=== PATIENT | male | born 1960 | race Caucasian/White ===

== ENCOUNTER 2018-10-22 19:28 | Inpatient (IN) | payer MEDICARE ==
[2018-10-22 20:36] LABS: BF Color Yellow; Body Fluid Source Peritoneal Fluid; Clarity Hazy (Clear); Tube # EDTA; WBC/NonHematic-Auto 2570 /cumm
[2018-10-22 20:37] LABS: BF RBC Count - Manual 8 /cumm
[2018-10-22 20:44] LABS: #Eosinphils 0.3 thou/uL (0.0-0.7); #Lymphocytes 1.1 thou/uL (1.20-3.40); #Monocytes 0.8 thou/uL (0.11-0.59); #Neutrophils 9.8 thou/uL (1.40-6.50); %Basophils 0.2 % (0.0-1.0); %Eosinophils 2.3 % (0.0-10.0); %Lymphocytes 9.1 % (21.0-51.0); %Monocytes 6.4 % (0.0-10.0); %Neutrophils 82.1 % (42.0-75.0); Hemoglobin 11.8 g/dL (14.0-18.0); Mean Corpuscular HGB CONC 34.8 g/dL (32.0-36.0); Mean Corpuscular Hemoglobin 31.3 pg (27.0-31.0); Mean Corpuscular Volume 89.7 fL (78.0-98.0); Mean Platelet Volume 7.3 fL (7.4-10.4); Platelet Count 289 thou/uL (130-400); RBC Distribution Width 12.3 % (11.5-14.5); Red Blood Cell (RBC) Count 3.76 mill/uL (4.70-6.10); White Blood Cell (WBC) Count 11.9 thou/uL (4.8-10.8)
[2018-10-22 20:49] LABS: BF Segmented Neutrophils 88 %; Cell Count Non Hematic 8 %; Lymphocytes 4 %
[2018-10-22 21:18] LABS: ALT (SGPT) 69 U/L (8-55); AST (SGOT) 68 U/L (5-34); Albumin 3.2 g/dL (3.5-5.0); Alkaline Phosphatase 74 U/L (40-150); Anion Gap 24 mmol/L (10-20); BUN (Urea Nitrogen) 71 mg/dL (8.4-25.7); Bilirubin, Total 0.5 mg/dL (0.2-1.2); Calc. Creatinine Clearance 0 mL/min (70-130); Calcium 8.7 mg/dL (7.8-10.44); Carbon Dioxide 14 mmol/L (22-29); Chloride 100 mmol/L (98-107); Estimated GFR-MDRD 3; Globulin 3.8 g/dL (2.4-3.5); Glucose 99 mg/dL (70-105); Sodium 135 mmol/L (136-145)
[2018-10-22 21:20] LABS: Potassium 2.8 mmol/L (3.5-5.1)
[2018-10-22] MEDS ORDERED: Ondansetron ODT 8 MG TAB ONE (22:28)
[2018-10-22] MEDS ORDERED: Ondansetron PF 4 MG/2 ML Vial ONE (22:28)
[2018-10-22] MEDS ORDERED: Morphine 4 MG/ML VIAL ONE (22:30)
[2018-10-22] MEDS ORDERED: Morphine 2 MG/ML SYRINGE ONE (22:31)
[2018-10-22] MEDS ORDERED: Acetaminophen 500 MG TAB ONE (23:41)
[2018-10-22] MEDS ORDERED: Cefepime 1 GM in Sodium Chloride 0.9% 100 ML IVPB SCH (23:45)
[2018-10-23 00:55] VITALS: BMI 33.2
--- NOTE | 2018-10-23 00:57 | PDOC.FPRHP ---
- History of Present Illness Chief Complaint: Abdominal Pain History of Present Illness: Pt is a 58 yo M with history of HTN and BPH who presents with abdominal pain. Pt said Sunday he felt a cyst pop inside of his abdomen. He has had 3 previous episodes that usually occur every year. He does peritoneal dialysis at night at home, but he was unable to since his catheter was clogged. He decided to go to the dialysis clinic, where they put TPA into his catheter. He began to experience abdominal pain after they put in the TPA. They marbin fluid off while there and he brought it with him to the hospital. He he had some nausea, vomiting, and diarrhea Sunday due to a stomach virus. He says when this happens everything seems to get off balance, but those symptoms have resolved. He has not eaten in the past 3 days. ED Course: In the ED, they started him on Vanc and Cefipime with Dr. Pedraza's instructions. The peritoneal fluid was found to have WBC. - Allergies/Adverse Reactions Allergies Allergy/AdvReac Type Severity Reaction Status Date / Time No Known Allergies Allergy Verified 10/23/18 01:04 - Home Medications Medication Instructions Recorded Confirmed Type Carvedilol [Coreg] 12.5 mg PO BID 08/01/16 10/23/18 History Cholecalciferol (Vitamin D3) 2,000 unit PO DAILY 08/01/16 10/23/18 History [Vitamin D3] Terazosin HCl [Hytrin] 2 mg PO HS 08/01/16 10/23/18 History Cipro 250 mg PO BID@0600,2000 #20 tab 08/05/16 10/23/18 Rx Calcitriol 0.5 mcg PO DAILY 10/23/18 10/23/18 History Calcium Acetate 2,001 mg PO TID-WM 10/23/18 10/23/18 History Cinacalcet HCl [Sensipar] 30 mg PO DAILY 10/23/18 10/23/18 History Ferrous Sulfate [Slow Release Iron] 325 mg PO BID 10/23/18 10/23/18 History Fexofenadine HCl 180 mg PO DAILY 10/23/18 10/23/18 History Glucosam/Chondr-Msm1/D3/C/Allen 2 tablet PO DAILY 10/23/18 10/23/18 History [Glucosamine Chondroitin Complex] Ibuprofen [Motrin] 400 mg PO TID PRN 10/23/18 10/23/18 History Multivitamin With Minerals 1 tablet PO DAILY 10/23/18 10/23/18 History [Multivitamins with Minerals] Omeprazole 20 mg PO DAILY PRN 10/23/18 10/23/18 History Potassium Chloride 7.5 ml PO DAILY 10/23/18 10/23/18 History Sucroferric Oxyhydroxide [Velphoro] 500 mg PO TID-WM 10/23/18 10/23/18 History - History PMHx: HTN, BPH PSHx: None FHx: None Social: He hasn't smoked in 25 years. His last beer was months ago, and he does not use recreational drugs. - Review of Systems General: reports: fever/chills (no fevers, he says he has chills all the time) Eyes: denies: vision changes ENT: denies: nasal congestion Respiratory: denies: cough, shortness of breath Cardiovascular: denies: chest pain Gastrointestinal: reports: abdominal pain. denies: nausea, vomiting, diarrhea, constipation Skin: denies: rashes, itching Musculoskeletal: reports: pain (low back pain) Neurological: denies: numbness, weakness - Vital signs BP: [120/73] HR: [100] RR: [16] Tmax: [98.1] Pox: [96]% on [RA] Wt: [107 kg] - Physical Exam Constitutional: awake, alert and oriented (He was sitting uncomfortably) HEENT: PERRLA, EOMI, MMM, oropharynx clear Neck: no LAD Heart: RRR, normal S1/S2 Lungs: CTAB Abdomen: bowel sounds present -Abdomen: TTP in all quadrants, guarding present Musculoskeletal: normal structure, ROM grossly normal Neurological: no focal deficit Skin: no rash/lesions Heme/Lymphatic: no unusual bruising or bleeding Psychiatric: intact recent and remote memory FMR H&P: Results - Labs Result Diagrams: 10/23/18 05:08 10/23/18 05:08 Lab results: WBC 11.9 thou/uL (4.8-10.8) H 10/22/18 20:37 Hgb 11.8 g/dL (14.0-18.0) L 10/22/18 20:37 Hct 33.8 % (42.0-52.0) L 10/22/18 20:37 MCV 89.7 fL (78.0-98.0) 10/22/18 20:37 Plt Count 289 thou/uL (130-400) 10/22/18 20:37 Neutrophils % 82.1 % (42.0-75.0) H 10/22/18 20:37 Sodium 135 mmol/L (136-145) L 10/22/18 20:37 Potassium 2.8 mmol/L (3.5-5.1) L* 10/22/18 20:37 Chloride 100 mmol/L (98-107) 10/22/18 20:37 Carbon Dioxide 14 mmol/L (22-29) L 10/22/18 20:37 BUN 71 mg/dL (8.4-25.7) H 10/22/18 20:37 Creatinine 15.25 mg/dL (0.7-1.3) H 10/22/18 20:37 Glucose 99 mg/dL (70-105) 10/22/18 20:37 Calcium 8.7 mg/dL (7.8-10.44) 10/22/18 20:37 Total Bilirubin 0.5 mg/dL (0.2-1.2) 10/22/18 20:37 AST 68 U/L (5-34) H 10/22/18 20:37 ALT 69 U/L (8-55) H 10/22/18 20:37 Alkaline Phosphatase 74 U/L (40-150) 10/22/18 20:37 Serum Total Protein 7.0 g/dL (6.0-8.3) 10/22/18 20:37 Albumin 3.2 g/dL (3.5-5.0) L 10/22/18 20:37 FMR H&P: A/P - Problem List (1) Peritonitis Current Visit: No Status: Suspected Code(s): K65.9 - PERITONITIS, UNSPECIFIED Comment: Gram Negative rods (2) HTN (hypertension) Current Visit: No Status: Chronic Code(s): I10 - ESSENTIAL (PRIMARY) HYPERTENSION - Plan Pt is a 58 yo M with history of HTN and BPH who presents with abdominal pain. 1. Peritonitis Generalized abdominal pain * WBCs: 2500 with neutrophil predominance seen in peritoneal fluid * Started on Vanc and Cefepime * Dr. Pedraza consulted * Will wait to see results of Cx and diff 2. HTN * BP: 126/77 * Will continue Carvediolol * Will monitor his BP 3. BPH * Will continue Terazosin Lines: Peripheral Code Status: Full Diet: NPO, possible surgery tomorrow Activity: Ad Twyla DVT Prophylaxis: Heparin Dispo: Inpt, expected LOS >2 days FMR H&P: Upper Level - Pertinent history 58 yo M w/ pMH of ESRD on daily PD presents with one week history of increasing abdominal pain. Pt reports pain started Sunday and progressively worsened. He reports he went to dialysis center for evaluation after clogged PD catheter and was given TPA and sent for continued abx for peritonitis. Fluid was drawn and sent for culture and sensitivities. Currently denies fever, chills, NVDC. Pt does report abdominal pain. - Pertinent findings ROS: As above PE: Gen: Mild pain HEENT: NCAT CV: Tachycardic, rhythm regular Pulm: CTA-B/L Abd: Soft, positive rebound tenderness and guarding. Diminished BSX4. PD catheter in place w/o surrounding erythema Skin: No rashes/lesions - Plan Date/Time: 10/23/18 0051 I, Vishnu Connelly, , have evaluated this patient and agree with findings/ plan as outlined by inclusion internship resident. Pertinent changes/additions are listed here. 1) Peritonitis - fluid studies pending - cont vanc and cefepime renally dosed per pharm recs - vanc trough daily prior to subsequent dose to be drawn after dialysis - nephro consulted, appreciate recs 2) BPH: - cont home meds 3) Tachycardia: normal rhythm on exam 12 lead ordered 4) HTN - Cont home medications PCP: None city call Code Status: Full code Dispo: Stable, admit to medical IP for continued abx therapy and await fluid cultures. Addendum - Attending - Attending Attestation Date/Time: 10/23/18 3101 I personally evaluated the patient and discussed the management with Dr. Jules/ Godwin. I agree with the History, Examination, Assessment and Plan documented above with any addition or exceptions noted below. Patient here for abdominal pain concerning for peritonitis. Nephro on board, advised continuing abx for now. They will try to open up PD catheter. He is currently afebrile and no abdominal pain. Plans for PD tonight.
[2018-10-23] MEDS ORDERED: Potassium Chloride 20 MEQ TAB PO SCH ×2 (01:30→06:30)
[2018-10-23] MEDS ORDERED: Ondansetron ODT 4 MG TAB PO PRN (02:17)
[2018-10-23] MEDS ORDERED: Senokot S 8.6-50 MG TAB PO PRN (02:17)
[2018-10-23] MEDS ORDERED: Vancomycin HCl 1 GM in Sodium Chloride 0.9% 250 ML 300 ML IVPB SCH (06:00)
[2018-10-23] MEDS ORDERED: Cefepime 1 GM in Sodium Chloride 0.9% 100 ML IVPB SCH ×2 (06:00→23:59)
[2018-10-23] MEDS: Acetaminophen 325 MG TAB PO PRN ×2 (06:03→18:31)
[2018-10-23 06:10] LABS: Anion Gap 23 mmol/L (10-20); BUN (Urea Nitrogen) 75 mg/dL (8.4-25.7); Calc. Creatinine Clearance 8 mL/min (70-130); Calcium 8.4 mg/dL (7.8-10.44); Carbon Dioxide 15 mmol/L (22-29); Chloride 100 mmol/L (98-107); Estimated GFR-MDRD 3; Glucose 129 mg/dL (70-105); Sodium 135 mmol/L (136-145)
[2018-10-23 06:19] LABS: Potassium 2.9 mmol/L (3.5-5.1)
[2018-10-23 06:20] LABS: Band 31 % (5-11); Hemoglobin 11.2 g/dL (14.0-18.0); Lymphocytes 5 % (21-51); MDiff Complete? YES; Mean Corpuscular HGB CONC 34.6 g/dL (32.0-36.0); Mean Corpuscular Hemoglobin 31.2 pg (27.0-31.0); Mean Corpuscular Volume 90.1 fL (78.0-98.0); Mean Platelet Volume 7.2 fL (7.4-10.4); Monocytes 3 % (0-10); Neutrophil 61 % (42-75); Platelet Count 263 thou/uL (130-400); Platelet Morphology Comment Appears Adequate; RBC Distribution Width 12.3 % (11.5-14.5); Red Blood Cell (RBC) Count 3.59 mill/uL (4.70-6.10); White Blood Cell (WBC) Count 16.9 thou/uL (4.8-10.8)
[2018-10-23] MEDS: Ferrous Sulfate 325 MG TAB PO SCH (09:00)
[2018-10-23] MEDS: Heparin 5,000 UNITS/ML VIAL SC SCH ×3 (09:00→21:01)
[2018-10-23] MEDS: Famotidine 20 MG TAB PO SCH (09:00)
[2018-10-23] MEDS: Carvedilol 6.25 MG TAB PO SCH ×2 (09:00→21:54)
[2018-10-23] MEDS ORDERED: Calcitriol 0.25 MCG CAP PO SCH (09:00)
[2018-10-23] MEDS: Potassium Chloride 20 MEQ/100 ML PREMIX BAG IVPB SCH ×2 (10:42→12:34)
[2018-10-23] MEDS: Calcium Acetate 667 MG CAP PO SCH ×3 (10:42→18:32)
--- NOTE | 2018-10-23 11:37 | CON ---
DATE OF CONSULTATION: SERVICE: Renal Medicine. HISTORY OF PRESENT ILLNESS: Mr. Ribeiro is a 58-year-old white male with ESRD and admitted for abdominal pain. His PD fluid was noted to be quite cloudy. Empiric IV antibiotic was given. In addition, the PD catheter was not functioning well and Activase overnight was placed. For this reason, we will attempt to use the peritoneal dialysis tonight. He is empirically on IV vancomycin and IV ceftazidime. REVIEW OF SYSTEMS: Positive for abdominal pain. Positive for cloudy PD fluid. No nausea. No vomiting. Positive for mild abdominal pain. No diarrhea. No constipation. No dysuria. No urinary frequency. No headache. No diplopia. No syncopal episode. Denies any fever or chills. Appetite and energy level are fair. MEDICATIONS: The patient is currently on; 1. Calcitriol 0.25 mg once a week. 2. Calcium acetate 1667 mg 2 tablets t.i.d. with meals. 3. Carvedilol 12.5 mg p.o. b.i.d. 4. Cefepime 1 g IV daily. 5. Cholecalciferol 2000 units daily. 6. Famotidine 20 mg tablet once a day. 7. Ferrous sulfate 325 mg q.a.m. 8. Heparin 5000 units subcu t.i.d. 9. KCl p.r.n. 10. Terazosin 2 mg at bedtime. 11. Vancomycin 1 g p.r.n. PAST MEDICAL HISTORY: ESRD and currently on maintenance peritoneal dialysis - CCPD - secondary to autosomal dominant polycystic kidney disease. PAST SURGICAL HISTORY: Status post PD catheter placement. SOCIAL HISTORY: The patient lives in the [facility] area. He is single, lives alone. No children. No smoking. No alcohol. Currently not working. Education, high school. No IV drug abuse. No blood transfusion. ALLERGIES: NONE. TRAUMA: None. IMMUNIZATIONS: Up-to-date. HOSPITALIZATIONS: Please see past medical history. FAMILY HISTORY: Positive family history of ESRD, one brother was on dialysis. PHYSICAL EXAMINATION: VITAL SIGNS: Blood pressure is 131/85, heart rate 93, respiratory rate 20, temperature 97.7, and pulse ox 92% on room air. GENERAL: Noted to be awake, alert, comfortable, not in distress. SKIN: Adequate turgor. HEENT: He has pinkish conjunctivae. Anicteric sclerae. NECK: No neck mass. No carotid bruits. No JVD. CHEST: No deformities. LUNGS: Clear breath sounds. No wheezing. No crackles. HEART: Normal sinus rhythm. No murmur. No gallops. No rubs. ABDOMEN: Globular, soft. Mildly tender on deep palpation. Positive for PD catheter. EXTREMITIES: No edema. No deformities. LABORATORY DATA: Laboratories of October 23, 2018; white count 16.9, hemoglobin 11.2. Sodium 135, potassium 2.9, chloride 100, carbon dioxide 15, BUN 75, creatinine 15.23, glucose 129, and calcium 8.4. Blood culture, no growth today. PD fluid Gram stain, no bacteria noted. Culture are still pending. PD cell count shows 2570, mostly segmental neutrophils. ASSESSMENT AND PLAN: 1. Acute peritonitis - awaiting for peritoneal dialysis fluid culture to come. We will empirically treat with IV antibiotics. Currently, on cefepime and vancomycin. Continue current management. 2. End-stage renal disease - we will resume peritoneal dialysis tonight. Activase was placed in the peritoneal dialysis catheter due to the fact it was nonfunctional. We will attempt to use the peritoneal dialysis catheter tonight. Overall, agree with current management. Job ID: [id number]
[2018-10-23] MEDS: Terazosin HCl 1 MG CAP PO SCH (21:01)
[2018-10-23] MEDS: Cefepime 1 GM in Sodium Chloride 0.9% 100 ML IVPB SCH (23:51)
[2018-10-23 23:52] LABS: Vancomycin, Trough 11.4 ug/mL
[2018-10-24] MEDS ORDERED: Vancomycin HCl 1 GM in Sodium Chloride 0.9% 250 ML 300 ML IVPB SCH (00:01)
[2018-10-24 06:01] LABS: #Eosinphils 0.1 thou/uL (0.0-0.7); #Lymphocytes 0.5 thou/uL (1.20-3.40); #Monocytes 0.7 thou/uL (0.11-0.59); #Neutrophils 11.4 thou/uL (1.40-6.50); %Eosinophils 0.7 % (0.0-10.0); %Lymphocytes 3.9 % (21.0-51.0); %Monocytes 5.4 % (0.0-10.0); %Neutrophils 90.1 % (42.0-75.0); Hemoglobin 10.1 g/dL (14.0-18.0); Mean Corpuscular HGB CONC 32.9 g/dL (32.0-36.0); Mean Corpuscular Volume 94.2 fL (78.0-98.0); Mean Platelet Volume 7.8 fL (7.4-10.4); Platelet Count 224 thou/uL (130-400); RBC Distribution Width 12.6 % (11.5-14.5); Red Blood Cell (RBC) Count 3.27 mill/uL (4.70-6.10); White Blood Cell (WBC) Count 12.6 thou/uL (4.8-10.8)
[2018-10-24 06:22] LABS: Anion Gap 24 mmol/L (10-20); BUN (Urea Nitrogen) 94 mg/dL (8.4-25.7); Calc. Creatinine Clearance 8 mL/min (70-130); Calcium 9.5 mg/dL (7.8-10.44); Carbon Dioxide 13 mmol/L (22-29); Chloride 103 mmol/L (98-107); Estimated GFR-MDRD 3; Glucose 98 mg/dL (70-105); Potassium 3.5 mmol/L (3.5-5.1); Sodium 136 mmol/L (136-145)
[2018-10-24] MEDS: Carvedilol 6.25 MG TAB PO SCH ×2 (08:12→21:10)
[2018-10-24] MEDS: Calcium Acetate 667 MG CAP PO SCH ×3 (08:12→17:04)
[2018-10-24] MEDS: Ferrous Sulfate 325 MG TAB PO SCH (08:12)
[2018-10-24] MEDS: Famotidine 20 MG TAB PO SCH (08:13)
[2018-10-24] MEDS: Heparin 5,000 UNITS/ML VIAL SC SCH ×3 (08:13→21:10)
--- NOTE | 2018-10-24 08:59 | PDOC.FM ---
- Subjective Subjective: Pt is doing well today. No change from yesterday. Dr. Pedraza was unable to regain function of PD catheter. NPO at this time. - Objective Vital Signs & Weight: Vital Signs (12 hours) Temp Pulse Resp BP BP Pulse Ox 10/24/18 08:12 99/64 10/24/18 07:50 98.3 F 84 22 H 104/68 94 L 10/24/18 00:00 98.1 F 77 18 101/66 92 L 10/23/18 21:54 99/64 Weight Admit Weight 107.32 kg Weight 107.32 kg I&O: 10/23/18 10/24/18 10/25/18 06:59 06:59 06:59 Intake Total 200 1090 Output Total 50 Balance 150 1090 Result Diagrams: 10/24/18 05:34 10/24/18 05:34 Phys Exam - Physical Examination Constitutional: NAD HEENT: PERRLA, moist MMs Neck: no JVD, full ROM Respiratory: no wheezing, no rhonchi, clear to auscultation bilateral Cardiovascular: RRR, no significant murmur Gastrointestinal: soft, non-tender distended abdomen, bowel sounds difficult to appreciate w/ fluid Musculoskeletal: pulses present trace edema Dx/Plan (1) Acute peritonitis Code(s): K65.0 - GENERALIZED (ACUTE) PERITONITIS Status: Acute (2) Abdominal pain Code(s): R10.9 - UNSPECIFIED ABDOMINAL PAIN Status: Acute (3) ESRD (end stage renal disease) on dialysis Code(s): N18.6 - END STAGE RENAL DISEASE; Z99.2 - DEPENDENCE ON RENAL DIALYSIS Status: Chronic (4) HTN (hypertension) Code(s): I10 - ESSENTIAL (PRIMARY) HYPERTENSION Status: Chronic (5) Peritonitis Code(s): K65.9 - PERITONITIS, UNSPECIFIED Status: Suspected (6) Sepsis Code(s): A41.9 - SEPSIS, UNSPECIFIED ORGANISM Status: Suspected - Plan Plan: Pt is a 58 yo M with history of HTN and BPH who presents with abdominal pain. 1. Peritonitis Generalized abdominal pain * WBCs: 2500 with neutrophil predominance seen in peritoneal fluid * Started on Vanc and Cefepime; Vanc trough 11.4, pharmacy to dose * Dr. Pedraza consulted, he was unable to regain function of PD catheter with ateplase. Will need PD catheter exchange and temporary hemodialysis * Dr. Palmer consulted * Will wait to see results of Cx and diff 2. HTN * BP: 126/77 * Will continue Carvediolol * Will monitor his BP 3. BPH * Will continue Terazosin Lines: Peripheral Code Status: Full Diet: NPO, possible surgery tomorrow Activity: Ad Twyla DVT Prophylaxis: Heparin Dispo: Inpt, expected LOS >2 days Addendum - Attending - Attending Attestation Date/Time: 10/24/18 1140 I personally evaluated the patient and discussed the management with Dr. Montes. I agree with the History, Examination, Assessment and Plan documented above with any addition or exceptions noted below. Patient here on abx with concern for infected PD catether and peritonitis. He is overall doing well. Afebrile. His PD catheter is nonfunctional. Patient will undergo HD port placement with Surgery today and will need revision of his PD catheter. Continue abx and await cx.
[2018-10-24] MEDS ORDERED: Vancomycin HCl 1.5 GM in Sodium Chloride 0.9% 250 ML 300 ML IVPB SCH (09:00)
[2018-10-24] MEDS ORDERED: Vancomycin HCl 1 GM in Premix Bag 1 BAG IVPB SCH (09:00)
[2018-10-24] MEDS ORDERED: Vancomycin HCl 750 MG in Sodium Chloride 0.9% 250 ML 250 ML IVPB SCH (09:00)
[2018-10-24] MEDS ORDERED: Vancomycin Sliding Scale 1 EACH FS SCH (09:00)
[2018-10-24] MEDS ORDERED: HOLD VANCOMYCIN FOR LEVEL >20 FS SCH (09:00)
[2018-10-24] MEDS ORDERED: Vancomycin HCl 1.25 GM in Sodium Chloride 0.9% 250 ML 250 ML IVPB SCH (09:00)
--- NOTE | 2018-10-24 09:20 | PRG ---
DATE OF SERVICE: 10/24/2018 SUBJECTIVE: Mr. Ribeiro is a 58-year-old white male with ESRD - on peritoneal dialysis and admitted for peritonitis. He is currently on empiric IV antibiotics. So far, the PD fluid culture and blood culture are still no growth to date and is still pending. He is complaining of abdominal pain. We tried using the PD catheter, but it is not working. For this reason, we will consult Surgery for replacement of the PD catheter as well as placement of the temporary hemodialysis catheter. OBJECTIVE: VITAL SIGNS: Blood pressure is 104/68, heart rate 84, respiratory rate 22, temperature 98.2, and pulse ox 94%. GENERAL: Awake, alert, comfortable, not in distress. SKIN: Adequate turgor. HEENT: He has pinkish conjunctivae. Anicteric sclerae. NECK: No neck mass. No carotid bruits. No JVD. CHEST: No deformities. LUNGS: Clear breath sounds. HEART: Normal sinus rhythm. No murmur. No gallops. No rubs. ABDOMEN: Globular, soft. Positive for mild tenderness. Positive for PD catheter. EXTREMITIES: No edema. MEDICATIONS: Medications of October 24, 2018, was reviewed. LABORATORY DATA: Of October 24, 2018; white count 12.6, hemoglobin 10. Sodium 136, potassium 3.5, chloride 103, carbon dioxide 13, BUN 94, creatinine 15.43, glucose 98, and calcium 9.5. ASSESSMENT AND PLAN: 1. Peritonitis. Currently, on empiric IV vancomycin and IV cefepime. Continue current management. Awaiting results of the peritoneal dialysis culture and blood culture. 2. End stage renal disease - peritoneal dialysis catheter is nonfunctional. We will request surgical consult for replacement of this peritoneal dialysis catheter. In addition, a temporary hemodialysis catheter was requested. 3. Agree with overall management. Recheck basic metabolic and CBC in a.m. Job ID: [id number]
[2018-10-24] MEDS ORDERED: CEFAZOLIN 2 GM in Premix Bag 1 BAG IVPB SCH (12:45)
[2018-10-24] MEDS ORDERED: Sodium Chloride 0.9% 0 ML ONE (14:09)
[2018-10-24] MEDS ORDERED: Heparin 10,000 UNITS/1 ML VIAL ONE (14:09)
[2018-10-24] MEDS ORDERED: Bupivacaine/Epinephrine 0.25% 30 ML VIAL ONE (14:09)
[2018-10-24] MEDS ORDERED: Lidocaine 2% PF 5 ML VIAL ONE (14:09)
[2018-10-24] MEDS ORDERED: Fentanyl 100 MCG/2 ML VIAL ONE (14:22)
[2018-10-24] MEDS ORDERED: ceFAZolin Sodium (SDC) 2 GM/100 ML BAG ONE (14:23)
--- NOTE | 2018-10-24 14:29 | CON ---
DATE OF CONSULTATION: REASON FOR CONSULT: Nonfunctioning peritoneal dialysis catheter with need for dialysis access. HISTORY OF PRESENT ILLNESS: Mr. Ribeiro is a 58-year-old man with end-stage renal failure due to polycystic kidney disease, who presented to the hospital with a nonfunctioning dialysis catheter. He does chronic peritoneal dialysis at home and states that several days before his admission one of his cysts popped and he had bloody drainage for several days, which was then clearing up. He had abdominal pain when the cyst popped, but that was also improving. He states that just as the drainage was clearing up, he had difficulty getting the catheter to drain, although it would flush and so he came to the dialysis clinic. TPA was used, but this was not successful and getting the catheter to function properly, so he was sent to the hospital, where it was treated again without effect. He did have peritoneal dialysis sent to the lab and this had white cells, but no bacteria and cultures are negative at 36 hours. He denies any fevers or chills. He states that right before his cyst popped, he was having some gastroenteritis with some nausea and GI distress, but this was also improving when he came into the hospital. REVIEW OF SYSTEMS: Ten-system review of systems is negative, except per HPI. PAST MEDICAL HISTORY: Polycystic kidney disease, end-stage renal failure as a result from BPH. PAST SURGICAL HISTORY: Peritoneal dialysis catheter placement at the [facility], 5 years ago. 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 Does not smoke, drink, or use illicit drugs. ALLERGIES: HE HAS NO KNOWN DRUG ALLERGIES. OUTPATIENT MEDICATIONS: Include, 1. Calcitriol. 2. Calcium. 3. Carvedilol. 4. cholecalciferol. 5. Pepcid. 6. Iron. 7. Potassium. 8. Terazosin. 9. He is also on vancomycin and cefepime for presumed peritonitis. FAMILY HISTORY: Noncontributory. PHYSICAL EXAMINATION: VITAL SIGNS: The patient has been afebrile since his admission. Heart rate 88, respirations 18, 90% saturated on room air, blood pressure 110/71. GENERAL: Reveals a pleasant man, in no acute distress. He is not flushed or toxic. He is not jaundiced or icteric. HEENT: Unremarkable. NECK: Supple without lymphadenopathy or thyroid nodules. HEART: Regular in its rate and rhythm without murmurs, rubs, or gallops. LUNGS: Clear to auscultation bilaterally. ABDOMEN: Soft and nondistended. He has some minimal tenderness to palpation in the upper midline, which he states is due to rib pain when I press on that area. He does not exhibit any rigidity, rebound, peritonitis, or guarding. His PD exit site looks clean. No palpable hernias or masses. EXTREMITIES: Warm and well perfused without edema. NEURO: No focal deficit. PSYCHIATRIC: Alert, oriented, and appropriate. LABORATORY DATA: White count is 12.6. He does have a left shift with 90% segmented neutrophils. Hematocrit is 30, platelets are 224. Creatinine is 15.4, bicarb is 13. AST and ALT were mildly elevated on admission at 68 and 69. ASSESSMENT: Nonfunctioning peritoneal dialysis catheter. Peritoneal cultures are negative at 36 hours. The patient states that his abdominal pain is improving. Differential diagnosis includes peritonitis versus fibrin plugging from ruptured cyst. The patient states that he ruptures cyst about once a year and that this is very typical for how he feels when that happens. He does not have fevers or chills, and is certain he does not have peritonitis. Initially, the plan was to remove the peritoneal dialysis catheter and place a hemodialysis catheter with plans to return at a later date for replacement of the peritoneal dialysis catheter, but the patient does not wish to go on hemodialysis. 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 He understands that if he does have peritonitis that removal of the new dialysis catheter could be necessary. However, if the catheter can be unclogged or replaced, he can undergo low volume peritoneal dialysis and avoid hemodialysis. I did explain to him that if it looks like he has julia peritonitis when I get in that I will simply remove the catheter and place a tunneled hemodialysis catheter and he is agreeable to this plan as a last resort. Inherent risks of the surgery were discussed with the patient. These included bleeding, infection, risks of anesthesia, need for other procedures, damage to nearby structures including bowel, blood vessels, bladder, liver, and kidney. Risks of the tunneled dialysis catheter also included hemothorax, pneumothorax, and DVT. He understands and accepts these risks and wishes to proceed. He is on scheduled antibiotics. All of his questions were answered. Job ID: [id number]
[2018-10-24] MEDS ORDERED: SUGAMMADEX SODIUM 500 MG/5 ML VIAL ONE (16:24)
--- NOTE | 2018-10-24 20:57 | PDOC.OP ---
Operative Note - Operative Note Operative Note: PROCEDURE: Laparoscopic lysis of adhesions and abdominal washout SURGEON: Ezio Regan M.D. DATE: 10/24/2018 PREOPERATIVE DIAGNOSIS: Nonfunctioning peritoneal dialysis catheter POSTOPERATIVE DIAGNOSIS: Nonfunctioning peritoneal dialysis catheter due to acute adhesions from peritonitis HISTORY: Patient with end-stage renal failure due to polycystic kidney disease who is on peritoneal dialysis. He believes that he ruptured a cyst and had sudden onset of abdominal pain and bloody peritoneal dialysis output. He started draining fibrinous debris and ultimately his catheter quit working. TPA was unsuccessful in unclogging the catheter and he was admitted to the hospital. Initial recommendation was for removal of peritoneal dialysis catheter and placement of tunneled hemodialysis catheter but the patient does not want to proceed with this. He does not want to go on hemodialysis and wants to keep the peritoneal dialysis catheter, and since his abdominal pain is improving and his cultures are negative his emery wheel molder is agreeable with this plan. PROCEDURE IN DETAIL: After informed consent was obtained and appropriate preoperative antibiotics continued the patient was taken to the operating room he was placed in supine position and general endotracheal anesthesia was administered he was prepped and draped in the standard sterile fashion and the connector to his peritoneal dialysis catheter soaked an antiseptic solution. This was disconnected from the external portion and carbon dioxide gas insufflated through the peritoneal dialysis catheter to an intra-abdominal pressure 15 which the patient tolerated well. Local anesthesia was infused the skin and subcutaneous tissues at the level of the umbilicus and a transverse skin incision was made. A [place] port was advanced under direct laparoscopic vision into the abdominal cavity which was carefully examined. The patient had frequent fibrinous debris and cloudy peritoneal fluid in the abdominal cavity as well as multiple acute-appearing interloop adhesions. This was all consistent with acute peritonitis although could not be determined whether this was infectious or chemical due to a ruptured cyst. Additional local anesthesia was infused in the right lateral abdomen. A transverse skin incision was made and a second trocar placed under direct vision. The peritoneal fluid was suctioned out and sent to the lab for Gram stain and culture. Gram stain showed white cells but no organisms. The cloudy peritoneal fluid was suctioned out of the abdomen and dissection carried down along the peritoneal dialysis catheter. This was in good position in the pelvis but there were adhesions between the small bowel, sigmoid colon, and bladder preventing free flow into the pelvis. These adhesions were taken down bluntly and were acute in appearance. The dialysis catheter was drawn up out of the pelvis and examined and found to be intact with no plugging of the tubing or the side holes. As many of the interloop adhesions as possible were taken down bluntly to allow free movement of the bowel within the peritoneal cavity and to drain any interloop abscesses. None were found in the small intestine but a pelvic abscess was identified between the sigmoid colon and the bladder and drained. This fluid was also sent for Gram stain and culture. There was no evidence of perforation or fistulization of the sigmoid or of the bladder and these both appeared secondarily inflamed with no focal inflammation or induration. The entire abdomen was copiously irrigated with warm saline until all return was clear. The peritoneal dialysis catheter was returned to its position in the pelvis and intra-abdominal pressure decreased to 8. The catheter was placed to gravity and drained freely. The remainder of the fluid in the abdomen was suctioned out and the right lateral trocar removed. A 0 Vicryl suture was used on a [place] needle to close the fascial defect but the suture was not tied down. The right lateral trocar was replaced and the umbilical trocar removed and a 0 Vicryl suture used on a [place] needle to close this fascial defect. This suture was also not tied down at the umbilical trocar replaced. The right lateral trocar was then removed and hemostasis verified. The fascial suture at that location was tied. Carbon dioxide gas was allowed to desufflate through the umbilical trocar which was then removed and the fascial suture tied. Additional local anesthesia was infused for postoperative pain control and the skin incisions were closed with 4 -0 subcuticular Monocryl sutures. Dermabond dressings were placed and the PD catheter capped and dressed with gauze and Tegaderm. The patient was extubated and taken to recovery in good condition. Estimated blood loss is minimal. There were no complications. Specimen is peritoneal fluid and pelvic abscess for Gram stain and culture.
[2018-10-24] MEDS: Acetaminophen 325 MG TAB PO PRN (21:20)
[2018-10-24] MEDS: Terazosin HCl 1 MG CAP PO SCH (21:29)
[2018-10-24] MEDS ORDERED: Cefepime 1 GM in Sodium Chloride 0.9% 100 ML IVPB SCH (23:59)
[2018-10-25] MEDS: Cefepime 1 GM in Sodium Chloride 0.9% 100 ML IVPB SCH ×2 (00:07→23:52)
[2018-10-25 05:51] LABS: #Lymphocytes 0.4 thou/uL (1.20-3.40); #Monocytes 0.2 thou/uL (0.11-0.59); #Neutrophils 11.6 thou/uL (1.40-6.50); %Eosinophils 0.1 % (0.0-10.0); %Lymphocytes 3.3 % (21.0-51.0); %Monocytes 1.5 % (0.0-10.0); %Neutrophils 95.1 % (42.0-75.0); Hemoglobin 10.5 g/dL (14.0-18.0); Mean Corpuscular HGB CONC 33.2 g/dL (32.0-36.0); Mean Corpuscular Hemoglobin 30.9 pg (27.0-31.0); Mean Corpuscular Volume 93.3 fL (78.0-98.0); Mean Platelet Volume 7.2 fL (7.4-10.4); Platelet Count 305 thou/uL (130-400); RBC Distribution Width 12.5 % (11.5-14.5); Red Blood Cell (RBC) Count 3.41 mill/uL (4.70-6.10); White Blood Cell (WBC) Count 12.2 thou/uL (4.8-10.8)
[2018-10-25 06:20] LABS: Anion Gap 25 mmol/L (10-20); BUN (Urea Nitrogen) 114 mg/dL (8.4-25.7); Calc. Creatinine Clearance 8 mL/min (70-130); Calcium 9.3 mg/dL (7.8-10.44); Carbon Dioxide 12 mmol/L (22-29); Chloride 103 mmol/L (98-107); Estimated GFR-MDRD 3; Glucose 155 mg/dL (70-105); Potassium 3.9 mmol/L (3.5-5.1); Sodium 136 mmol/L (136-145)
--- NOTE | 2018-10-25 06:53 | PDOC.FM ---
- Subjective Subjective: Pt is doing well without any complaints. He has no changes from yesterday after surgery. His PD catheter removed and replaced. No HD due to PD catheter replacement. - Objective Vital Signs & Weight: Vital Signs (12 hours) Temp Pulse Resp BP BP Pulse Ox 10/25/18 04:46 98 10/25/18 00:00 97.4 F L 88 18 105/70 100 10/24/18 21:10 95 100/60 93 L 10/24/18 21:05 93 L 10/24/18 21:00 97.4 F L 116 H 20 92/67 91 L Weight Admit Weight 107.32 kg Weight 107.32 kg I&O: 10/23/18 10/24/18 10/25/18 06:59 06:59 06:59 Intake Total 200 1090 660 Output Total 50 Balance 150 1090 660 Result Diagrams: 10/25/18 05:19 10/25/18 05:19 Phys Exam - Physical Examination Constitutional: NAD Respiratory: no wheezing, clear to auscultation bilateral Cardiovascular: RRR, no significant murmur Gastrointestinal: non-tender, positive bowel sounds Abdomen distended. PD catheter properly bandaged Musculoskeletal: pulses present trace edema Psychiatric: normal affect, A&O x 3 Dx/Plan (1) Acute peritonitis Code(s): K65.0 - GENERALIZED (ACUTE) PERITONITIS Status: Acute (2) Abdominal pain Code(s): R10.9 - UNSPECIFIED ABDOMINAL PAIN Status: Acute (3) ESRD (end stage renal disease) on dialysis Code(s): N18.6 - END STAGE RENAL DISEASE; Z99.2 - DEPENDENCE ON RENAL DIALYSIS Status: Chronic (4) HTN (hypertension) Code(s): I10 - ESSENTIAL (PRIMARY) HYPERTENSION Status: Chronic (5) Peritonitis Code(s): K65.9 - PERITONITIS, UNSPECIFIED Status: Suspected (6) Sepsis Code(s): A41.9 - SEPSIS, UNSPECIFIED ORGANISM Status: Suspected - Plan Plan: Pt is a 58 yo M with history of HTN and BPH who presents with abdominal pain. # Peritonitis # Clogged PD catheter PD catheter unable to be unclogged with Ateplase by Dr. Pedraza. Pt did not want HD , so he discussed with Dr. Regan, Dr. Pedraza replacing PD catheter which was done 10/24/18. Peritoneal Fluid GS resulted gram negative bacilli, bacteremia gram positive bacilli, abscess gram positive, negative rods and positive cocci. Continue abx and wait sensitivities. Will talk with Dr. Pedraza about dialysis. - WBCs: 2500 with neutrophil predominance seen in peritoneal fluid -Started on Vanc and Cefepime; Vanc trough 11.4 on 10/24, pharmacy to dose - Dr. Pedraza consulted, darcy rec's - Dr. Regan performed surg, clearing and replacing PD catheter. - Will wait to see results of Cx and diff # Bactermia BCx grew gram positive bacilli - cont vanc, cefepime # HTN - Will continue Carvediolol # BPH - Will continue Terazosin Lines: Peripheral Code Status: Full Diet: Renal Diet Activity: Ad Twyla DVT Prophylaxis: Heparin Dispo: Inpt, expected LOS >2 days Addendum - Attending - Attending Attestation Date/Time: 10/25/18 1053 I personally evaluated the patient and discussed the management with Dr. Montes. I agree with the History, Examination, Assessment and Plan documented above with any addition or exceptions noted below. Patient doing well. Pain controlled. Continues on IV abx and awaiting cultures from his abdominal abscess associated with peritonitis and adhesions. He refused PD overnight and is obviously volume overloaded. Discussed the need for dialysis today. Discuss with Nephrology as patient is for some reason resistant to do PD here, but he is not quite ready for discharge home.
[2018-10-25] MEDS: Carvedilol 6.25 MG TAB PO SCH ×2 (09:02→20:20)
[2018-10-25] MEDS: Heparin 5,000 UNITS/ML VIAL SC SCH ×3 (09:02→20:21)
[2018-10-25] MEDS: Calcium Acetate 667 MG CAP PO SCH ×3 (09:02→16:34)
[2018-10-25] MEDS: Ferrous Sulfate 325 MG TAB PO SCH (09:02)
[2018-10-25] MEDS: Famotidine 20 MG TAB PO SCH (09:02)
[2018-10-25 10:18] LABS: Vancomycin, Trough 9.7 ug/mL
--- NOTE | 2018-10-25 11:25 | PRG ---
DATE OF SERVICE: 10/25/2018 SUBJECTIVE: Mr. Ribeiro is a 58-year-old white male, who was admitted for peritonitis as well as nonfunctional PD catheter. Surgery was consulted. He underwent exploration of his belly to address the nonfunctioning PD catheter. Numerous acute additions were noted and this was surgically removed by the surgeon. The PD catheter was retested, is now functioning. Our plan is to try him on CAPD today. He did refuse the CCPD last night. I did explain him we will do 2 exchanges today at noon time and at 6:00 p.m. using a 2 L fill volume. This is to ensure that the PD catheter is working and there will be no leak. For the peritonitis, we are currently treating him with IV antibiotics. The results of the blood culture grew gram-positive evy and the PD fluid, which showed Bacteroides fragilis. No other complaints today. OBJECTIVE: VITAL SIGNS: Blood pressure is 112/70, heart rate 98, respiratory rate 18, and temperature 97.3. GENERAL: He is awake, alert, and comfortable, not in distress, obese. SKIN: Adequate turgor. HEENT: Pinkish conjunctivae. Anicteric sclerae. No neck mass. No carotid bruits. No JVD. CHEST: No deformities. LUNGS: Clear breath sounds. No wheezing. No crackles. HEART: Normal sinus rhythm. No murmur. No gallops or rubs. ABDOMEN: Globular, soft, and nontender. No masses. EXTREMITIES: No edema. No deformities. MEDICATIONS: Medications of October 25, 2018, reviewed. LABORATORY DATA: Laboratories of October 25, 2018; white count 12.2, hemoglobin 10.5. Sodium 136, potassium 3.9, chloride 103, carbon dioxide 12, BUN is 114, creatinine 15.7, glucose 155, and calcium 9.3. ASSESSMENT AND PLAN: 1. Acute peritonitis-continuing IV antibiotics. 2. Nonfunctioning PD catheter-this was surgically addressed by Dr. Regan. He cleaned out the adhesions. Good PD fluid flow was noted during the initial examination during surgery. My plan is to try him on peritoneal dialysis today. 3. End-stage renal disease-we will do continuous ambulatory peritoneal dialysis. We will do a 2 L exchange with this patient for 2 times today, then tomorrow we will do a 3 times a day continuous ambulatory peritoneal dialysis. 4. Overall, agree with current management. Job ID: [id number]
--- NOTE | 2018-10-25 12:28 | PQF ---
CLINICAL DOCUMENTATION IMPROVEMENT CLARIFICATION FORM: ICD-10 Updated PLEASE DO AN ADDENDUM TO THE PROGRESS NOTE WITH ANY DOCUMENTATION UPDATES OR ADDITIONS AND CARRY THROUGH TO DC SUMMARY. THANK YOU. DATE: 10/25/18 ATTN: DR. CAMPBELL Please exercise your independent, professional judgment in responding to the clarification form. Clinical indicators are provided on the bottom of this form for your review Please check appropriate box(es): [ ] Sepsis: [ x ] due to PERITONITIS [ x ] due to: PERITONEAL DIALYSIS CATHETER MALFUNCTION [ ] due to: [ ] Unable to determine In addition, please specify: Present on Admission (POA): [ x ] Yes [ ] No [ ] Unable to determine For continuity of documentation, please document condition throughout progress notes and discharge summary. Thank You. CLINICAL INDICATORS - SIGNS / SYMPTOMS / LABS PROGRESS NOTE 10/24: "SEPSIS" WBC 16.9 BANDS 31 PULSE 119 RR 26 RISKS: PERITONEAL DIALYSIS CATHETER PERITONITIS TREATMENT: IV CEFTAZIDINE (ER) IV VANCOMYCIN (ER-PRESENT) IV MAXIPIME (10/23-PRESENT) IV CEFAZOLIN (10/24-10/25) BLOOD CULTURES CULTURE OF PERITONEAL FLUID ADHESIOLYSIS (This form is maintained as a part of the permanent medical record) 2014 [employer]. All Rights Reserved BIENVENIDO [email or web address] Office: [phone] KAREN
[2018-10-25] MEDS ORDERED: Cefepime 2 GM VIAL FS ONE (19:44)
[2018-10-25] MEDS ORDERED: [UNRECOGNIZED DRUG - OTHER] FS SCH (19:45)
[2018-10-25] MEDS ORDERED: DEXTROSE FS SCH (19:45)
[2018-10-25] MEDS: Acetaminophen 325 MG TAB PO PRN (20:25)
[2018-10-25] MEDS: Terazosin HCl 1 MG CAP PO SCH (20:28)
[2018-10-26] MEDS: Acetaminophen 325 MG TAB PO PRN (02:45)
[2018-10-26 06:04] LABS: #Eosinphils 0.1 thou/uL (0.0-0.7); #Lymphocytes 0.5 thou/uL (1.20-3.40); #Monocytes 0.3 thou/uL (0.11-0.59); #Neutrophils 11.9 thou/uL (1.40-6.50); %Basophils 0.3 % (0.0-1.0); %Eosinophils 0.4 % (0.0-10.0); %Monocytes 2.5 % (0.0-10.0); %Neutrophils 92.7 % (42.0-75.0); Hemoglobin 9.8 g/dL (14.0-18.0); Mean Corpuscular HGB CONC 31.8 g/dL (32.0-36.0); Mean Corpuscular Hemoglobin 29.2 pg (27.0-31.0); Mean Corpuscular Volume 91.9 fL (78.0-98.0); Mean Platelet Volume 7.4 fL (7.4-10.4); Platelet Count 306 thou/uL (130-400); RBC Distribution Width 12.5 % (11.5-14.5); Red Blood Cell (RBC) Count 3.36 mill/uL (4.70-6.10); White Blood Cell (WBC) Count 12.8 thou/uL (4.8-10.8)
[2018-10-26 06:32] LABS: Anion Gap 23 mmol/L (10-20); BUN (Urea Nitrogen) 124 mg/dL (8.4-25.7); Calc. Creatinine Clearance 8 mL/min (70-130); Calcium 9.3 mg/dL (7.8-10.44); Carbon Dioxide 15 mmol/L (22-29); Chloride 103 mmol/L (98-107); Estimated GFR-MDRD 3; Glucose 124 mg/dL (70-105); Potassium 3.6 mmol/L (3.5-5.1); Sodium 137 mmol/L (136-145)
--- NOTE | 2018-10-26 07:11 | PDOC.FM ---
- Subjective Subjective: Pt is doing well. He had 2 exchanges yesterday without complications. IV infiltrated, pt did not want cefepime in PD catheter. - Objective Vital Signs & Weight: Vital Signs (12 hours) Temp Pulse Resp BP BP Pulse Ox 10/26/18 02:54 97.8 F 66 18 107/66 96 10/25/18 20:20 117/75 96 10/25/18 20:00 97.3 F L 63 20 117/75 96 Weight Admit Weight 107.32 kg Weight 107.32 kg I&O: 10/25/18 10/26/18 10/27/18 06:59 06:59 06:59 Intake Total 660 2360 Balance 660 2360 Result Diagrams: 10/26/18 05:45 10/26/18 05:45 Phys Exam - Physical Examination Constitutional: NAD HEENT: PERRLA Respiratory: no wheezing, no rhonchi, clear to auscultation bilateral Cardiovascular: RRR, no significant murmur Gastrointestinal: soft, non-tender distention Musculoskeletal: pulses present trace edema Dx/Plan (1) Acute peritonitis Code(s): K65.0 - GENERALIZED (ACUTE) PERITONITIS Status: Acute (2) Abdominal pain Code(s): R10.9 - UNSPECIFIED ABDOMINAL PAIN Status: Acute (3) ESRD (end stage renal disease) on dialysis Code(s): N18.6 - END STAGE RENAL DISEASE; Z99.2 - DEPENDENCE ON RENAL DIALYSIS Status: Chronic (4) HTN (hypertension) Code(s): I10 - ESSENTIAL (PRIMARY) HYPERTENSION Status: Chronic (5) Peritonitis Code(s): K65.9 - PERITONITIS, UNSPECIFIED Status: Suspected (6) Sepsis Code(s): A41.9 - SEPSIS, UNSPECIFIED ORGANISM Status: Suspected - Plan Plan: Pt is a 58 yo M with history of HTN and BPH who presents with abdominal pain. # Peritonitis # Clogged PD catheter - resolved # Sepsis - resolved PD catheter unable to be unclogged with Ateplase by Dr. Pedraza. Pt did not want HD , so he discussed with Dr. Milo Crandall replacing PD catheter which was done 10/24/18. Peritoneal Fluid GS resulted gram negative bacilli, blood cultures resulted gram positive bacilli (likely contaminate), abscess fluid resulted gram positive, negative rods and positive cocci. Pt continued on cefepime and vanc but due IV infiltrated last night, pt refused PD catheter cefepime. Will discuss PD catheter abx with rounding team, Dr. Pedraza. He received 2 exchange 10/25, plan is [address] Pedraza. - WBCs: 2500 with neutrophil predominance seen in peritoneal fluid - Dr. Pedraza consulted, darcy rec's - Dr. Regan performed surg, regain of function to PD catheter after surg. - Will wait to see results of Cx and diff # Bactermia BCx grew gram positive bacilli, likely contaminant, 03/13 bottles # HTN - Will continue Carvediolol # BPH - Will continue Terazosin Lines: Peripheral Code Status: Full Diet: Renal Diet Activity: Ad Twyla DVT Prophylaxis: Heparin Dispo: Inpt, expected LOS >2 days Addendum - Attending - Attending Attestation Date/Time: 10/26/18 2539 I personally evaluated the patient and discussed the management with Dr. Montes. I agree with the History, Examination, Assessment and Plan documented above with any addition or exceptions noted below. Patient being difficult overnight, refusing PD and his IV abx. I discussed with him that proper treatment of his condition involves both of those therapies. He plans to talk with Dr. Pedraza today. His labs are stable and he denies pain. Discussed the risks of him not taking abx for peritonitis and refusing his PD in the setting of not having it for several days.
[2018-10-26] MEDS: Heparin 5,000 UNITS/ML VIAL SC SCH ×2 (08:24→08:25)
[2018-10-26] MEDS: Ferrous Sulfate 325 MG TAB PO SCH (08:26)
[2018-10-26] MEDS: Calcium Acetate 667 MG CAP PO SCH (08:26)
[2018-10-26] MEDS: Carvedilol 6.25 MG TAB PO SCH (08:26)
[2018-10-26] MEDS: Famotidine 20 MG TAB PO SCH (08:26)
[2018-10-26 08:42] VITALS: BP 109/72; TEMP 97.3
[2018-10-26] MEDS ORDERED: Cipro 250 MG TAB PO SCH (10:30)
--- NOTE | 2018-10-26 11:19 | PRG ---
DATE OF SERVICE: 10/26/2018 SUBJECTIVE: Mr. Ribeiro is a 58-year-old white male with ESRD, admitted for abdominal pain/peritonitis. He is on empiric IV antibiotics. I try to convert him to intraperitoneal antibiotics, he declined. He also declined to have this peripheral line placed again, so he can receive IV cefepime. I had long discussion with this patient. He will be discharged today and will report to the PD clinic. We will attempt to incorporate antibiotics; vancomycin with cefepime at the [facility]al [facility]. I also instructed the house staff to proceed and send him home with at least Cipro 250 b.i.d. No new complaints again today except for postop pain. PD catheter is now currently working. OBJECTIVE: VITAL SIGNS: Blood pressure is 109/72, heart rate 71, respiratory rate 18, temperature 97.3, and pulse ox 98%. GENERAL: Awake, alert, ambulatory, comfortable. SKIN: Adequate turgor. HEENT: Slightly pale conjunctivae. Anicteric sclerae. No neck mass. No carotid bruits. No JVD. CHEST: No deformities. LUNGS: Clear breath sounds. HEART: Normal sinus rhythm. No murmurs, gallops, or rubs. ABDOMEN: Globular, soft, and nontender. No masses. EXTREMITIES: No edema. No deformities. He has a positive PD catheter. MEDICATIONS: Medications of October 26, 2018, reviewed. LABORATORIES: Laboratories of October 26, 2018; white count 12.8, hemoglobin 9.8. Sodium 137, potassium is 3.6, chloride 103, carbon dioxide 15, BUN 124, creatinine 15.56, glucose 124, calcium 9.3. ASSESSMENT AND PLAN: 1. Peritonitis-PD fluid showed a gram-negative evy. In addition, the blood culture showed a presumptive Corynebacterium. 2. The plan is to incorporate intraperitoneal ceftazidime. I will probably discontinue the vancomycin intraperitoneally. If he refuses intraperitoneal ceftazidime, we will continue the Cipro 250 p.o. b.i.d. 3. End-stage renal disease-I did instruct the patient to continue his CAPD. He refuses CCPD. 4. We will follow up this patient at the Renal Clinic. Job ID: [id number]
--- NOTE | 2018-10-28 14:28 | DIS ---
DATE OF ADMISSION: 10/23/2018 DATE OF DISCHARGE: 10/26/2018 RESIDENT: Luis Montes DO ADMITTING ATTENDING: Enrique Newton MD DISCHARGE ATTENDING: Les Rendon MD CONSULTS: 1. Nephrology, Dr. Ubaldo Pedraza. 2. Surgery, Dr. Ezio Regan. PROCEDURES: 1. Removal of dialysis catheter with replacement. 2. Dialysis. PRIMARY DIAGNOSES: 1. Bacterial peritonitis secondary to peritoneal dialysis, abscess formation. 2. End-stage renal disease requiring peritoneal dialysis. SECONDARY DIAGNOSES: 1. BPH. 2. Hypertension. DISCHARGE MEDICATIONS: 1. Terazosin 2 mg p.o. at bedtime. 2. Vitamin D3, 2000 units p.o. daily. 3. Coreg 12.5 mg p.o. b.i.d. 4. Calcium acetate 2001 mg p.o. t.i.d. 5. Sucroferric oxyhydroxide 500 mg p.o. t.i.d. 6. Sensipar 30 mg p.o. daily. 7. Potassium chloride 7.5 mL p.o. daily, 10 mEq. 8. Omeprazole 20 mg p.o. daily. 9. Multivitamin one tablet p.o. daily. 10. Ibuprofen 400 mg p.o. t.i.d. p.r.n. 11. Glucosamine chondroitin 2 tablets p.o. daily. 12. Fexofenadine 180 mg p.o. daily. 13. Calcitriol 0.5 mcg p.o. daily. 14. Ferrous sulfate 325 mg p.o. . 15. Ciprofloxacin 250 mg p.o. b.i.d. x10 days. HISTORY OF PRESENT ILLNESS AND HOSPITAL COURSE: Malcolm Ribeiro is a 58-year- old male with history significant for polycystic kidney disease requiring hemodialysis, who presented with acute onset of peritonitis, peritoneal dialysis catheter clogged. He states that on 10/21, he was properly using his dialysis catheter when he felt a pop in his abdomen. He thought one of these cysts had ruptured. Subsequently, his dialysis catheter ended up getting clogged and he was unable to use it. On Sunday, he went to the dialysis clinic where they tried to unclog the catheter, but were unable to. So at this time, Dr. Pedraza told him to go to the hospital. Dr. Pedraza also marbin fluid to be cultured, which ended up growing Bacteroides fragilis. Dr. Pedraza empirically treated the patient with vancomycin and cefepime. The patient continued on these medications through the stay. In the hospital, Dr. Pedraza tried to regain function of PD catheter with ateplase. He was unable to do so, so Surgery was consulted. Dr. Regan took him for procedure on 10/24 removing and replacing PD catheter with regain of function. During the procedure an intraperitoneal abscess was discovered, culture was taken growing gram-positive, gram negative organisms. Otherwise, the patient tolerated the procedure well. The patient desired to use PD catheter w/o placement of HD. Next day, the patient underwent 2 PD treatments and tolerated them well. In the late afternoon, his IV site blew and he did not want to be restarted, so antibiotics were at a standstill. At this time, he also did not want cefepime to be placed intra-abdominally. So the next day, discussed care with Dr. Pedraza who decided it would be best if the patient was discharged with p.o. ciprofloxacin for 10 days and to follow up with the dialysis clinic. Dr. Pedraza will follow up with him concerning his peritoneal dialysis. DISPOSITION: Stable. DISCHARGE INSTRUCTIONS: 1. Location: [facility]. 2. Diet: Renal protective. 3. Activity: Ad octaviano. 4. Followup: Followup Nephrology, Dr. Pedraza, on the day of discharge. Job ID: [id number] MTDD
== END 2018-10-26 11:00 | disposition home or self-care (01) | DRG 907 ==
LOC: ERS 19:28 → T4-B 10-23 00:51
PROVIDERS: ADMIT Family Medicine; ATTEND Family Medicine
PROC: 0DNW4ZZ Release Peritoneum, Percutaneous Endoscopic Approach (ICD-10-PCS; principal; 2018-10-24)
PROC: 5A1D70Z Performance of Urinary Filtration, Intermittent, Less than 6 Hours Per Day (ICD-10-PCS; 2018-10-25)
DX: T85.71XA Infection and inflammatory reaction due to peritoneal dialysis catheter, initial encounter (principal); A41.89 Other specified sepsis; N18.6 End stage renal disease; K65.2 Spontaneous bacterial peritonitis; I12.0 Hypertensive chronic kidney disease with stage 5 chronic kidney disease or end stage renal disease; N40.0 Benign prostatic hyperplasia without lower urinary tract symptoms; Y84.6 Urinary catheterization as the cause of abnormal reaction of the patient, or of later complication, without mention of misadventure at the time of the procedure; E66.9 Obesity, unspecified; Y92.9 Unspecified place or not applicable; Z99.2 Dependence on renal dialysis; Z68.33 Body mass index [BMI] 33.0-33.9, adult
CPT/HCPCS: 36415; 36416; 80048; 80053; 80202; 83735; 85025; 85060; 87040; 87070; 87076; 87205; 87252; 89051; 93005; 96365; 96372; J0690; J0692; J1642; J1644; J2001; J2270; J2405; J3010; J3370; J3480; J3490; J7050

== ENCOUNTER 2019-03-31 12:34 | Inpatient (IN) | payer MEDICARE ==
[2019-03-31 13:26] LABS: Hemoglobin 10.4 g/dL (14.0-18.0); Mean Corpuscular HGB CONC 33.2 g/dL (32.0-36.0); Mean Corpuscular Hemoglobin 31.6 pg (27.0-31.0); Mean Corpuscular Volume 95.3 fL (78.0-98.0); Mean Platelet Volume 10.1 fL (7.4-10.4); Platelet Count 188 thou/uL (130-400); RBC Distribution Width 12.4 % (11.5-14.5); White Blood Cell (WBC) Count 13.4 thou/uL (4.8-10.8)
[2019-03-31] MEDS ORDERED: Cefepime 1 GM VIAL ONE (13:42)
[2019-03-31 13:50] LABS: Band 29 % (5-11); Lymphocytes 1 % (21-51); MDiff Complete? YES; Monocytes 1 % (0-10); Neutrophil 69 % (42-75); Platelet Morphology Comment Appears Adequate; Polychromasia SLIGHT = 2-3 cells (100X) (0-2/hpf)
[2019-03-31 13:55] LABS: ALT (SGPT) 80 U/L (8-55); AST (SGOT) 66 U/L (5-34); Albumin 2.6 g/dL (3.5-5.0); Alkaline Phosphatase 321 U/L (40-110); Anion Gap 42 mmol/L (10-20); Bilirubin, Total 1.2 mg/dL (0.2-1.2); CK (CPK) 210 U/L (30-200); Calc. Creatinine Clearance 0 mL/min (70-130); Calcium 7.4 mg/dL (7.8-10.44); Chloride 94 mmol/L (98-107); Estimated GFR-MDRD 2; Globulin 4.4 g/dL (2.4-3.5); Glucose 180 mg/dL (70-105); Lipase 536 U/L (8-78); Magnesium 3.6 mg/dL (1.6-2.6); Sodium 138 mmol/L (136-145)
[2019-03-31 13:58] LABS: Carbon Dioxide 8 mmol/L (22-29)
--- NOTE | 2019-03-31 13:58 | RAD ---
CHEST 1 VIEW: HISTORY: Generalized weakness, dialysis patient. History of the flu. COMPARISON: 08/01/2016. FINDINGS: Heart size is within normal limits. The lungs are clear. No confluent pneumonia, overt edema, or pl eural effusion. IMPRESSION: Stable chest. No significant acute intrathoracic disease. POS: TPC
[2019-03-31 14:04] LABS: BUN (Urea Nitrogen) 308 mg/dL (8.4-25.7)
[2019-03-31 14:08] LABS: CKMB 12.5 ng/mL (0-6.6)
[2019-03-31] MEDS ORDERED: Activase 2 MG VIAL CATH SCH (14:45)
--- NOTE | 2019-03-31 14:49 | ULT ---
Right upper quadrant ultrasound: 03/31/2019 COMPARISON: None available HISTORY: History of polycystic kidney disease, abdominal pain TECHNIQUE: Multiplanar grayscale sonographic imaging of the right upper quadrant provided. FINDINGS: The pancreas is obscured by bowel gas. No focal liver lesion is evident on this examination The common bile duct is mildly dilated, measuring 8 mm. The gallbladder is distended and contains sma ll volume sludge. The gallbladder measures at least 13.6 cm in length and approximately 6.4 cm in transverse dimension. No gallbladder wall thickening or pericholecystic fluid. The wind turbine design engineer report s a negative Rangel's sign. Nonspecific small volume free fluid is noted in the right upper quadrant. Right kidney is enlarged an d contains numerous incompletely imaged cysts, consistent with the provided history of polycystic kidney disease. IMPRESSION: Mildly dilated common bile duct, which could signify biliary obstruction in the proper cl inical setting. Correlation with liver function tests advised. Of note, the gallbladder is distended and contains small volume sludge. No gallstones are seen. Nonspecific free fluid noted in the right upper quadrant. Fluid in the abdomen could potentially be e xplained by peritoneal dialysis if the patient is undergoing peritoneal dialysis. Otherwise, this is a nonspecific finding. If there is clinical concern for cholecystitis, hepatobiliary scan suggested.
[2019-03-31] MEDS ORDERED: Sterile Water 10 ML ONE (14:50)
[2019-03-31] MEDS ORDERED: Sterile Water 10 ML VIAL IVP SCH (15:00)
--- NOTE | 2019-03-31 16:24 | PDOC.HHP ---
Hospitalist HPI - History of Present Illness Gen weekaness, feeling unwell History of Present Illness: 58 yo M with history of ESRD on PD due to Polycystic kidneys, HTN and BPH who presented to the ER from his [employer]ist [employer] office due to non functioning PD cath , hyperkalemia and feeling unwell. Pt is a poor historian and states that he has been feeling unwell for a few days. he denies abd pain, fever, nausea, vomiting but admitted to chills and malaise. He also claimed to have been compliant with his daily PD. He went to his neurologist office today, where he was noted to have a clogged PD cath as well as low BP. There is a consideration for peritonitis so pt was asked to come to the ER where he has been admitted for further evaluation. Hospitalist ROS - Review of Systems Constitutional: reports: chills, weakness, malaise. denies: fever, sweats, other Respiratory: denies: cough, dry, shortness of breath, hemoptysis, SOB with excertion, pleuritic pain, sputum, wheezing, other Cardiovascular: denies: chest pain, palpitations, orthopnea, paroxysmal noc. dyspnea, edema, light headedness, other Gastrointestinal: denies: nausea, vomiting, abdominal pain, diarrhea, constipation, melena, hematochezia, other Neurological: denies: weakness, numbness, incoordination, change in speech, confusion, seizures, other Hospitalist History - Past Medical History Cardiac: reports: HTN Heme/Onc: reports: Anemia NOS Rheumatologic: reports: Other (Polycystic kidneys) Renal/: reports: Other (ESRd on PD) - Past Surgical History Past Surgical History: reports: Other (PD cath placement) - Social History Alcohol: reports: None - Exam General Appearance: NAD, awake alert Eye: PERRL, anicteric sclera ENT: normocephalic atraumatic, moist mucosa Neck: supple, symmetric, no JVD, no thyromegaly Heart: RRR, no murmur, no gallops, no rubs, normal peripheral pulses Respiratory: CTAB, no wheezes, no rales, no ronchi Gastrointestinal: soft, non-tender, non-distended, normal bowel sounds Gastrointestinal - other findings: PD cath noted Extremities: no cyanosis, no clubbing, no edema Skin: normal turgor, no rashes Neurological: cranial nerve grossly intact, no focal deficits Musculoskeletal: normal strength, no muscle wasting Psychiatric: A&O x 3 Hospitalist Results - Labs Result Diagrams: 03/31/19 13:12 03/31/19 13:12 Lab results: WBC 13.4 thou/uL (4.8-10.8) H 03/31/19 13:12 Hgb 10.4 g/dL (14.0-18.0) L 03/31/19 13:12 Hct 31.4 % (42.0-52.0) L 03/31/19 13:12 MCV 95.3 fL (78.0-98.0) 03/31/19 13:12 Plt Count 188 thou/uL (130-400) 03/31/19 13:12 Band Neuts % (Manual) 29 % (5-11) H 03/31/19 13:12 Sodium 138 mmol/L (136-145) 03/31/19 13:12 Potassium 6.0 mmol/L (3.5-5.1) H 03/31/19 13:12 Chloride 94 mmol/L (98-107) L 03/31/19 13:12 Carbon Dioxide 8 mmol/L (22-29) L* 03/31/19 13:12 BUN 308 mg/dL (8.4-25.7) H 03/31/19 13:12 Creatinine 22.40 mg/dL (0.7-1.3) H 03/31/19 13:12 Glucose 180 mg/dL (70-105) H 03/31/19 13:12 Lactic Acid 1.3 mmol/L (0.5-2.2) 03/31/19 13:27 Calcium 7.4 mg/dL (7.8-10.44) L 03/31/19 13:12 Total Bilirubin 1.2 mg/dL (0.2-1.2) 03/31/19 13:12 AST 66 U/L (5-34) H 03/31/19 13:12 ALT 80 U/L (8-55) H 03/31/19 13:12 Alkaline Phosphatase 321 U/L (40-110) H 03/31/19 13:12 Creatine Kinase 210 U/L (30-200) H 03/31/19 13:12 CK-MB (CK-2) 12.5 ng/mL (0-6.6) H* 03/31/19 13:12 Troponin I 0.063 ng/mL (< 0.028) H 03/31/19 13:12 Serum Total Protein 7.0 g/dL (6.0-8.3) 03/31/19 13:12 Albumin 2.6 g/dL (3.5-5.0) L 03/31/19 13:12 Lipase 536 U/L (8-78) H 03/31/19 13:12 Hospitalist H&P A/P - Problem (1) ESRD (end stage renal disease) on dialysis Code(s): N18.6 - END STAGE RENAL DISEASE; Z99.2 - DEPENDENCE ON RENAL DIALYSIS Status: Chronic Assessment and Plan: Pt has a clogged PD cath. His neurologist plans to unclog it. Will defer mgt and cont PD per Nephrology. (2) Hyperkalemia Code(s): E87.5 - HYPERKALEMIA Status: Acute Assessment and Plan: Likely due to ineffective PD. Nephrology has recommended Kayexalate and lactulose. He has also received bicarb in the ER. Will give calcium gluconate. Will monitor K levels. (3) Hypotension Status: Acute Assessment and Plan: May be due to acute infection. Will hydrate pt and give albumin. Will monitor BP. Will start pressors if indicated. (4) Metabolic acidosis Code(s): E87.2 - ACIDOSIS Status: Acute Assessment and Plan: Likely due to infection vs ESRD, will start bicab drip. Monitor CO levels. (5) Leucocytosis Code(s): D72.829 - ELEVATED WHITE BLOOD CELL COUNT, UNSPECIFIED Status: Acute Assessment and Plan: Possibly due to peritonitis. Bld cx were obtained in the ER, pt was also given abx. Pt will need a diagnostic USS paracentesis by IR for prorper diagnosis. Will cont current abx, f/u with peritoneal and blood cx results. - Plan Plan: PPx: SCDs and Lovenox. CODE: FULL. Dispo: Admit to ICU.
[2019-03-31] MEDS ORDERED: Sodium Bicarb 50 MEQ/50 ML VIAL ONE (16:29)
[2019-03-31] MEDS ORDERED: Sodium Bicarbonate 50 MEQ in Sodium Chloride 0.9% 1,000 ML IV SCH (17:00)
[2019-03-31] MEDS ORDERED: Sodium Bicarbonate 150 MEQ in Dextrose 5% in Water 1,000 ML IV SCH (17:00)
[2019-03-31] MEDS ORDERED: Albumin 25% 25 GM/100 ML BOT IVPB SCH (17:00)
[2019-03-31] MEDS ORDERED: Nystatin Cream 15 GM TUBE TOP SCH (17:00)
--- NOTE | 2019-03-31 17:22 | CON ---
DATE OF CONSULTATION: SERVICE: Renal Medicine. HISTORY OF PRESENT ILLNESS: Mr. Ribeiro is a 58-year-old white male with known history of ESRD from autosomal-dominant polycystic kidney disease, currently on peritoneal dialysis, and was admitted for generalized weakness and hypotension. The patient has not been feeling well for the last 1 week. He is having nausea and decreased p.o. intake. He went to the dialysis unit, and at that time, he was found to be hypotensive. His PD fluid was also noted to be cloudy. He was sent today here for further management. At the ER, he was noted to be hypotensive, was given volume repletion, which improved the blood pressure to the 90 systolic. We tried to access again the peritoneal dialysis catheter, but this was nonfunctional. He received Activase earlier, but it did not help. My plan is to overnight Activase and if the peritoneal dialysis still not functional, we may need to refer the patient to Surgery for replacement of the PD catheter. Due to the presumptive peritonitis, he is on empiric IV antibiotics. His hypotension was also noted to be improved with volume repletion. REVIEW OF SYSTEMS: Positive for generalized malaise, decreased appetite. Positive for nausea, occasional diarrhea. Mild abdominal pain. No syncopal episode. Denies any fever. No headache. No hematochezia. No melena. No hematemesis. No dysuria. No frequency. Energy level is decreased. Appetite is decreased. HOME MEDICATIONS: Include: 1. Terazosin 2 mg at bedtime. 2. Velphoro 500 mg p.o. t.i.d. with meals. 3. KCl 7.5 mL daily. 4. Omeprazole 20 mg daily. 5. Ferrous sulfate 325 mg p.o. b.i.d. 6. Sensipar 30 mg daily. 7. Carvedilol 12.5 mg p.o. b.i.d. 8. Calcium acetate 667 mg 3 tablets t.i.d. with meals. 9. Calcitriol 0.5 mcg tablet daily. 10. The patient is status post vancomycin and cefepime. PAST MEDICAL HISTORY: 1. ESRD from autosomal-dominant polycystic kidney disease, currently on CCPD - the patient has not been dialyzing himself at home for the last several days. 2. Secondary hyperparathyroidism. 3. Hypertension. 4. Chronic anemia of chronic renal disease. PAST SURGICAL HISTORY: Status post PD catheter placement. SOCIAL HISTORY: The patient is single, lives alone. One child. No history of smoking. No alcohol. Currently, not working. Education, high school. No IV drug abuse. No blood transfusion. ALLERGIES: UNKNOWN. TRAUMA: None. IMMUNIZATION: Up to date. HOSPITALIZATIONS: Please see past medical history. FAMILY HISTORY: Positive family history of ESRD. PHYSICAL EXAMINATION: VITAL SIGNS: Blood pressure 90/70, heart rate 70. GENERAL: Noted to be awake, lethargic, not in overt cardiorespiratory distress. SKIN: Adequate turgor. HEENT: Pinkish conjunctivae. Anicteric sclerae. No neck mass. No carotid bruits. No JVD. CHEST: No deformities. LUNGS: Clear breath sounds. No wheezing. No crackles. HEART: Normal sinus rhythm. No murmurs. No gallops. No rubs. ABDOMEN: Soft, nontender. No masses. Positive for PD catheter. EXTREMITIES: No edema. No deformities. LABORATORY DATA: Laboratories of March 31, 2019: Sodium ? potassium 6, chloride 94, carbon dioxide 8, BUN 208, creatinine 22.4, GFR 2 mL/minute, glucose 180, calcium 7.4, AST 66, ALT 80, and alkaline phosphatase 321. Troponin-I 0.063. Albumin is 2.6. White count 13.4, hemoglobin 10.4. PD fluid pending. ASSESSMENT AND PLAN: 1. End-stage renal disease - secondary to autosomal-dominant polycystic kidney disease. My plan is to overnight the PD catheter with Activase to see if he will be functional tomorrow a.m. The patient is refusing to consider hemodialysis. If the PD catheter does not work, we may need to convince the patient to consider hemodialysis or the hemodialysis temporarily while we place a new PD catheter on him. 2. Peritonitis, on empiric IV antibiotics. Awaiting the PD catheter to be functional, so we can get PD fluid samples for culture as well as for cell count and Gram stain. 3. Anemia, stable. Continue current management. 4. Elevated LFT with ? of dilated bile duct. He may need a CAT scan of the abdomen. Surgical consult may be needed. 5. Overall, continue supportive care. Due to the hypotension, continue normal saline at 100 mL/h. Overall prognosis remains guarded. Job ID: [id number] [facility]
[2019-03-31] MEDS: Calcium Acetate 667 MG CAP PO SCH (18:45)
[2019-03-31] MEDS: cefTRIAXone\\ROCEPHIN 1 GM in Sodium Chloride 0.9% 100 ML IVPB SCH (18:45)
[2019-03-31] MEDS: Albumin 25% 25 GM/100 ML BOT IVPB SCH ×2 (18:49→23:42)
[2019-03-31 19:11] LABS: HBSAg Index 0.34 S/CO (0-0.99); Hep B Surf Ag Non-Reactive S/CO (NonReactive)
[2019-03-31 20:03] VITALS: BMI 31.1
[2019-03-31] MEDS: Vancomycin HCl 25 MG/ML Oral PO SCH (23:42)
[2019-04-01] MEDS: Albumin 25% 25 GM/100 ML BOT IVPB SCH ×3 (05:12→17:05)
[2019-04-01] MEDS: Vancomycin HCl 25 MG/ML Oral PO SCH ×4 (05:12→23:10)
[2019-04-01 05:26] LABS: #Lymphocytes 0.1 thou/uL (1.20-3.40); #Monocytes 0.2 thou/uL (0.11-0.59); #Neutrophils 10.9 thou/uL (1.40-6.50); %Basophils 0.2 % (0.0-1.0); %Eosinophils 0.1 % (0.0-10.0); %Lymphocytes 1.1 % (21.0-51.0); %Monocytes 2.2 % (0.0-10.0); %Neutrophils 96.4 % (42.0-75.0); Hemoglobin 8.7 g/dL (14.0-18.0); Mean Corpuscular HGB CONC 32.9 g/dL (32.0-36.0); Mean Corpuscular Hemoglobin 30.5 pg (27.0-31.0); Mean Corpuscular Volume 92.6 fL (78.0-98.0); Mean Platelet Volume 9.7 fL (7.4-10.4); Platelet Count 177 thou/uL (130-400); RBC Distribution Width 12.1 % (11.5-14.5); Red Blood Cell (RBC) Count 2.84 mill/uL (4.70-6.10); White Blood Cell (WBC) Count 11.3 thou/uL (4.8-10.8)
[2019-04-01 05:40] LABS: Albumin 2.8 g/dL (3.5-5.0); Anion Gap 32 mmol/L (10-20); Calc. Creatinine Clearance 9 mL/min (70-130); Calcium 7.9 mg/dL (7.8-10.44); Carbon Dioxide 15 mmol/L (22-29); Chloride 102 mmol/L (98-107); Estimated GFR-MDRD 4; Glucose 93 mg/dL (70-105); Potassium 3.7 mmol/L (3.5-5.1); Sodium 145 mmol/L (136-145)
[2019-04-01 05:52] LABS: BUN (Urea Nitrogen) 175 mg/dL (8.4-25.7); BUN/Creatinine Ratio 13.65
[2019-04-01 05:53] LABS: Phosphorus 13.5 mg/dL (2.3-4.7)
[2019-04-01] MEDS ORDERED: Sucroferric Oxyhydroxide [Velphoro] 500 MG PO SCH (08:00)
[2019-04-01] MEDS ORDERED: Epoetin (ESRD) 20,000 UNITS/ML SC SCH (08:30)
[2019-04-01] MEDS ORDERED: Prevnar 13-Val Conj/PF 0.5 ML SYRINGE IM ONE (09:00)
[2019-04-01] MEDS ORDERED: FLU VACC QS2019-20(6MOS UP)/PF 60 MCG/0.5 ML SYRINGE IM ONE (09:00)
[2019-04-01] MEDS ORDERED: Enoxaparin Sodium 30 MG/0.3 ML SYRINGE SC SCH (09:00)
[2019-04-01] MEDS ORDERED: Glucosam/Chondr-Msm1/D3/C/Mang PO SCH (09:00)
--- NOTE | 2019-04-01 09:01 | PRG ---
DATE OF SERVICE: 04/01/2019 SUBJECTIVE: Mr. Ribeiro is a 58-year-old white male with known history of ESRD, on peritoneal dialysis, admitted for hypotension and sepsis syndrome. He has been empirically treated with ceftriaxone as well as vancomycin. Please note that he may have underlying Clostridium difficile colitis also. In addition, his PD fluid was noted to be cloudy. We were unable to access his PD fluid since the PD catheter was nonfunctional. For that reason, due to his uremic signs and symptoms, at the same time, emergent hemodialysis was done. Please note, his initial BUN was around 300. He underwent a 2-hour hemodialysis and is currently undergoing a 3-hour hemodialysis today. We will be attempting to access the PD catheter again this morning. Please note, Activase was applied overnight. We will also check the PD fluid for cell count, Gram stain and culture. PHYSICAL EXAMINATION: VITAL SIGNS: Blood pressure is 103/68, heart rate 82, respiratory rate 18, and pulse ox 100%. GENERAL: Noted to be awake, alert, comfortable, not in overt distress. SKIN: Adequate turgor. HEENT: Pale conjunctivae. Anicteric sclerae. NECK: No neck mass. No carotid bruits. No JVD. CHEST: No deformities. LUNGS: Clear breath sounds. No wheezing. No crackles. HEART: Normal sinus rhythm. No murmur. No gallops. No rubs. ABDOMEN: Globular, soft, nontender. No masses. EXTREMITIES: No edema. ABDOMEN: Positive for PD catheter. ASSESSMENT AND PLAN: 1. End-stage renal disease - undergoing hemodialysis at the present time. Removing fluid minimally due to the low blood pressure. He is undergoing 3-hour hemodialysis. Please note, he was clinically uremic yesterday, and BUN was about 300. 2. Sepsis syndrome - on empiric IV antibiotics. In addition, the patient was found to have Clostridium difficile. Clostridium difficile assay of the stool showed antigen and toxins were positive. He is currently on vancomycin 250 mg p.o. q.i.d. 3. Anemia. Restart Epogen 10,000 units subcu q.week and ferrous sulfate 325 mg b.i.d. 4. Hypotension, clinically improving. Minimal fluid with hemodialysis. If the peritoneal dialysis catheter is still nonfunctional, we will consult Surgery for peritoneal dialysis catheter placement. Job ID: [id number]
[2019-04-01] MEDS: Ondansetron PF 4 MG/2 ML Vial IVP PRN (09:02)
[2019-04-01] MEDS: Ferrous Sulfate 325 MG TAB PO SCH (09:03)
[2019-04-01] MEDS: Cinacalcet HCl 30 MG TAB PO SCH (09:03)
[2019-04-01] MEDS: Loratadine 10 MG TAB PO SCH (09:03)
[2019-04-01] MEDS: Calcitriol 0.25 MCG CAP PO SCH (09:03)
[2019-04-01] MEDS: Calcium Acetate 667 MG CAP PO SCH ×3 (09:03→17:06)
[2019-04-01] MEDS: Folic Acid/Vit B Comp W-C PO SCH (09:03)
[2019-04-01] MEDS: EPOETIN ALFA-EPBX (ESRD) 4,000 UNIT/ML VIAL SC SCH (09:55)
--- NOTE | 2019-04-01 09:55 | PDOC.HOSPP ---
- Subjective Encounter Date: 04/01/19 Encounter Time: 12:30 Subjective: Patient confused. No complaints. - Objective Vital Signs & Weight: Vital Signs (12 hours) Temp 04/01/19 04:00 98.1 F Weight Weight 217 lb 2.485 oz Most Recent Monitor Data Heart Rate from ECG 88 NIBP 108/74 NIBP BP-Mean 85 Respiration from ECG 23 SpO2 100 I&O: 03/31/19 04/01/19 04/02/19 06:59 06:59 06:59 Intake Total 1219 Output Total 150 Balance 1069 Result Diagrams: 04/01/19 04:20 04/01/19 04:20 Hospitalist ROS - Review of Systems ROS unobtainable: due to mental status - Medication Medications: Active Medications Generic Name Dose Route Start Last Admin Trade Name Freq PRN Reason Stop Dose Admin Albumin Human 25 gm 03/31/19 18:00 04/01/19 05:12 Albumin 25% IVPB 04/01/19 18:01 25 gm Q6HR JASBIR Administration Calcitriol 0.5 mcg 04/01/19 09:00 04/01/19 09:03 Rocaltrol PO 0.5 mcg DAILY JASBIR Administration Calcium Acetate 2,001 mg 03/31/19 17:00 04/01/19 09:03 Phoslo PO 2,001 mg TID-WM JASBIR Administration Cholecalciferol 2,000 units 04/01/19 09:00 04/01/19 09:03 Vitamin D3 PO 2,000 units DAILY JASBIR Administration Cinacalcet 30 mg 04/01/19 09:00 04/01/19 09:03 Sensipar PO 30 mg DAILY JASBIR Administration Enoxaparin Sodium 30 mg 04/01/19 09:00 04/01/19 09:03 Lovenox SC 30 mg 0900 JASBIR Administration Ferrous Sulfate 325 mg 04/01/19 08:00 04/01/19 09:03 Feosol PO 325 mg QAM-WM JASBIR Administration Ceftriaxone Sodium 1 gm/ 100 mls @ 200 mls/hr 03/31/19 17:00 03/31/19 18:45 Sodium Chloride IVPB 100 mls Q24HR JASBIR Administration Loratadine 10 mg 04/01/19 09:00 04/01/19 09:03 Claritin PO 10 mg DAILY JASBIR Administration Ondansetron HCl 4 mg 03/31/19 16:43 04/01/19 09:02 Zofran IVP 4 mg Q6H PRN Administration Nausea/Vomiting Vancomycin HCl 125 mg 03/31/19 23:00 04/01/19 05:12 First Vancomycin PO 125 mg 0500,1100,1700,2300 JASBIR Administration Vitamin B Complex/Vit C/Folic Acid 1 tab 04/01/19 09:00 04/01/19 09:03 Nephro-Sheryl Tablet PO 1 tab DAILY JASBIR Administration - Exam General Appearance: NAD ENT: moist mucosa Heart: RRR, no murmur, no gallops, no rubs Respiratory: CTAB, no wheezes, no rales, no ronchi Gastrointestinal: soft, normal bowel sounds Gastrointestinal - other findings: diffuse TTP Psychiatric: not oriented Hosp A/P (1) ESRD (end stage renal disease) on dialysis Code(s): N18.6 - END STAGE RENAL DISEASE; Z99.2 - DEPENDENCE ON RENAL DIALYSIS Status: Chronic (2) Hyperkalemia Code(s): E87.5 - HYPERKALEMIA Status: Resolved (3) Leucocytosis Code(s): D72.829 - ELEVATED WHITE BLOOD CELL COUNT, UNSPECIFIED Status: Acute (4) Metabolic acidosis Code(s): E87.2 - ACIDOSIS Status: Acute (5) C. difficile colitis Code(s): A04.72 - ENTEROCOLITIS D/T CLOSTRIDIUM DIFFICILE, NOT SPCF RECUR Status: Acute - Plan Patient s/p dialysis, improve potassium and metabolic acidosis On antibiotics, possible peritonitis, also with C. diff in stool so on oral vanc. Confusion likely due to infection.
[2019-04-01] MEDS: cefTRIAXone\\ROCEPHIN 1 GM in Sodium Chloride 0.9% 100 ML IVPB SCH (11:50)
[2019-04-01 13:36] LABS: RBC Count-Automated (BF) 1740 /cumm; WBC/Nucleated-Auto (BF) 19400 uL
[2019-04-01 13:44] LABS: BF Color Yellow; Body Fluid Source Peritoneal Fluid; Clarity Cloudy/Turbid (Clear); Tube # EDTA
[2019-04-01 13:49] LABS: BF Segmented Neutrophils 80 %; Cell Count Non Hematic 8 %; Eosinophils 4 %; Lymphocytes 8 %
[2019-04-01] MEDS ORDERED: Heparin 10,000 UNITS/ 10 ML VIAL ONE (13:53)
--- NOTE | 2019-04-01 14:25 | OP ---
DATE OF PROCEDURE: 03/31/2019 PREOPERATIVE DIAGNOSIS: Acute renal failure. PROCEDURE PERFORMED: Right femoral temporary dialysis catheter placement. INDICATIONS: The patient is a 58-year-old male with acute renal failure who needs urgent dialysis, asked to place temporary catheter. FINDINGS: Good backflow of venous blood, J-wire threaded easily, each of the ports aspirated, good backflow of blood in right femoral vein. DESCRIPTION OF PROCEDURE: After informed consent was obtained, the patient was placed in supine position. His groin was prepped and draped in usual fashion. Local anesthesia was infiltrated subcutaneously and deep, utilizing 1% lidocaine. An introducer needle was inserted into the right femoral vein with good backflow of venous blood, J-wire threaded easily. The skin was incised with 11 blade, and a series of dilators used over the wire to dilate the subcu. Then, the pre-flushed Trialysis catheter was inserted over the wire. Each of the ports aspirated, good backflow of venous blood, flushed with saline. The catheter was sutured in place with 3-0 nylon suture. A sterile bandage was applied. The patient tolerated the procedure well and remained in the ICU for urgent dialysis. Job ID: [id number]
[2019-04-01] MEDS: Heparin 5,000 UNITS/ML VIAL SC SCH (21:12)
[2019-04-02] MEDS: Vancomycin HCl 25 MG/ML Oral PO SCH ×4 (05:13→23:15)
--- NOTE | 2019-04-02 09:10 | PRG ---
DATE OF SERVICE: 04/02/2019 SUBJECTIVE: Mr. Ribeiro is a 58-year-old white male with ESRD and admitted for sepsis. The issue is that he may have underlying peritonitis. PD fluid was sent. It showed to be cloudy and showed on Gram-stain, gram-negative rods. His blood culture did show Klebsiella oxytoca. He is currently on IV antibiotics. His PD catheter is still nonfunctional. He is currently undergoing hemodialysis. Please note, he was also admitted to uremia due to his failure to do peritoneal dialysis. OBJECTIVE: VITAL SIGNS: Blood pressure is 118/64, heart rate 76, respiratory rate 19, and pulse ox 100%. GENERAL: Awake, alert, comfortable, not in distress. SKIN: Adequate turgor. HEENT: He has slightly pale conjunctivae. Anicteric sclerae. NECK: No neck mass. No carotid bruits. No JVD. CHEST: No deformities. LUNGS: Clear breath sounds. No wheezing. No crackles. HEART: Normal sinus rhythm. No murmur. No gallops. No rubs. ABDOMEN: Globular, soft, and nontender. No masses. EXTREMITIES: No edema. No deformities. MEDICATIONS: Medications of April 02, 2019, were reviewed. LABORATORY DATA: Laboratories of April 01, 2019; sodium was 145, potassium 3.7, chloride 102, carbon dioxide 15, BUN 175, creatinine 12, phosphorus is 13.5, and albumin 2.8. White count 11.3, hemoglobin 8.7. PD fluid was cloudy with white count of 19,400. Gram-strain showed gram-negative rods of the PD fluid. Blood cultures showed Klebsiella. ASSESSMENT AND PLAN: 1. Peritonitis, on IV antibiotics. Continue current IV antibiotic regimen. 2. End-stage renal disease, currently on hemodialysis. We will do a 3-hour hemodialysis with this patient. Fluid removal only as tolerated. 3. Hyperphosphatemia. We will start this patient on a phosphate binder, Renvela 800 mg 3 tablets t.i.d. with meals. 4. Anemia, continuing weekly Epogen. Due to the nonfunctioning PD catheter, we may need to consult Surgery for PD catheter replacement and/or placement of a cuffed hemodialysis catheter. Job ID: [id number]
[2019-04-02] MEDS: Famotidine 20 MG TAB PO SCH (09:20)
[2019-04-02] MEDS: Heparin 5,000 UNITS/ML VIAL SC SCH ×3 (09:22→20:31)
[2019-04-02] MEDS: Ondansetron PF 4 MG/2 ML Vial IVP PRN (09:22)
[2019-04-02] MEDS: Ferrous Sulfate 325 MG TAB PO SCH (09:22)
[2019-04-02] MEDS: Loratadine 10 MG TAB PO SCH (09:23)
[2019-04-02] MEDS: Calcium Acetate 667 MG CAP PO SCH ×3 (09:23→18:44)
[2019-04-02] MEDS: Cinacalcet HCl 30 MG TAB PO SCH (09:23)
[2019-04-02] MEDS: Folic Acid/Vit B Comp W-C PO SCH (09:23)
[2019-04-02] MEDS: Calcitriol 0.25 MCG CAP PO SCH (09:23)
--- NOTE | 2019-04-02 10:02 | PDOC.HOSPP ---
- Subjective Encounter Date: 04/02/19 Encounter Time: 11:50 Subjective: Patient without complaints today. Answers very few questions. Today and yesterday he is constantly grimacing and showing his teeth, but denies pain. Uncertain if this is his baseline and if he has any mental issues. - Objective Vital Signs & Weight: Vital Signs (12 hours) Temp Pulse Ox 04/02/19 08:00 100 04/02/19 07:00 98.4 F 04/02/19 04:00 98.8 F 04/02/19 00:00 98.3 F Weight Admit Weight 217 lb Weight 217 lb 2.485 oz Most Recent Monitor Data Heart Rate from ECG 80 NIBP 109/59 NIBP BP-Mean 75 Respiration from ECG 17 SpO2 100 I&O: 04/01/19 04/02/19 04/03/19 06:59 06:59 06:59 Intake Total 1219 200 Output Total 150 0 0 Balance 1069 200 0 Result Diagrams: 04/01/19 04:20 04/01/19 04:20 Hospitalist ROS - Review of Systems Constitutional: denies: fever, chills Respiratory: denies: cough, shortness of breath Cardiovascular: denies: chest pain, palpitations Gastrointestinal: denies: nausea, vomiting, abdominal pain, diarrhea, constipation - Medication Medications: Active Medications Generic Name Dose Route Start Last Admin Trade Name Hope PRN Reason Stop Dose Admin Calcitriol 0.5 mcg 04/01/19 09:00 04/02/19 09:23 Rocaltrol PO 0.5 mcg DAILY JASBIR Administration Calcium Acetate 2,001 mg 03/31/19 17:00 04/02/19 09:23 Phoslo PO 2,001 mg TID- JASBIR Administration Cholecalciferol 2,000 units 04/01/19 09:00 04/02/19 09:23 Vitamin D3 PO 2,000 units DAILY JASBIR Administration Cinacalcet 30 mg 04/01/19 09:00 04/02/19 09:23 Sensipar PO 30 mg DAILY JASBIR Administration Epoetin Tanner-epbx 7,500 unit 04/01/19 09:00 04/01/19 09:55 Retacrit SC 7,500 unit Q7D JASBIR Administration Famotidine 20 mg 04/02/19 09:00 04/02/19 09:20 Pepcid PO 20 mg DAILY JASBIR Administration Ferrous Sulfate 325 mg 04/01/19 08:00 04/02/19 09:22 Feosol PO 325 mg QAM-WM JASBIR Administration Heparin Sodium (Porcine) 5,000 units 04/01/19 21:00 04/02/19 09:22 Heparin SC 5,000 units TID JASBIR Administration Ceftriaxone Sodium 1 gm/ 100 mls @ 200 mls/hr 03/31/19 17:00 04/01/19 11:50 Sodium Chloride IVPB 100 mls Q24HR JASBIR Administration Loratadine 10 mg 04/01/19 09:00 04/02/19 09:23 Claritin PO 10 mg DAILY JASBIR Administration Ondansetron HCl 4 mg 03/31/19 16:43 04/02/19 09:22 Zofran IVP 4 mg Q6H PRN Administration Nausea/Vomiting Vancomycin HCl 125 mg 03/31/19 23:00 04/02/19 05:13 First Vancomycin PO 125 mg 0500,1100,1700,2300 JASBIR Administration Vitamin B Complex/Vit C/Folic Acid 1 tab 04/01/19 09:00 04/02/19 09:23 Nephro-Sheryl Tablet PO 1 tab DAILY JASBIR Administration - Exam General Appearance: NAD, awake alert Heart: RRR, no murmur, no gallops, no rubs Respiratory: CTAB, no wheezes, no rales, no ronchi Gastrointestinal: soft, normal bowel sounds Gastrointestinal - other findings: mild distension, denies pain to palpation Psychiatric: normal affect Psychiatric - other findings: odd behavior, uncertain baseline Hosp A/P (1) ESRD (end stage renal disease) on dialysis Code(s): N18.6 - END STAGE RENAL DISEASE; Z99.2 - DEPENDENCE ON RENAL DIALYSIS Status: Chronic (2) Hyperkalemia Code(s): E87.5 - HYPERKALEMIA Status: Resolved (3) Leucocytosis Code(s): D72.829 - ELEVATED WHITE BLOOD CELL COUNT, UNSPECIFIED Status: Acute (4) Metabolic acidosis Code(s): E87.2 - ACIDOSIS Status: Acute (5) C. difficile colitis Code(s): A04.72 - ENTEROCOLITIS D/T CLOSTRIDIUM DIFFICILE, NOT SPCF RECUR Status: Acute (6) Bacteremia Code(s): R78.81 - BACTEREMIA Status: Acute - Plan Patient s/p dialysis, improve potassium and metabolic acidosis On antibiotics, peritonitis with gram - rods, Klebsiella growing out of 2/2 blood cultures, also with C. diff in stool so on oral vanc.
[2019-04-02] MEDS: Sevelamer Carbonate 800 MG TAB PO SCH ×2 (12:04→18:44)
--- NOTE | 2019-04-02 14:43 | CON ---
DATE OF CONSULTATION: HISTORY OF PRESENT ILLNESS: Malcolm Ribeiro is a 58-year-old gentleman, who was brought into the hospital because he was extremely weak, unable to get up. 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 He has autosomal dominant polycystic kidney disease, was on peritoneal dialysis. He has ascites. It looks like he is infected with what looks like Klebsiella. He now has an access in his groin being hemodialyzed. He has been falling at home. He was hypertensive. Today, he denies any coughing or wheezing or chest pain. PAST MEDICAL HISTORY: He has extensive medical history, which is outlined, that includes past medical history of hypertension, peritonitis, renal failure, polycystic kidney disease. HABITS: Tobacco, quit smoking years ago, 25. No alcohol abuse. REVIEW OF SYSTEMS: Severe deconditioning. Otherwise, unremarkable. HOME MEDICINES: 1. Hytrin 2 mg. 2. Omeprazole 20. 3. Vitamins. 4. Coreg 12.5. 5. Calcitriol. He is now on vancomycin and Rocephin. ALLERGIES: NO ALLERGIES. PHYSICAL EXAMINATION: VITAL SIGNS: Blood pressure 132/91. He is being dialyzed. Temperature 98, pulse 71, sats 95%, respirations 18. GENERAL: Awake, alert, responsive, weak. CHEST: No wheezing or crackles. CARDIAC: Normal S1 and S2. No gallops. ABDOMEN: Distended, soft. EXTREMITIES: No edema. NEUROLOGIC: Encephalopathic. LABORATORY DATA: His peritoneal fluid showed a white count of 19,000, 80 segs, gram-negative rods, apparently Klebsiella and Enterobacter. Blood cultures showing Klebsiella. Final ID subsequently pending. Otherwise, lab shows white count of 13,000, hemoglobin 8, hematocrit 26, platelet count 177. Chemistry is consistent with his renal failure. Creatinine 12, BUN 175, phosphorus 13.5. IMPRESSION: Encephalopathy, deconditioning, peritonitis, chronic renal failure, polycystic kidney disease. Continue antibiotics, adjust once we get ID back. PT is being ordered, supportive care. He is stable enough to be transferred to a nonmonitored bed. Consultation note, 70 minutes, 50% direct patient care. Job ID: [id number]
[2019-04-02] MEDS: cefTRIAXone\\ROCEPHIN 1 GM in Sodium Chloride 0.9% 100 ML IVPB SCH (18:43)
[2019-04-03] MEDS: Vancomycin HCl 25 MG/ML Oral PO SCH ×4 (05:17→22:59)
[2019-04-03 05:30] LABS: #Eosinphils 0.1 thou/uL (0.0-0.7); #Lymphocytes 0.4 thou/uL (1.20-3.40); #Monocytes 0.5 thou/uL (0.11-0.59); #Neutrophils 9.5 thou/uL (1.40-6.50); %Basophils 0.1 % (0.0-1.0); %Lymphocytes 3.8 % (21.0-51.0); %Monocytes 4.6 % (0.0-10.0); %Neutrophils 90.5 % (42.0-75.0); Hemoglobin 8.8 g/dL (14.0-18.0); Mean Corpuscular HGB CONC 31.7 g/dL (32.0-36.0); Mean Corpuscular Hemoglobin 30.2 pg (27.0-31.0); Mean Corpuscular Volume 95.5 fL (78.0-98.0); Mean Platelet Volume 9.4 fL (7.4-10.4); Platelet Count 140 thou/uL (130-400); White Blood Cell (WBC) Count 10.5 thou/uL (4.8-10.8)
[2019-04-03 05:49] LABS: Anion Gap 15 mmol/L (10-20); BUN (Urea Nitrogen) 58 mg/dL (8.4-25.7); Calc. Creatinine Clearance 18 mL/min (70-130); Calcium 8.5 mg/dL (7.8-10.44); Carbon Dioxide 27 mmol/L (22-29); Chloride 100 mmol/L (98-107); Estimated GFR-MDRD 10; Glucose 168 mg/dL (70-105); Potassium 3.6 mmol/L (3.5-5.1); Sodium 138 mmol/L (136-145)
[2019-04-03] MEDS: Calcitriol 0.25 MCG CAP PO SCH (08:42)
[2019-04-03] MEDS: Sevelamer Carbonate 800 MG TAB PO SCH ×3 (08:42→17:36)
[2019-04-03] MEDS: Folic Acid/Vit B Comp W-C PO SCH (08:42)
[2019-04-03] MEDS: Cinacalcet HCl 30 MG TAB PO SCH (08:42)
[2019-04-03] MEDS: Calcium Acetate 667 MG CAP PO SCH ×3 (08:43→17:36)
[2019-04-03] MEDS: Loratadine 10 MG TAB PO SCH (08:43)
[2019-04-03] MEDS: Ferrous Sulfate 325 MG TAB PO SCH (08:43)
[2019-04-03] MEDS: Famotidine 20 MG TAB PO SCH (08:43)
[2019-04-03] MEDS: Heparin 5,000 UNITS/ML VIAL SC SCH ×3 (08:43→20:22)
[2019-04-03] MEDS: Ondansetron PF 4 MG/2 ML Vial IVP PRN (09:01)
[2019-04-03] MEDS: Acetaminophen 325 MG TAB PO PRN (09:01)
--- NOTE | 2019-04-03 09:21 | PDOC.HOSPP ---
- Subjective Encounter Date: 04/03/19 Encounter Time: 11:40 Subjective: Patient more awake and talkative today. Family in the room. No longer grimacing his teeth at me. - Objective Vital Signs & Weight: Vital Signs (12 hours) Temp Pulse Resp BP Pulse Ox 04/03/19 07:48 97.9 F 96 16 98/64 96 04/03/19 03:17 98.1 F 79 18 105/61 97 04/02/19 23:25 98 F 78 18 121/70 98 Weight Admit Weight 217 lb Weight 217 lb 2.485 oz Most Recent Monitor Data Heart Rate from ECG 75 NIBP 126/77 NIBP BP-Mean 93 Respiration from ECG 19 SpO2 100 I&O: 04/02/19 04/03/19 04/04/19 06:59 06:59 06:59 Intake Total 200 1000 Output Total 0 0 Balance 200 1000 Result Diagrams: 04/03/19 05:20 04/03/19 03:30 Hospitalist ROS - Review of Systems Constitutional: denies: fever, chills Respiratory: denies: cough, shortness of breath Cardiovascular: denies: chest pain, orthopnea Gastrointestinal: denies: nausea, vomiting, abdominal pain - Medication Medications: Active Medications Generic Name Dose Route Start Last Admin Trade Name Freq PRN Reason Stop Dose Admin Acetaminophen 650 mg 03/31/19 16:43 04/03/19 09:01 Tylenol PO 650 mg Q4H PRN Administration Headache/Fever/Mild Pain (1-3) Calcitriol 0.5 mcg 04/01/19 09:00 04/03/19 08:42 Rocaltrol PO 0.5 mcg DAILY JASBIR Administration Calcium Acetate 2,001 mg 03/31/19 17:00 04/03/19 08:43 Phoslo PO 2,001 mg TID- JASBIR Administration Cholecalciferol 2,000 units 04/01/19 09:00 04/03/19 08:42 Vitamin D3 PO 2,000 units DAILY JASBIR Administration Cinacalcet 30 mg 04/01/19 09:00 04/03/19 08:42 Sensipar PO 30 mg DAILY JASBIR Administration Epoetin Tanner-epbx 7,500 unit 04/01/19 09:00 04/01/19 09:55 Retacrit SC 7,500 unit Q7D JASBIR Administration Famotidine 20 mg 04/02/19 09:00 04/03/19 08:43 Pepcid PO 20 mg DAILY JASBIR Administration Ferrous Sulfate 325 mg 04/01/19 08:00 04/03/19 08:43 Feosol PO 325 mg QAM-WM JASBIR Administration Heparin Sodium (Porcine) 5,000 units 04/01/19 21:00 04/03/19 08:43 Heparin SC 5,000 units TID JASBIR Administration Ceftriaxone Sodium 1 gm/ 100 mls @ 200 mls/hr 03/31/19 17:00 04/02/19 18:43 Sodium Chloride IVPB 100 mls Q24HR JASBIR Administration Loratadine 10 mg 04/01/19 09:00 04/03/19 08:43 Claritin PO 10 mg DAILY JASBIR Administration Ondansetron HCl 4 mg 03/31/19 16:43 04/03/19 09:01 Zofran IVP 4 mg Q6H PRN Administration Nausea/Vomiting Sevelamer Carbonate 2,400 mg 04/02/19 12:00 04/03/19 08:42 Renvela PO 2,400 mg TID-WM JASBIR Administration Vancomycin HCl 125 mg 03/31/19 23:00 04/03/19 05:17 First Vancomycin PO 125 mg 0500,1100,1700,2300 JASBIR Administration Vitamin B Complex/Vit C/Folic Acid 1 tab 04/01/19 09:00 04/03/19 08:42 Nephro-Sheryl Tablet PO 1 tab DAILY JASBIR Administration - Exam General Appearance: NAD, awake alert ENT: moist mucosa Heart: RRR, no murmur, no gallops, no rubs Respiratory: CTAB, no wheezes, no rales, no ronchi Gastrointestinal: soft, non-tender, non-distended, normal bowel sounds Psychiatric: normal affect, normal behavior, A&O x 3 Hosp A/P (1) Bacteremia Code(s): R78.81 - BACTEREMIA Status: Acute (2) Peritonitis Code(s): K65.9 - PERITONITIS, UNSPECIFIED Status: Acute (3) ESRD (end stage renal disease) on dialysis Code(s): N18.6 - END STAGE RENAL DISEASE; Z99.2 - DEPENDENCE ON RENAL DIALYSIS Status: Chronic (4) Hyperkalemia Code(s): E87.5 - HYPERKALEMIA Status: Resolved (5) Metabolic acidosis Code(s): E87.2 - ACIDOSIS Status: Acute (6) C. difficile colitis Code(s): A04.72 - ENTEROCOLITIS D/T CLOSTRIDIUM DIFFICILE, NOT SPCF RECUR Status: Acute - Plan Patient s/p dialysis, improved potassium and metabolic acidosis Patient with 2/2 blood cultures positive for pansensitive Klebsiella on Rocephin since 03/31/2019 also with C. diff in stool so on oral vanc. Patient will need long term care phlebotomist Dialysis access
--- NOTE | 2019-04-03 09:47 | PRG ---
DATE OF SERVICE: 04/03/2019 SUBJECTIVE: Mr. Ribeiro is a 58-year-old white male with ESRD on peritoneal dialysis, who was admitted for his hypotension and sepsis syndrome. He was found to have a peritonitis. He is currently on empiric IV antibiotics. Blood cultures showed gram-negative rods-Klebsiella. In addition, PD fluid also grew gram-negative rods. Of note, the PD catheter is essentially nonfunctional. For that reason, a surgical consult has been done and possible exploratory laparotomy will be done tomorrow for possible repair of this PD catheter and/or replacement. He has a temporary femoral dialysis catheter. He was also noted to be uremic when he came in and he underwent emergent hemodialysis. This morning, he is feeling a little better. OBJECTIVE: VITAL SIGNS: Blood pressure is 98/64, heart rate 96, respiratory rate 16, temperature 97.9, pulse ox 96%. GENERAL: Noted to be awake, alert, comfortable, not in overt distress. SKIN: Adequate turgor. HEENT: Slightly pale conjunctivae. Anicteric sclerae. NECK: No neck mass. No carotid bruits. No JVD. CHEST: No deformities. LUNGS: Clear breath sounds. HEART: Normal sinus rhythm. No murmur. No gallops. No rubs. ABDOMEN: Globular, soft, nontender. No masses. EXTREMITIES: No edema. No deformities. Positive for PD catheter. MEDICATIONS: Medications of April 03, 2019 reviewed. LABORATORY DATA: Laboratories of April 03, 2019; white count 10.5, hemoglobin 8.8. Sodium 138, potassium 3.6, chloride 100, carbon dioxide 27, BUN 58, creatinine 5.92, glucose 168, calcium 8.5, albumin 2.8. ASSESSMENT AND PLAN: 1. End-stage renal disease. Continuing current hemodialysis regimen. The patient has been rescheduled back for hemodialysis tomorrow. The patient will also have a repair of his PD catheter done by Dr. Regan tomorrow morning. 2. Anemia, continuing current Epogen regimen. Continue iron supplementation. 3. Hyperphosphatemia-on Renvela. 4. Bacteremia/peritonitis-on IV ceftriaxone. 5. Agree with current management. Job ID: [id number]
--- NOTE | 2019-04-03 09:53 | PRG ---
DATE OF SERVICE: 04/03/2019 SUBJECTIVE: This morning, he is better. OBJECTIVE: VITAL SIGNS: Temperature 97, pulse 96, respirations 16, sats 100% on room air, and blood pressure 98/64. CHEST: No wheezing or crackles. CARDIAC: Normal S1 and S2. No gallops. ABDOMEN: No masses. LABORATORY DATA: His peritoneal fluid is growing Klebsiella ASSESSMENT AND PLAN: 1. Abdominal sepsis. 2. Klebsiella. 3. Chronic renal failure. 4. Peritonitis. 5. Severe deconditioning. He is on ceftriaxone, which is sensitive to the present coverage. Pulmonary/Critical Care will follow at a distance. Otherwise, continue supportive care, PT, ongoing dialysis. Job ID: [id number]
--- NOTE | 2019-04-03 15:14 | PDOC.GSCN ---
Surgery Consult: [facility] - Consult details Date: 04/03/19 Time: 15:10 Reason for consult: other (Nonfunctional PD catheter) History of present illness: 04/03/19 15:11 Patient with end-stage renal failure due to polycystic kidney disease. He has been on peritoneal dialysis for 6 years. He has had 3 episodes of peritonitis but has not had to have the catheter removed. He underwent surgical revision in October of last year and states that since then the catheter has been working although he sometimes has to undergo some maneuvers to get it to drain properly. About a week before his admission he started having problems getting the catheter to drain, and the dialysate fluid returned cloudy. He got sicker and sicker over the following week and finally came to the emergency room at which time he was floridly septic and required admission to ICU and emergency dialysis. He is feeling much better now and not having any abdominal pain except for just an occasional pain at the lower belt line. His dialysis catheter however has not been working since he came in despite administering Cathflo several times. He has had multiple blood cultures positive for Klebsiella and his peritoneal dialysate is also positive for Klebsiella. In addition he developed diarrhea and his stool is positive for Clostridium difficile. He is currently on appropriate antibiotics for both of these infections. He is still undergoing dialysis via a femoral catheter. His restorative care technician has requested revision or replacement of the peritoneal dialysis catheter and tunneled hemodialysis catheter placement. The patient has been very resistant to transferring to hemodialysis although this has been suggested to him in the past. Surgery Consult: ROS - Review of Systems All systems: 10 systems reviewed and no additional complaints unless stated below. Surgery Consult: [facility] Source: patient, other (Chart review) Past Medical History: End-stage renal failure due to polycystic kidney disease, hypertension, hyperparathyroidism, BPH Past Surgical History: Peritoneal dialysis catheter placement at [facility] 6 years ago, laparoscopic revision of the peritoneal dialysis catheter in October 2018 - Past Social History Smoking Status: Former smoker Alcohol Use: rarely Living Situation: independent Surgery Consult: Exam - Vital signs Vital signs: Vital Signs - Most Recent Temp Pulse Resp BP Pulse Ox 97.8 F 96 20 108/72 97 04/03/19 11:16 04/03/19 11:16 04/03/19 11:16 04/03/19 11:16 04/03/19 11:16 - Physical Exam General: no distress Eye: normal ocular movement, PERRL ENT: no congestion Neck: no lymphadectomy, no masses, trachea midline Respiratory: clear to auscultation, normal expansion, normal respiratory effort Abdomen: soft (Nondistended. PD catheter site is clean. Very minimal suprapubic tenderness to palpation, otherwise nontender with no palpable masses or hernias) Hernia: none Integumentary: no abnormal pigmentation Neurologic: normal coordination, normal sensation Musculoskeletal: normal posture Psychiatric: memory intact, oriented to time, oriented to person, oriented to place, speech is normal Surgery Consult: Meds - Medications MAR Reviewed: Yes Medications: Current Medications Acetaminophen (Tylenol) 650 mg PO Q4H PRN PRN Reason: Headache/Fever/Mild Pain (1-3) Last Admin: 04/03/19 09:01 Dose: 650 mg Calcitriol (Rocaltrol) 0.5 mcg PO DAILY [facility] Last Admin: 04/03/19 08:42 Dose: 0.5 mcg Calcium Acetate (Phoslo) 2,001 mg PO TID-[facility] Last Admin: 04/03/19 12:26 Dose: 2,001 mg Cholecalciferol (Vitamin D3) 2,000 units PO DAILY [facility] Last Admin: 04/03/19 08:42 Dose: 2,000 units Cinacalcet (Sensipar) 30 mg PO DAILY [facility] Last Admin: 04/03/19 08:42 Dose: 30 mg Epoetin Tanner-epbx (Retacrit) 7,500 unit SC Q7D [facility] Last Admin: 04/01/19 09:55 Dose: 7,500 unit Famotidine (Pepcid) 20 mg PO DAILY [facility] Last Admin: 04/03/19 08:43 Dose: 20 mg Ferrous Sulfate (Feosol) 325 mg PO QAM-[facility] Last Admin: 04/03/19 08:43 Dose: 325 mg Heparin Sodium (Porcine) (Heparin) 5,000 units SC TID [facility] Last Admin: 04/03/19 08:43 Dose: 5,000 units Ceftriaxone Sodium 1 gm/ (Sodium Chloride) 100 mls @ 200 mls/hr IVPB Q24HR [facility] Last Admin: 04/02/19 18:43 Dose: 100 mls Loratadine (Claritin) 10 mg PO DAILY [facility] Last Admin: 04/03/19 08:43 Dose: 10 mg Ondansetron HCl (Zofran) 4 mg IVP Q6H PRN PRN Reason: Nausea/Vomiting Last Admin: 04/03/19 09:01 Dose: 4 mg Sucroferric Oxyhydroxide [ Velphoro] 500 Mg 0 each PO TID-[facility] Sevelamer Carbonate (Renvela) 2,400 mg PO TID-[facility] Last Admin: 04/03/19 12:26 Dose: 2,400 mg Sodium Chloride (Flush - Normal Saline) 10 ml IVF PRN PRN PRN Reason: Saline Flush Vancomycin HCl (First Vancomycin) 125 mg PO 0500,1100,1700,2300 [facility] Last Admin: 04/03/19 12:27 Dose: 125 mg Vitamin B Complex/Vit C/Folic Acid (Nephro-Sheryl Tablet) 1 tab PO DAILY [facility] Last Admin: 04/03/19 08:42 Dose: 1 tab - Allergies Allergies/Adverse Reactions: Allergies Allergy/AdvReac Type Severity Reaction Status Date / Time No Known Allergies Allergy Verified 11/18/18 23:20 Surgery Consult: Results - Labs Result Diagrams: 04/03/19 05:20 04/03/19 03:30 Lab results: Laboratory Results WBC 10.5 thou/uL (4.8-10.8) 04/03/19 05:20 RBC 2.90 mill/uL (4.70-6.10) L 04/03/19 05:20 Hgb 8.8 g/dL (14.0-18.0) L 04/03/19 05:20 Hct 27.6 % (42.0-52.0) L 04/03/19 05:20 MCV 95.5 fL (78.0-98.0) 04/03/19 05:20 MCH 30.2 pg (27.0-31.0) 04/03/19 05:20 MCHC 31.7 g/dL (32.0-36.0) L 04/03/19 05:20 RDW 12.0 % (11.5-14.5) 04/03/19 05:20 Plt Count 140 thou/uL (130-400) 04/03/19 05:20 MPV 9.4 fL (7.4-10.4) 04/03/19 05:20 Neutrophils % 90.5 % (42.0-75.0) H 04/03/19 05:20 Neutrophils % (Manual) 69 % (42-75) 03/31/19 13:12 Band Neuts % (Manual) 29 % (5-11) H 03/31/19 13:12 Lymphocytes % 3.8 % (21.0-51.0) L 04/03/19 05:20 Lymphocytes % (Manual) 1 % (21-51) L 03/31/19 13:12 Monocytes % 4.6 % (0.0-10.0) 04/03/19 05:20 Monocytes % (Manual) 1 % (0-10) 03/31/19 13:12 Eosinophils % 1.0 % (0.0-10.0) 04/03/19 05:20 Basophils % 0.1 % (0.0-1.0) 04/03/19 05:20 Neutrophils # 9.5 thou/uL (1.40-6.50) H 04/03/19 05:20 Lymphocytes # 0.4 thou/uL (1.20-3.40) L 04/03/19 05:20 Monocytes # 0.5 thou/uL (0.11-0.59) 04/03/19 05:20 Eosinophils # 0.1 thou/uL (0.0-0.7) 04/03/19 05:20 Basophils # 0.0 thou/uL (0.0-0.2) 04/03/19 05:20 Plt Morphology Comment Appears Adequate 03/31/19 13:12 Polychromasia SLIGHT = 2-3 cells (100X) (0-2/hpf) 03/31/19 13:12 Sodium 138 mmol/L (136-145) 04/03/19 03:30 Potassium 3.6 mmol/L (3.5-5.1) 04/03/19 03:30 Chloride 100 mmol/L (98-107) 04/03/19 03:30 Carbon Dioxide 27 mmol/L (22-29) 04/03/19 03:30 Anion Gap 15 mmol/L (10-20) 04/03/19 03:30 BUN 58 mg/dL (8.4-25.7) H 04/03/19 03:30 Creatinine 5.92 mg/dL (0.7-1.3) H 04/03/19 03:30 Estimated GFR (MDRD) 10 04/03/19 03:30 BUN/Creatinine Ratio 13.65 04/01/19 04:20 Glucose 168 mg/dL (70-105) H 04/03/19 03:30 Lactic Acid 1.3 mmol/L (0.5-2.2) 03/31/19 13:27 Calcium 8.5 mg/dL (7.8-10.44) 04/03/19 03:30 Phosphorus 13.5 mg/dL (2.3-4.7) H* 04/01/19 04:20 Magnesium 3.6 mg/dL (1.6-2.6) H 03/31/19 13:12 Total Bilirubin 1.2 mg/dL (0.2-1.2) 03/31/19 13:12 AST 66 U/L (5-34) H 03/31/19 13:12 ALT 80 U/L (8-55) H 03/31/19 13:12 Alkaline Phosphatase 321 U/L (40-110) H 03/31/19 13:12 Creatine Kinase 210 U/L (30-200) H 03/31/19 13:12 CK-MB (CK-2) 12.5 ng/mL (0-6.6) H* 03/31/19 13:12 Troponin I 0.063 ng/mL (< 0.028) H 03/31/19 13:12 Serum Total Protein 7.0 g/dL (6.0-8.3) 03/31/19 13:12 Albumin 2.8 g/dL (3.5-5.0) L 04/01/19 04:20 Globulin 4.4 g/dL (2.4-3.5) H 03/31/19 13:12 Albumin/Globulin Ratio 0.6 g/dL (1.2-2.2) L 03/31/19 13:12 Lipase 536 U/L (8-78) H 03/31/19 13:12 TSH 3rd Generation 0.9666 uIU/mL (0.35-4.94) 03/31/19 13:08 Fluid Source Peritoneal Fluid 04/01/19 08:48 Fluid Tube Number EDTA 04/01/19 08:48 Fluid Color Yellow 04/01/19 08:48 Fluid Clarity Cloudy/Turbid (Clear) H 04/01/19 08:48 Fluid WBC 34671 uL 04/01/19 08:48 Fluid RBC 1740 /cumm 04/01/19 08:48 Fluid Seg Neutrophil % 80 % 04/01/19 08:48 Fluid Lymphocytes % 8 % 04/01/19 08:48 Fluid Eosinophils % 4 % 04/01/19 08:48 Fluid Diff Path Review 04/01/19 08:48 Non-Hematological % 8 % 04/01/19 08:48 Fluid Comment Note: 04/01/19 08:48 Hep Bs Antigen Non-Reactive S/CO (NonReactive) 03/31/19 18:04 Surgery Consult: A/P - Problem (1) ESRD (end stage renal disease) on dialysis Current Visit: No Code(s): N18.6 - END STAGE RENAL DISEASE; Z99.2 - DEPENDENCE ON RENAL DIALYSIS Status: Chronic (2) Peritoneal dialysis catheter dysfunction Current Visit: Yes Code(s): T85.611A - BREAKDOWN OF INTRAPERITONEAL DIALYSIS CATHETER, INIT Status: Acute (3) Acute peritonitis Current Visit: No Code(s): K65.0 - GENERALIZED (ACUTE) PERITONITIS Status: Acute - Plan Plan: Patient with end-stage renal failure and poorly functioning peritoneal dialysis catheter. He reports that it has not been draining properly. At the time of his last episode of peritonitis this was due to adhesions around the catheter. Since he has had 3 episodes of peritonitis and severe bacteremia and sepsis with his latest episode, I recommended that he consider converting to hemodialysis, but the patient is very resistant to this idea. He wants to keep his peritoneal dialysis catheter and does not want to continue on hemodialysis. I explained that if I'm unable to create enough space intra-abdominally to operate safely, I will need to remove his peritoneal dialysis catheter, and he will need to continue on hemodialysis. The patient does understand this but wants to keep his dialysis catheter if at all possible. Therefore if I'm able to successfully insufflate and create adequate pneumoperitoneum we will attempt to lyse adhesions and washout his abdomen leaving the catheter in place. He understands that he runs the risk of persistent peritonitis and recurrent bacteremia and sepsis with this approach. He understands that bacteremia and sepsis can be fatal. He does agree to have a tunneled hemodialysis catheter placed as a backup plan in case he is unable to successfully use his peritoneal dialysis catheter, and he understands that if washout and lysis of adhesions is unsuccessful in getting the peritoneal catheter to function he will need to return to the operating room for removal of the peritoneal dialysis catheter. He understands that my recommendation is removal of the catheter but he does not want to proceed with that plan of action. Inherent risks of laparoscopic revision of the peritoneal dialysis catheter were discussed. These include but are not limited to bleeding, infection, risks of anesthesia, damage to bowel or blood vessels or other intra-abdominal structures, failure of the catheter to function, persistent or recurrent peritonitis and sepsis, and need further procedures. Inherent risks of tunneled hemodialysis catheter placement were also discussed. These include but are not limited to bleeding, infection, risks of anesthesia, hemothorax, pneumothorax, and need further procedures. He understands and accepts these risks and wishes to proceed.
[2019-04-03] MEDS: cefTRIAXone\\ROCEPHIN 1 GM in Sodium Chloride 0.9% 100 ML IVPB SCH (17:35)
[2019-04-04] MEDS: Vancomycin HCl 25 MG/ML Oral PO SCH ×3 (05:00→17:59)
[2019-04-04 06:02] LABS: #Eosinphils 0.2 thou/uL (0.0-0.7); #Lymphocytes 1.1 thou/uL (1.20-3.40); #Monocytes 0.7 thou/uL (0.11-0.59); #Neutrophils 12.7 thou/uL (1.40-6.50); %Basophils 0.3 % (0.0-1.0); %Eosinophils 1.2 % (0.0-10.0); %Lymphocytes 7.1 % (21.0-51.0); %Neutrophils 86.4 % (42.0-75.0); Hemoglobin 9.8 g/dL (14.0-18.0); Mean Corpuscular HGB CONC 33.2 g/dL (32.0-36.0); Mean Corpuscular Hemoglobin 31.9 pg (27.0-31.0); Mean Corpuscular Volume 96.3 fL (78.0-98.0); Mean Platelet Volume 9.9 fL (7.4-10.4); Platelet Count 192 thou/uL (130-400); RBC Distribution Width 11.9 % (11.5-14.5); Red Blood Cell (RBC) Count 3.07 mill/uL (4.70-6.10); White Blood Cell (WBC) Count 14.7 thou/uL (4.8-10.8)
[2019-04-04 06:24] LABS: Anion Gap 18 mmol/L (10-20); BUN (Urea Nitrogen) 70 mg/dL (8.4-25.7); Calc. Creatinine Clearance 14 mL/min (70-130); Calcium 8.7 mg/dL (7.8-10.44); Carbon Dioxide 25 mmol/L (22-29); Chloride 98 mmol/L (98-107); Estimated GFR-MDRD 7; Glucose 109 mg/dL (70-105); Potassium 3.9 mmol/L (3.5-5.1); Sodium 137 mmol/L (136-145)
[2019-04-04] MEDS: Loratadine 10 MG TAB PO SCH (08:35)
[2019-04-04] MEDS: Sevelamer Carbonate 800 MG TAB PO SCH ×3 (08:35→17:35)
[2019-04-04] MEDS: Famotidine 20 MG TAB PO SCH (08:35)
[2019-04-04] MEDS: Calcium Acetate 667 MG CAP PO SCH ×3 (08:35→17:35)
[2019-04-04] MEDS: Ferrous Sulfate 325 MG TAB PO SCH (08:36)
[2019-04-04] MEDS: Calcitriol 0.25 MCG CAP PO SCH (08:36)
[2019-04-04] MEDS: Folic Acid/Vit B Comp W-C PO SCH (08:36)
[2019-04-04] MEDS: Heparin 5,000 UNITS/ML VIAL SC SCH ×3 (08:37→21:52)
[2019-04-04] MEDS: Cinacalcet HCl 30 MG TAB PO SCH (08:37)
[2019-04-04] MEDS ORDERED: PHENYLEPHRINE-NS 100 MCG/ML 10 ML SYRINGE ONE ×2 (10:10→16:35)
[2019-04-04] MEDS ORDERED: Esmolol 100 MG/10 ML VIAL ONE (10:10)
[2019-04-04] MEDS ORDERED: Ondansetron PF 4 MG/2 ML Vial ONE (10:10)
[2019-04-04] MEDS ORDERED: PROPOFOL 200 MG/20 ML VIAL ONE (10:10)
[2019-04-04] MEDS ORDERED: Glycopyrrolate 0.2 MG/ML 5 ML SYRINGE ONE (10:10)
[2019-04-04] MEDS ORDERED: Lidocaine 1% PF 5 ML VIAL ONE (10:10)
[2019-04-04] MEDS ORDERED: ePHEDrine/0.9% NaCl/PF SYRINGE 50 mg/10 ml ONE (10:10)
[2019-04-04] MEDS ORDERED: Rocuronium Bromide 10 MG/ML (10ML VIAL) ONE (10:10)
--- NOTE | 2019-04-04 10:12 | PRG ---
DATE OF SERVICE: 04/04/2019 SUBJECTIVE: Mr. Ribeiro is a 58-year-old white male with ESRD, admitted for sepsis. He was also found to be clinically uremic, and due to the peritoneal dialysis catheter being nonfunctional, he had a femoral dialysis catheter placed and was hemodialyzed. He also was noted to be bacteremic. Currently on IV antibiotics. We have consulted surgery for possible change in the PD catheter. In addition, ID consult has been done. This morning, he still feels tired. OBJECTIVE: VITAL SIGNS: Blood pressure 93/59 with a heart rate of 90, respiratory rate 16, temperature 97.9, pulse ox 97%. GENERAL: The patient is awake, but lethargic, not in overt distress. SKIN: Adequate turgor. HEENT: Pinkish conjunctivae. Anicteric sclerae. NECK: No neck mass. No carotid bruits. No JVD. CHEST: No deformities. LUNGS: Clear breath sounds. HEART: Normal sinus rhythm. No murmur. No gallops. No rubs. ABDOMEN: Globular, soft, nontender. No masses. EXTREMITIES: No edema. Positive for PD catheter. MEDICATIONS: Medications of April 04, 2019, reviewed. LABORATORY DATA: Laboratories of April 04, 2019, white count 14.7. Sodium is 137, potassium 3.9, chloride 98, carbon dioxide 25, BUN 70, creatinine 8.02, glucose 119, calcium 8.7. ASSESSMENT AND PLAN: 1. End-stage renal disease, stable. We will continue current hemodialysis regimen on Sunday, Sunday, and Sunday. We will attempt to repair the PD catheter. The patient is scheduled for surgery with Dr. Regan. 2. Anemia, continuing weekly Epogen. 3. Bacteremia/peritonitis, on IV antibiotics. ID consult has been done with Dr. Avila. Agree with current management. Job ID: [id number]
[2019-04-04] MEDS ORDERED: Heparin 10,000 UNITS/ 10 ML VIAL ONE (10:26)
[2019-04-04] MEDS ORDERED: Meropenem 500 MG in Sodium Chloride 0.9% 100 ML IVPB SCH (14:00)
[2019-04-04] MEDS ORDERED: Bupivacaine 0.25% HCL 30 ML VIAL ONE (14:30)
[2019-04-04] MEDS ORDERED: Heparin 10,000 UNITS/1 ML VIAL ONE ×2 (14:30→17:49)
[2019-04-04] MEDS ORDERED: Lidocaine 2% PF 5 ML VIAL ONE (14:30)
[2019-04-04] MEDS ORDERED: Lidocaine 0.5%/Epinephrine 1:200,000 50 ml Vial ONE (14:30)
[2019-04-04] MEDS ORDERED: Fentanyl 100 MCG/2 ML VIAL ONE (14:33)
[2019-04-04] MEDS ORDERED: Lidocaine 2% Jelly 5 ML TUBE ONE (14:33)
[2019-04-04] MEDS ORDERED: Sodium Chloride 0.9% 20 ML ONE (14:35)
[2019-04-04] MEDS ORDERED: Lidocaine 1% w/Epinephrine 1:100K 20 ML VIAL ONE (14:36)
[2019-04-04] MEDS ORDERED: Promethazine HCl 25 MG/ML VIAL IM PRN (18:16)
[2019-04-04] MEDS ORDERED: Ondansetron HCl/PF 4 MG/2 ML Vial IVP PRN (18:16)
[2019-04-04] MEDS ORDERED: Promethazine HCl 25 MG/ML VIAL SLOW IVP PRN (18:16)
--- NOTE | 2019-04-04 18:53 | RAD ---
SIGNLE VIEW OF THE CHEST: 04/04/19 COMPARISON: 03/31/19 at 1:15 p.m. HISTORY: Status post hemodialysis catheter placement. FINDINGS: Single view of the chest shows a normal sized cardiomediastinal silhouette. There is a right IJ dialy sis catheter with its tip in the superior vena cava. No pneumothorax is seen. IMPRESSION: Status post dialysis catheter placement without evidence of complication. POS: [facility]
--- NOTE | 2019-04-04 18:56 | PDOC.HOSPP ---
- Subjective Subjective: Patient has no complaints. Seems a bit confused. No overnight issues. - Objective Vital Signs & Weight: Vital Signs (12 hours) Temp Pulse Resp BP Pulse Ox 04/04/19 07:57 97.9 F 90 16 93/59 L 97 Weight Admit Weight 217 lb Weight 217 lb 2.485 oz Most Recent Monitor Data Heart Rate from ECG 75 NIBP 126/77 NIBP BP-Mean 93 Respiration from ECG 19 SpO2 100 I&O: 04/03/19 04/04/19 04/05/19 06:59 06:59 06:59 Intake Total 1000 Output Total 0 Balance 1000 Result Diagrams: 04/04/19 05:18 04/04/19 05:18 Hospitalist ROS - Review of Systems All other systems reviewed; all pertinent +/- noted in HPI/Subj - Medication Medications: Active Medications Generic Name Dose Route Start Last Admin Trade Name Freq PRN Reason Stop Dose Admin Acetaminophen 650 mg 03/31/19 16:43 04/03/19 09:01 Tylenol PO 650 mg Q4H PRN Administration Headache/Fever/Mild Pain (1-3) Calcitriol 0.5 mcg 04/01/19 09:00 04/04/19 08:36 Rocaltrol PO Not Given DAILY [facility] Calcium Acetate 2,001 mg 03/31/19 17:00 04/04/19 17:35 Phoslo PO Not Given TID-[facility] Cholecalciferol 2,000 units 04/01/19 09:00 04/04/19 08:36 Vitamin D3 PO Not Given DAILY [facility] Cinacalcet 30 mg 04/01/19 09:00 04/04/19 08:37 Sensipar PO Not Given DAILY [facility] Epoetin Tanner-epbx 7,500 unit 04/01/19 09:00 04/01/19 09:55 Retacrit SC 7,500 unit Q7D [facility] Administration Famotidine 20 mg 04/02/19 09:00 04/04/19 08:35 Pepcid PO Not Given DAILY [facility] Ferrous Sulfate 325 mg 04/01/19 08:00 04/04/19 08:36 Feosol PO Not Given QAM-[facility] Heparin Sodium (Porcine) 5,000 units 04/01/19 21:00 04/04/19 15:33 Heparin SC Not Given TID [facility] Meropenem 500 mg/ Sodium 100 mls @ 200 mls/hr 04/04/19 14:00 04/04/19 14:00 Chloride IVPB Not Given 1400 [facility] Loratadine 10 mg 04/01/19 09:00 04/04/19 08:35 Claritin PO Not Given DAILY [facility] Ondansetron HCl 4 mg 03/31/19 16:43 04/03/19 09:01 Zofran IVP 4 mg Q6H PRN Administration Nausea/Vomiting Sevelamer Carbonate 2,400 mg 04/02/19 12:00 04/04/19 17:35 Renvela PO Not Given TID-WM [facility] Vancomycin HCl 125 mg 03/31/19 23:00 04/04/19 17:59 First Vancomycin PO Not Given 0500,1100,1700,2300 [facility] Vitamin B Complex/Vit C/Folic Acid 1 tab 04/01/19 09:00 04/04/19 08:36 Nephro-Sheryl Tablet PO Not Given DAILY [facility] - Exam General Appearance: NAD, awake alert Eye: PERRL, anicteric sclera ENT: normocephalic atraumatic, no oropharyngeal lesions, moist mucosa Neck: supple, symmetric, no JVD, no thyromegaly, no lymphadenopathy, no carotid bruit Heart: RRR, no murmur, no gallops, no rubs, normal peripheral pulses Respiratory: CTAB, no wheezes, no rales, no ronchi, normal chest expansion, no tachypnea, normal percussion Gastrointestinal: non-distended, normal bowel sounds, no palpable masses, no hepatomegaly, no splenomegaly, no bruit, tender to palpation Gastrointestinal - other findings: peritoneal dialysis catheter on left abdomen Extremities: no cyanosis, no clubbing, no edema Skin: normal turgor, no lesions, no rashes Neurological: cranial nerve grossly intact, normal sensation to touch, no weakness, no focal deficits, no new deficit Musculoskeletal: normal tone, normal strength, no muscle wasting Psychiatric: normal affect, normal behavior, A&O x 3 Hosp A/P (1) Bacteremia Code(s): R78.81 - BACTEREMIA Status: Acute (2) C. difficile colitis Code(s): A04.72 - ENTEROCOLITIS D/T CLOSTRIDIUM DIFFICILE, NOT SPCF RECUR Status: Acute (3) Peritoneal dialysis catheter dysfunction Code(s): T85.611A - BREAKDOWN OF INTRAPERITONEAL DIALYSIS CATHETER, INIT Status: Acute (4) Peritonitis Code(s): K65.9 - PERITONITIS, UNSPECIFIED Status: Acute (5) ESRD (end stage renal disease) on dialysis Code(s): N18.6 - END STAGE RENAL DISEASE; Z99.2 - DEPENDENCE ON RENAL DIALYSIS Status: Chronic - Plan Appreciate surgery, ID, and nephro reccs Antibiotics have been swithced to [facility] Patient going to OR today for removal of peritoneal dialysis catheter Continue other medication including calcitriol, ferrous sulfate, cincalcet for ESRD Disposition: Tx bacteremia/peritonitis. Surgery to remove peritoneal catheter today.
--- NOTE | 2019-04-04 19:51 | CON ---
DATE OF CONSULTATION: 04/04/2019 REASON FOR CONSULTATION: Peritonitis. HISTORY OF PRESENT ILLNESS: A 58-year-old with history of polycystic kidney disease and end-stage renal disease on peritoneal dialysis with 2 previous episodes of CAPD-associated peritonitis and a more recent episode where he was admitted with a dysfunction of the peritoneal dialysis catheter and during the replacement, an abscess was found. The abscess yielded polymicrobial denice with 2 different streptococci and a number of anaerobes. The patient was given cefepime and vancomycin in the hospital and then discharged on oral ciprofloxacin, which would not have antimicrobial efficacy against the organisms isolated. According to the patient and his mother, he did not have much abdominal pain, but more recently over the past 2 weeks, he started having issues with abdominal pain intermittently and feeling progressively weaker and eventually came into the emergency room. He did have generalized weakness, dry mouth, and had some cough and fever. He had fallen a couple of times, had some headaches and abdominal tenderness, which was diffused. Initial vital signs with blood pressure 90/50, pulse 58, respirations 19, temperature 97.8, and O2 saturations were 98%. On the exam, he had diffuse abdominal tenderness, most intense in the right upper quadrant. Peritoneal dialysis catheter was in place, right groin intertriginous maceration and eruptions noted. Initial white cell count 13.4 with 29% bands. AST was 66, ALT 80, and alkaline phosphatase 321. CK was 210 with albumin 2.6, globulin 4.4. Peritoneal dialysis sample with 19,000 WBCs with predominance of mature neutrophils. The 2 sets of venous blood cultures with Klebsiella oxytoca and paracentesis fluid with Klebsiella oxytoca. PAST MEDICAL HISTORY: Polycystic kidney disease with end-stage renal disease on peritoneal dialysis for few years, now two prior episodes of peritonitis and one episode of new CAPD catheter associated abscess, which was found serendipitously. He also had injury into the head associated with horse and left arm surgery. ALLERGIES: NONE. SOCIAL HISTORY: Quit smoking many years ago. Drinks daily. 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 FAMILY HISTORY: Polycystic kidney disease in his father, was already and one of his brothers who also . His mother is healthy. CURRENT MEDICATIONS: 1. Rocaltrol. 2. PhosLo. 3. Ceftriaxone. 4. Pepcid. 5. Vancomycin. PHYSICAL EXAMINATION: VITAL SIGNS: Temperature has been normal in the hospital. Blood pressure 93/59 , pulse 90, respirations 16, and O2 saturation 97%. SKIN: Shows the peritoneal dialysis catheter exit site with normal appearance. No lymphadenopathy. HEENT: Ocular exam was normal. Oral cavity with numerous missing teeth and some gum disease. NECK: Supple. No jugular venous distention. LUNGS: Symmetric. Clear breath sounds. ABDOMEN: With tenderness in the lower segments of the abdomen. No ascites. No genital abnormalities. EXTREMITIES: Pulses are 1+ in dorsalis pedis. NEUROLOGIC: Nonfocal including cognitive function. LABORATORY DATA: Followup labs; white cell count 14.7, hemoglobin 9.8, platelets 192 with creatinine 8.02. Microbiology as discussed above. IMAGING: We have abdominal ultrasound with mildly dilated common bile duct, distended gallbladder, nonspecific free fluid noted in the right upper quadrant. Chest x-ray with no intrathoracic disease. ASSESSMENT: 1. Polycystic kidney disease with end-stage renal disease, on peritoneal dialysis. 2. Previous episodes of peritoneal dialysis associated peritonitis. In the last episode, it was an abscess which was found serendipitously after dysfunction of the catheter which was replaced. 3. Polymicrobial denice in October with 3 anaerobes and 2 different streptococci, which was not treated with the proper antimicrobial regimen. 4. Recrudescence of peritonitis with neutrophilia and peripheral blood as well as bandemia and marked neutrophilia in the PD fluid. 5. Abnormal liver function tests. DISCUSSION: The episode in October was concerning for involvement of the bowel due to the polymicrobial nature of the abscess. This would imply maybe some complication associated with the catheter, which sometimes can result in penetration of loops of bowel. An alternate primary intraabdominal process for example, diverticulitis, appendicitis would have to be considered as well. The patient now presents with Klebsiella oxytoca bacteremia and peritonitis and we still would be concerned with secondary peritonitis rather than just primary and it is important to image his abdomen and pelvis with IV and oral contrast to rule out that possibility. He does have abnormal liver function tests and pylephlebitis with liver abscess needs to be considered as well as biliary tract complications. We will switch him to meropenem until those findings are resolved. Discontinue vancomycin. Job ID: [id number] [facility]
[2019-04-04] MEDS: Meropenem 500 MG in Sodium Chloride 0.9% 100 ML IVPB SCH (22:20)
[2019-04-05] MEDS: Vancomycin HCl 25 MG/ML Oral PO SCH ×5 (00:11→23:49)
[2019-04-05 05:33] LABS: #Eosinphils 0.1 thou/uL (0.0-0.7); #Lymphocytes 0.7 thou/uL (1.20-3.40); #Monocytes 0.6 thou/uL (0.11-0.59); #Neutrophils 10.9 thou/uL (1.40-6.50); %Basophils 0.3 % (0.0-1.0); %Eosinophils 0.6 % (0.0-10.0); %Lymphocytes 5.7 % (21.0-51.0); %Monocytes 5.1 % (0.0-10.0); %Neutrophils 88.4 % (42.0-75.0); Hemoglobin 8.8 g/dL (14.0-18.0); Mean Corpuscular Volume 96.9 fL (78.0-98.0); Mean Platelet Volume 9.1 fL (7.4-10.4); Platelet Count 141 thou/uL (130-400); Red Blood Cell (RBC) Count 2.83 mill/uL (4.70-6.10); White Blood Cell (WBC) Count 12.3 thou/uL (4.8-10.8)
[2019-04-05 05:52] LABS: Anion Gap 17 mmol/L (10-20); BUN (Urea Nitrogen) 47 mg/dL (8.4-25.7); Calc. Creatinine Clearance 17 mL/min (70-130); Calcium 8.3 mg/dL (7.8-10.44); Carbon Dioxide 25 mmol/L (22-29); Chloride 101 mmol/L (98-107); Estimated GFR-MDRD 9; Glucose 113 mg/dL (70-105); Potassium 3.8 mmol/L (3.5-5.1); Sodium 139 mmol/L (136-145)
[2019-04-05] MEDS: Acetaminophen 325 MG TAB PO PRN ×3 (07:28→23:56)
[2019-04-05] MEDS: Folic Acid/Vit B Comp W-C PO SCH (08:16)
[2019-04-05] MEDS: Calcium Acetate 667 MG CAP PO SCH ×3 (08:16→17:39)
[2019-04-05] MEDS: Cinacalcet HCl 30 MG TAB PO SCH (08:16)
[2019-04-05] MEDS: Famotidine 20 MG TAB PO SCH (08:17)
[2019-04-05] MEDS: Ferrous Sulfate 325 MG TAB PO SCH (08:17)
[2019-04-05] MEDS: Loratadine 10 MG TAB PO SCH (08:17)
[2019-04-05] MEDS: Calcitriol 0.25 MCG CAP PO SCH (08:17)
[2019-04-05] MEDS: Heparin 5,000 UNITS/ML VIAL SC SCH ×3 (08:18→20:14)
[2019-04-05] MEDS: Sevelamer Carbonate 800 MG TAB PO SCH ×3 (10:44→17:39)
--- NOTE | 2019-04-05 11:32 | ULT ---
Exam: Vein mapping for dialysis access HISTORY: End-stage renal disease. TECHNIQUE: Multiplanar grayscale and color Doppler images were obtained in a bilateral upper extremit y venous ultrasound. Spectral analysis of the Doppler waveforms of the vessels were performed. FINDINGS: The bilateral internal jugular veins and subclavian veins are patent without evidence of th rombus. Right brachial artery 3.8 mm Right radial artery 2.7 mm Right ulnar artery 2.0 mm Left brachial artery 2.3 mm Left radial artery 1.9 mm Left ulnar artery 2.2 mm RIGHT CEPHALIC VEIN in millimeters 4.7 -- Shoulder 4.7 -- Upper arm 4.8 -- Mid upper arm 3.4-- Just proximal to the elbow 3.0 -- Just distal to the elbow 3.4 -- Forearm 3.1 -- Wrist RIGHT BASILIC VEIN in millimeters 6.9 -- Shoulder 6.7 -- Upper arm 4.7 -- Mid upper arm 5.2 -- Just proximal to the elbow 4.1 -- Just distal to the elbow 3.6 -- Forearm 1.5 -- Wrist LEFT CEPHALIC VEIN in millimeters 5.0 -- Shoulder 4.7 -- Upper arm 5.3 -- Mid upper arm 4.2 -- Just proximal to the elbow 3.2 -- Just distal to the elbow 3.8 -- Forearm 3.9 -- Wrist LEFT BASILIC VEIN in millimeters 3.2 -- Shoulder 3.3 -- Upper arm 3.3 -- Mid upper arm 3.9 -- Just proximal to the elbow 3.4 -- Just distal to the elbow 1.6 -- Forearm 1.4 -- Wrist IMPRESSION: Vein mapping for dialysis access as above
--- NOTE | 2019-04-05 12:17 | PRG ---
DATE OF SERVICE: 04/05/2019 SUBJECTIVE: Mr. Ribeiro is a 58-year-old white male, who was admitted for sepsis/peritonitis. Currently, on IV antibiotics. ID consult has been done. In addition, we are following him up for his maintenance hemodialysis. He had an operative procedure done, where a cuffed hemodialysis catheter was placed and the PD catheter was adjusted. We are going to using/challenging him for peritoneal dialysis. However, he complains of some abdominal tenderness today. For that reason, we will off peritoneal dialysis over the weekend and resume it when the abdominal pain is much improved. The patient voices no new complaints. No chest pain. No shortness of breath. He does complain of just mild abdominal pain. OBJECTIVE: VITAL SIGNS: Blood pressure is 143/72, heart rate 107, respiratory rate 20, temperature 97.9, and pulse ox 100%. GENERAL: Awake, alert, comfortable, not in overt distress. SKIN: Adequate turgor. HEENT: He has a slightly pale conjunctivae. Anicteric sclerae. NECK: No neck mass. No carotid bruits. No JVD. CHEST: No deformities. LUNGS: Clear breath sounds. No wheezing. No crackles. HEART: Normal sinus rhythm. No murmur. No gallops. No rubs. ABDOMEN: Globular, soft, mildly tender. No masses. Positive for PD catheter. EXTREMITIES: No edema. MEDICATIONS: Medications of April 05, 2019, were reviewed. LABORATORY DATA: Laboratories of April 05, 2019; white count 12.3, hemoglobin 8.8. Sodium 139, potassium 3.8, chloride 101, carbon dioxide 25, BUN 47, creatinine 6.52, glucose 113, and calcium 8.3. ASSESSMENT AND PLAN: 1. Peritonitis/bacteremia - as per recommendation by ID, IV meropenem was added. 2. End-stage renal disease - we will continue current hemodialysis regimen for the moment. Consider starting peritoneal dialysis this coming Sunday. Continue supportive care. No indication for any emergent hemodialysis. 3. Anemia, stable. We will continue current weekly Epogen and iron supplementation. Overall, prognosis remains guarded. Job ID: [id number]
--- NOTE | 2019-04-05 15:04 | PDOC.HOSPP ---
- Subjective Subjective: Had peritoneal dialysis catheter removed yeterday. States has pain in abdomen. No other complaints. Denies fever, chills, cp, sob, or diarrhea, - Objective Vital Signs & Weight: Vital Signs (12 hours) Temp Pulse Resp BP BP Pulse Ox 04/05/19 08:00 97.9 F 107 H 20 143/72 H 100 04/05/19 04:00 98.4 F 107 H 20 104/68 93 L Weight Admit Weight 217 lb Weight 217 lb 2.485 oz Most Recent Monitor Data Heart Rate from ECG 75 NIBP 126/77 NIBP BP-Mean 93 Respiration from ECG 19 SpO2 100 Result Diagrams: 04/05/19 05:10 04/05/19 05:10 Hospitalist ROS - Review of Systems All other systems reviewed; all pertinent +/- noted in HPI/Subj - Medication Medications: Active Medications Generic Name Dose Route Start Last Admin Trade Name Freq PRN Reason Stop Dose Admin Acetaminophen 650 mg 03/31/19 16:43 04/05/19 12:13 Tylenol PO 650 mg Q4H PRN Administration Headache/Fever/Mild Pain (1-3) Calcitriol 0.5 mcg 04/01/19 09:00 04/05/19 08:17 Rocaltrol PO 0.5 mcg DAILY [facility] Administration Calcium Acetate 2,001 mg 03/31/19 17:00 04/05/19 12:13 Phoslo PO 2,001 mg TID-WM [facility] Administration Cholecalciferol 2,000 units 04/01/19 09:00 04/05/19 08:17 Vitamin D3 PO 2,000 units DAILY [facility] Administration Cinacalcet 30 mg 04/01/19 09:00 04/05/19 08:16 Sensipar PO 30 mg DAILY [facility] Administration Epoetin Tanner-epbx 7,500 unit 04/01/19 09:00 04/01/19 09:55 Retacrit SC 7,500 unit Q7D [facility] Administration Famotidine 20 mg 04/02/19 09:00 04/05/19 08:17 Pepcid PO 20 mg DAILY [facility] Administration Ferrous Sulfate 325 mg 04/01/19 08:00 04/05/19 08:17 Feosol PO 325 mg QAM-WM [facility] Administration Heparin Sodium (Porcine) 5,000 units 04/01/19 21:00 04/05/19 14:41 Heparin SC 5,000 units TID [facility] Administration Meropenem 500 mg/ Sodium 100 mls @ 200 mls/hr 04/04/19 20:00 04/04/19 22:20 Chloride IVPB 100 mls 2000 [facility] Administration Loratadine 10 mg 04/01/19 09:00 04/05/19 08:17 Claritin PO 10 mg DAILY [facility] Administration Ondansetron HCl 4 mg 03/31/19 16:43 04/03/19 09:01 Zofran IVP 4 mg Q6H PRN Administration Nausea/Vomiting Sevelamer Carbonate 2,400 mg 04/02/19 12:00 04/05/19 14:41 Renvela PO 2,400 mg TID-WM [facility] Administration Vancomycin HCl 125 mg 03/31/19 23:00 04/05/19 12:14 First Vancomycin PO 125 mg 0500,1100,1700,2300 [facility] Administration Vitamin B Complex/Vit C/Folic Acid 1 tab 04/01/19 09:00 04/05/19 08:16 Nephro-Sheryl Tablet PO 1 tab DAILY [facility] Administration - Exam General Appearance: NAD, awake alert Eye: PERRL, anicteric sclera ENT: normocephalic atraumatic, no oropharyngeal lesions, moist mucosa Neck: supple, symmetric, no JVD, no thyromegaly, no lymphadenopathy, no carotid bruit Heart: RRR, no murmur, no gallops, no rubs, normal peripheral pulses Respiratory: CTAB, no wheezes, no rales, no ronchi, normal chest expansion, no tachypnea, normal percussion Gastrointestinal: soft, normal bowel sounds, no palpable masses, no hepatomegaly , no splenomegaly, no bruit, tender to palpation Extremities: no cyanosis, no clubbing, no edema Skin: normal turgor, no lesions, no rashes Neurological: cranial nerve grossly intact, normal sensation to touch, no weakness, no focal deficits, no new deficit Musculoskeletal: normal tone, normal strength, no muscle wasting Psychiatric: normal affect, normal behavior, A&O x 3 Hosp A/P (1) Bacteremia Code(s): R78.81 - BACTEREMIA Status: Acute (2) C. difficile colitis Code(s): A04.72 - ENTEROCOLITIS D/T CLOSTRIDIUM DIFFICILE, NOT SPCF RECUR Status: Acute (3) Peritoneal dialysis catheter dysfunction Code(s): T85.611A - BREAKDOWN OF INTRAPERITONEAL DIALYSIS CATHETER, INIT Status: Acute (4) Peritonitis Code(s): K65.9 - PERITONITIS, UNSPECIFIED Status: Acute (5) ESRD (end stage renal disease) on dialysis Code(s): N18.6 - END STAGE RENAL DISEASE; Z99.2 - DEPENDENCE ON RENAL DIALYSIS Status: Chronic - Plan Appreciate surgery, ID, and nephro reccs Continuing with [facility] to continue hemodialysis until Sunday Continue other medication including calcitriol, ferrous sulfate, cincalcet for ESRD Disposition: Tx bacteremia/peritonitis. ID, Surgery, and Nephro on board. Will continue to coordinate care.
[2019-04-05] MEDS: Meropenem 500 MG in Sodium Chloride 0.9% 100 ML IVPB SCH (20:13)
[2019-04-06] MEDS: Vancomycin HCl 25 MG/ML Oral PO SCH ×4 (05:13→22:30)
[2019-04-06 05:31] LABS: #Basophils 0.1 thou/uL (0.0-0.2); #Eosinphils 0.1 thou/uL (0.0-0.7); #Lymphocytes 0.8 thou/uL (1.20-3.40); #Monocytes 0.7 thou/uL (0.11-0.59); #Neutrophils 8.7 thou/uL (1.40-6.50); %Basophils 0.6 % (0.0-1.0); %Eosinophils 1.2 % (0.0-10.0); %Lymphocytes 7.7 % (21.0-51.0); %Neutrophils 83.7 % (42.0-75.0); Hemoglobin 9.1 g/dL (14.0-18.0); Mean Corpuscular HGB CONC 31.9 g/dL (32.0-36.0); Mean Corpuscular Hemoglobin 31.1 pg (27.0-31.0); Mean Corpuscular Volume 97.4 fL (78.0-98.0); Mean Platelet Volume 8.9 fL (7.4-10.4); Platelet Count 152 thou/uL (130-400); RBC Distribution Width 11.9 % (11.5-14.5); Red Blood Cell (RBC) Count 2.93 mill/uL (4.70-6.10); White Blood Cell (WBC) Count 10.4 thou/uL (4.8-10.8)
[2019-04-06 05:51] LABS: Anion Gap 17 mmol/L (10-20); BUN (Urea Nitrogen) 65 mg/dL (8.4-25.7); Calc. Creatinine Clearance 12 mL/min (70-130); Calcium 8.8 mg/dL (7.8-10.44); Carbon Dioxide 25 mmol/L (22-29); Chloride 99 mmol/L (98-107); Estimated GFR-MDRD 6; Glucose 100 mg/dL (70-105); Potassium 3.8 mmol/L (3.5-5.1); Sodium 137 mmol/L (136-145)
[2019-04-06] MEDS: Acetaminophen 325 MG TAB PO PRN (07:48)
[2019-04-06] MEDS ORDERED: Multivitamin W/ Minerals 1 TAB PO SCH (09:00)
--- NOTE | 2019-04-06 09:57 | CT ---
CT abdomen and pelvis with IV contrast. Oral contrast was administered. INDICATIONS: Abdominal pain. Peritonitis. End-stage renal disease. COMPARISON: CT abdomen pelvis 08/01/2016 FINDINGS: Images through lung bases show small bilateral effusions. Images of the liver show mild intrahepatic biliary duct dilatation which has occurred since the prior exam. Mild extrahepatic biliary duct dilatation. Small hepatic cystic lesions near the falciform ligament are stable. No focal liver mass. Spleen and pancreas appear unremarkable. Stomach and duodenum appear unremarkable. Adrenal glands appear normal. Images of the kidneys again show polycystic kidney disease with numerous bilateral renal cystic lesio ns, stable in appearance. There are nonobstructing bilateral renal calcifications. No evidence of ureteral calculus or dilatation. The urinary bladder is unremarkable. Mild nonspecific small bowel distention without dilatation. No evidence of small bowel obstruction. Appendix is identified and appears unremarkable. Colon is nondistended. Scattered diverticula in the left colon. Small volume ascites with fluid collection seen in both lower quadrants. Peritoneal dialysis catheter enters via the left lower quadrant and is coiled within the right upper pelvis. Aorta is normal caliber. No evidence of retroperitoneal or mesenteric adenopathy. Pelvic structures appear unremarkable. Subcutaneous tissues, abdominal wall, and muscular structures appear unremarkable. Osseous structures appear unremarkable. IMPRESSION: 1. Mild intra and extra hepatic biliary duct dilatation. This is a new finding. Etiology is undetermi azul on this study. 2. Tiny bilateral pleural effusions 3. Diverticulosis of the left colon and sigmoid. 4. Polycystic kidneys with numerous nonobstructing calculi in the upper collecting structures of both kidneys again noted. 5. Low volume ascites
--- NOTE | 2019-04-06 11:00 | PDOC.HOSPP ---
- Subjective Subjective: Sinus tachy overnight. States his pain is well controlled. Is going for CT abdomen today. No other overnight events. - Objective Vital Signs & Weight: Vital Signs (12 hours) Temp Pulse Resp BP BP Pulse Ox 04/06/19 08:29 142 H 04/06/19 08:00 97.8 F 131 H 20 116/79 94 L 04/06/19 05:28 98.4 F 117 H 18 111/64 100 04/06/19 01:28 97.8 F 118 H 16 124/84 96 Weight Admit Weight 217 lb Weight 217 lb 2.485 oz Most Recent Monitor Data Heart Rate from ECG 75 NIBP 126/77 NIBP BP-Mean 93 Respiration from ECG 19 SpO2 100 Result Diagrams: 04/06/19 05:20 04/06/19 05:20 Hospitalist ROS - Review of Systems All other systems reviewed; all pertinent +/- noted in HPI/Subj - Medication Medications: Active Medications Generic Name Dose Route Start Last Admin Trade Name Freq PRN Reason Stop Dose Admin Acetaminophen 650 mg 03/31/19 16:43 04/06/19 07:48 Tylenol PO 650 mg Q4H PRN Administration Headache/Fever/Mild Pain (1-3) Calcitriol 0.5 mcg 04/01/19 09:00 04/05/19 08:17 Rocaltrol PO 0.5 mcg DAILY [facility] Administration Calcium Acetate 2,001 mg 03/31/19 17:00 04/05/19 17:39 Phoslo PO 2,001 mg TID-WM [facility] Administration Cholecalciferol 2,000 units 04/01/19 09:00 04/05/19 08:17 Vitamin D3 PO 2,000 units DAILY [facility] Administration Cinacalcet 30 mg 04/01/19 09:00 04/05/19 08:16 Sensipar PO 30 mg DAILY [facility] Administration Epoetin Tanner-epbx 7,500 unit 04/01/19 09:00 04/01/19 09:55 Retacrit SC 7,500 unit Q7D [facility] Administration Famotidine 20 mg 04/02/19 09:00 04/05/19 08:17 Pepcid PO 20 mg DAILY [facility] Administration Ferrous Sulfate 325 mg 04/01/19 08:00 04/05/19 08:17 Feosol PO 325 mg QAM-WM [facility] Administration Heparin Sodium (Porcine) 5,000 units 04/01/19 21:00 04/05/19 20:14 Heparin SC 5,000 units TID [facility] Administration Meropenem 500 mg/ Sodium 100 mls @ 200 mls/hr 04/04/19 20:00 04/05/19 20:13 Chloride IVPB 100 mls 2000 [facility] Administration Loratadine 10 mg 04/01/19 09:00 04/05/19 08:17 Claritin PO 10 mg DAILY [facility] Administration Ondansetron HCl 4 mg 03/31/19 16:43 04/03/19 09:01 Zofran IVP 4 mg Q6H PRN Administration Nausea/Vomiting Sevelamer Carbonate 2,400 mg 04/02/19 12:00 04/05/19 17:39 Renvela PO 2,400 mg TID-WM [facility] Administration Vancomycin HCl 125 mg 03/31/19 23:00 04/06/19 05:13 First Vancomycin PO 125 mg 0500,1100,1700,2300 [facility] Administration Vitamin B Complex/Vit C/Folic Acid 1 tab 04/01/19 09:00 04/05/19 08:16 Nephro-Sheryl Tablet PO 1 tab DAILY [facility] Administration - Exam General Appearance: NAD, awake alert Eye: PERRL, anicteric sclera ENT: normocephalic atraumatic, no oropharyngeal lesions, moist mucosa Neck: supple, symmetric, no JVD, no thyromegaly, no lymphadenopathy, no carotid bruit Heart: RRR, no murmur, no gallops, no rubs, normal peripheral pulses Respiratory: CTAB, no wheezes, no rales, no ronchi, normal chest expansion, no tachypnea, normal percussion Gastrointestinal: soft, non-tender, non-distended, normal bowel sounds, no palpable masses, no hepatomegaly, no splenomegaly, no bruit Gastrointestinal - other findings: peritoneal catheter in place, nontender Extremities: no cyanosis, no clubbing, no edema Skin: normal turgor, no lesions, no rashes Neurological: cranial nerve grossly intact, normal sensation to touch, no weakness, no focal deficits, no new deficit Musculoskeletal: normal tone, normal strength, no muscle wasting Psychiatric: normal affect, normal behavior, A&O x 3 Hosp A/P (1) Bacteremia Code(s): R78.81 - BACTEREMIA Status: Acute (2) C. difficile colitis Code(s): A04.72 - ENTEROCOLITIS D/T CLOSTRIDIUM DIFFICILE, NOT SPCF RECUR Status: Acute (3) Peritoneal dialysis catheter dysfunction Code(s): T85.611A - BREAKDOWN OF INTRAPERITONEAL DIALYSIS CATHETER, INIT Status: Acute (4) Peritonitis Code(s): K65.9 - PERITONITIS, UNSPECIFIED Status: Acute (5) ESRD (end stage renal disease) on dialysis Code(s): N18.6 - END STAGE RENAL DISEASE; Z99.2 - DEPENDENCE ON RENAL DIALYSIS Status: Chronic - Plan Appreciate surgery, ID, and nephro reccs Continuing with [facility] Continue with oral vanco for c.diff, started on 03/31 ID has ordered repeat CT scan, will follow result Nephro to continue hemodialysis until Sunday Continue other medication including calcitriol, ferrous sulfate, cincalcet for ESRD Disposition: Tx bacteremia/peritonitis. ID, Surgery, and Nephro on board. Will continue to coordinate care.
[2019-04-06] MEDS ORDERED: Iopamidol 370 76% 50 ML VIAL FS ONE (11:13)
[2019-04-06] MEDS ORDERED: Iopamidol-370 76% 500 ML 1 ML ONE (11:13)
[2019-04-06] MEDS: Calcitriol 0.25 MCG CAP PO SCH (11:15)
[2019-04-06] MEDS: Folic Acid/Vit B Comp W-C PO SCH (11:15)
[2019-04-06] MEDS: Cinacalcet HCl 30 MG TAB PO SCH (11:16)
[2019-04-06] MEDS: Calcium Acetate 667 MG CAP PO SCH ×3 (11:16→17:03)
[2019-04-06] MEDS: Sevelamer Carbonate 800 MG TAB PO SCH ×3 (11:17→17:03)
[2019-04-06] MEDS: Ferrous Sulfate 325 MG TAB PO SCH (11:18)
[2019-04-06] MEDS: Famotidine 20 MG TAB PO SCH (11:18)
[2019-04-06] MEDS: Loratadine 10 MG TAB PO SCH (11:18)
[2019-04-06] MEDS: Heparin 5,000 UNITS/ML VIAL SC SCH ×3 (11:19→20:28)
--- NOTE | 2019-04-06 14:03 | PRG ---
DATE OF SERVICE: 04/06/2019 SUBJECTIVE: Mr. Ribeiro is a 58-year-old white male with ESRD and was initially admitted due to sepsis and peritonitis. PD catheter was also nonfunctional. This was surgically repaired by Dr. Regan. In addition, he is being empirically treated with IV antibiotics. ID consult was done, which recommended addition of meropenem. We will attempt to use the PD catheter tomorrow when his abdominal pain is a little less. His abdominal pain has actually improved this morning. He denies any chest pain or shortness of breath. OBJECTIVE: VITAL SIGNS: Blood pressure 116/79, heart rate is 131, respiratory rate 20, temperature 97.8, pulse ox 94%. GENERAL: Noted to be awake, alert, comfortable, not in overt distress. SKIN: Adequate turgor. HEENT: Slightly pale conjunctivae. Anicteric sclerae. No neck mass. No carotid bruits. No JVD. CHEST: No deformities. LUNGS: Clear breath sounds. No wheezing. No crackles. HEART: Tachycardic. No murmur. No gallops. No rubs. ABDOMEN: Globular, soft, nontender. Positive for PD catheter. EXTREMITIES: No edema. MEDICATIONS: Of April 06, 2019, were reviewed. LABORATORY DATA: Laboratories of April 06, 2019: Hemoglobin 9.1, white count 10.4. Sodium 137, potassium 3.8, chloride 99, carbon dioxide 25, BUN 65, creatinine 9.02, glucose 100, calcium 8.8. ASSESSMENT AND PLAN: 1. Uremia/end-stage renal disease - the patient was emergently hemodialyzed due to his uremic signs and symptoms. He had a BUN of 300 at that time. He tolerated said treatment. There is no indication for any emergent hemodialysis today. We will resume hemodialysis tomorrow, in addition tomorrow night, we will consider starting him on low fill volume peritoneal dialysis to see if the PD catheter will be functional. 2. Anemia, continue weekly Epogen. The patient is currently on weekly Epogen. 3. Sepsis/peritonitis, clinically much improved. Continue IV antibiotics. Agree with current management. Job ID: [id number]
[2019-04-06] MEDS: Meropenem 500 MG in Sodium Chloride 0.9% 100 ML IVPB SCH (20:30)
[2019-04-07] MEDS: Vancomycin HCl 25 MG/ML Oral PO SCH ×3 (05:57→17:24)
[2019-04-07 06:13] LABS: #Eosinphils 0.1 thou/uL (0.0-0.7); #Lymphocytes 0.9 thou/uL (1.20-3.40); #Monocytes 0.6 thou/uL (0.11-0.59); #Neutrophils 4.9 thou/uL (1.40-6.50); %Basophils 0.4 % (0.0-1.0); %Eosinophils 0.9 % (0.0-10.0); %Lymphocytes 13.4 % (21.0-51.0); %Monocytes 9.3 % (0.0-10.0); Hemoglobin 8.1 g/dL (14.0-18.0); Mean Corpuscular HGB CONC 31.9 g/dL (32.0-36.0); Mean Corpuscular Hemoglobin 30.7 pg (27.0-31.0); Mean Corpuscular Volume 96.3 fL (78.0-98.0); Mean Platelet Volume 8.5 fL (7.4-10.4); Platelet Count 136 thou/uL (130-400); RBC Distribution Width 11.9 % (11.5-14.5); Red Blood Cell (RBC) Count 2.62 mill/uL (4.70-6.10); White Blood Cell (WBC) Count 6.4 thou/uL (4.8-10.8)
[2019-04-07 06:35] LABS: Anion Gap 19 mmol/L (10-20); BUN (Urea Nitrogen) 78 mg/dL (8.4-25.7); Calc. Creatinine Clearance 10 mL/min (70-130); Calcium 9.3 mg/dL (7.8-10.44); Carbon Dioxide 23 mmol/L (22-29); Chloride 98 mmol/L (98-107); Estimated GFR-MDRD 5; Glucose 101 mg/dL (70-105); Potassium 4.1 mmol/L (3.5-5.1); Sodium 136 mmol/L (136-145)
[2019-04-07 07:58] LABS: ALT (SGPT) Less than 7 U/L (8-55); AST (SGOT) 20 U/L (5-34); Albumin 2.9 g/dL (3.5-5.0); Alkaline Phosphatase 141 U/L (40-110); Bilirubin, Direct 0.3 mg/dL (0.1-0.3); Bilirubin, Total 0.5 mg/dL (0.2-1.2); Protein, Total 6.7 g/dL (6.0-8.3)
[2019-04-07] MEDS: Calcitriol 0.25 MCG CAP PO SCH (08:03)
[2019-04-07] MEDS: Calcium Acetate 667 MG CAP PO SCH ×3 (08:04→17:25)
[2019-04-07] MEDS: Ferrous Sulfate 325 MG TAB PO SCH (08:04)
[2019-04-07] MEDS: Folic Acid/Vit B Comp W-C PO SCH (08:04)
[2019-04-07] MEDS: Cinacalcet HCl 30 MG TAB PO SCH (08:04)
[2019-04-07] MEDS: Heparin 5,000 UNITS/ML VIAL SC SCH ×3 (08:04→20:59)
[2019-04-07] MEDS: Loratadine 10 MG TAB PO SCH (08:04)
[2019-04-07] MEDS: Famotidine 20 MG TAB PO SCH (08:04)
[2019-04-07] MEDS: Sevelamer Carbonate 800 MG TAB PO SCH ×3 (08:04→17:25)
[2019-04-07] MEDS: Acetaminophen 325 MG TAB PO PRN ×2 (08:22→21:02)
--- NOTE | 2019-04-07 09:42 | OP ---
DATE OF PROCEDURE: 04/04/2019 PROCEDURES PERFORMED: Right internal jugular tunneled hemodialysis catheter with ultrasound and fluoroscopic guidance and diagnostic laparoscopy with lysis of adhesions and washout of the abdominal cavity. PREOPERATIVE DIAGNOSIS: Peritonitis with nonfunctioning PD catheter. POSTOPERATIVE DIAGNOSIS: Peritonitis with nonfunctioning PD catheter. HISTORY: Mr. Ribeiro is a 58-year-old gentleman with end-stage renal failure due to polycystic kidney disease. He presented with a 1-week history of a poorly functioning peritoneal dialysis catheter and cloudy drainage and was found to be septic. He required emergency hemodialysis through the femoral catheter, which was placed for this purpose and now requires access for ongoing dialysis. The patient is strongly opposed to remaining on hemodialysis and wants to keep his peritoneal dialysis catheter if it can be made to function again. He does understand that he is at risk for recurrent or persistent peritonitis, which can be life-threatening. He has had several episodes of peritonitis and some chronic ongoing problems with his peritoneal dialysis catheter. He does not want to consider conversion to hemodialysis. He does understand that his peritoneal dialysis catheter may not function adequately, so a tunneled dialysis catheter was recommended and he is willing to proceed with that. DESCRIPTION OF PROCEDURE: After informed consent was obtained and appropriate preoperative antibiotics continued, the patient was taken to the operating room, where he was placed in supine position and general endotracheal anesthesia was administered. The neck and chest were prepped and draped in standard sterile fashion and the patent compressible right internal jugular vein identified using a sterile ultrasound probe. Local anesthesia was infused and the vein was accessed under direct vision. Easily on the first attempt, a wire was threaded and was confirmed to be in the patent compressible internal jugular vein by ultrasound and to be appropriately in the superior vena cava by fluoroscopy. Additional local anesthesia was infused to the skin and subcutaneous tissues of the right neck and chest and an infraclavicular incision was made. A cuffed dialysis catheter was tunneled from this location to the right IJ access site. The tract was then serially dilated over the wire and a dilator and sheath placed over the wire and the dilator and wire removed leaving the sheath in place. The catheter was then tunneled through the sheath, which was split and removed leaving the catheter in place. Both ports were easily aspirated dark venous nonpulsatile blood and easily flushed without resistance. The course of the catheter was confirmed to be smooth without kinking by fluoroscopy. Heparin was instilled of the quantity specified on the cap and the skin incision was closed with 4-0 subcuticular Monocryl suture and dressed with Dermabond. The catheter was secured to the skin with nylon sutures and once the Dermabond was dry, a chlorhexidine impregnated dressing was placed. Attention was then turned to the peritoneal dialysis catheter. The catheter was soaked and disinfectant, and the abdomen and catheter prepped with chlorhexidine. The extension tubing was removed and carbon dioxide gas insufflated through the peritoneal dialysis catheter. Pressure was somewhat high ranging between 11 and 15, but pneumoperitoneum was able to be achieved. Local anesthesia was infused through the skin and subcutaneous tissues at the level of the umbilicus, and a ClearView port advanced under direct laparoscopic vision into the abdominal cavity, which was carefully examined. There was no evidence of trocar injury and there were no adhesions at the level of the umbilicus. The patient was noted to have cloudy peritoneal fluid and extensive fibrinous debris throughout the abdomen. This was irrigated out and the fibrinous material mechanically removed as much as possible. The catheter was appropriately positioned in the pelvis. The patient was found to have chronic appearing adhesions between the bladder and the colon severely reducing the space in which the catheter was placed. The adhesions were quite dense and it was felt that taking these adhesions down would be risking injury to the colon or to the bladder. Therefore, the catheter was repositioned lateral to the colon as deep in the pelvis as possible. There were multiple small bowel loops in the pelvis in the same general area. These were able to be drawn out of the pelvis and did not appear to be fixed in the pelvis, but there were multiple chronic interloop adhesions most likely from previous episode of peritonitis. These were nonobstructing in nature and were not taken down due to their chronic nature. The abdominal cavity was copiously irrigated and as much of the cloudy peritoneal fluid and fibrinous debris as possible was removed. The catheter was placed to gravity and intraabdominal pressure lowered and the fluid instilled into the pelvis did drain freely. Heparin was instilled into the peritoneal dialysis catheter and appropriate extension tubing placed. The right upper quadrant trocar was removed under direct laparoscopic vision and a 0 Vicryl suture placed under direct laparoscopic vision using a GraNee needle across this incision. The catheter was then replaced at that location and the fascia at the umbilicus closed using the same technique. Carbon dioxide gas was allowed to desufflate and both sutures were secured closing the fascia at the laparoscopic incision sites. Additional local anesthesia was infused for postoperative pain control and the skin incisions were closed with 4-0 subcuticular Monocryl suture. Dermabond dressings were placed and the patient was extubated and taken to Recovery in good condition. Estimated blood loss was minimal. There were no complications. There were no specimens. Job ID: [id number]
--- NOTE | 2019-04-07 12:08 | PQF ---
YUSEF FULTON TONI MD [id number] CLINICAL DOCUMENTATION IMPROVEMENT CLARIFICATION FORM: ICD-10 Updated PLEASE DO AN ADDENDUM TO THE PROGRESS NOTE WITH ANY DOCUMENTATION UPDATES OR ADDITIONS AND CARRY THROUGH TO DC SUMMARY. THANK YOU. DATE: , 04/08/2019, 04/09/2019 ATTN: DR. Anh MORGAN Please exercise your independent, professional judgment in responding to the clarification form. Clinical indicators are provided on the bottom of this form for your review. Please check appropriate box(es): [ X] Sepsis due to: Peritonitis Due to: [ X ] Peritoneal Dialysis Catheter [ ] Sepsis NOT due to : Peritonitis Due to: [ ] Peritoneal Dialysis Catheter [ ] Severe sepsis with acute organ dysfunction of: (Examples: respiratory failure, encephalopathy, acute kidney failure, other) [ ] Septic Shock [ ] Localized infection without sepsis [ ] Other diagnosis [ ] Unable to determine In addition, please specify: Present on Admission (POA): [ X ] Yes [ ] No [ ] Unable to determine For continuity of documentation, please document condition throughout progress notes and discharge summary. Thank You. CLINICAL INDICATORS - SIGNS / SYMPTOMS / LABS / RESULTS AND LOCATION IN MR 03/31 WBC 13.4 > 11.3> 10.5 > 14.7 > 12.3 > 10.4 > 6.4 03/31 BANDS 29 03/31 ED PHYSICIAN FINAL DX SEPTIC SHOCK, HYPERKALEMIA, PERITONITIS, UREMIA 03/31 H&P (( OLEJEME) HX OF ESRD ON PD DUE TO POLYCYSTIC KIDNEYS, HTN AND BPH WHO PRESENTED TO THE ER FROM HIS [employer] OFFICE DUE TO NON FUNCTIONING PD CATH. 04/02 PN (MAXI) PERITONITIS GRAM- RODS , KLEBSIELLA GROWING OUT OF 2/2 BLOOD CULTURES 04/02 CONSULT (BRENDA) HIS DIALYSIS CATHETER HAS NOT BEEN WORKING WORKING SINCE HE CAME IN DESPITE ADMINISTERING CATH/DAVID SEVERAL TIMES. HE HAS HAD MULTIPLE BLOOD CULTURES POSITIVE FOR KLEBSIELLA AND HIS PERITONEAL DIALYSATE IS ALSO POSITIVE FOR KLEBSIELLA. 04/06 PN (BUNN) A/P: 3). SEPSIS/PERITONITIS RISK: ESRD, BACTEREMIA , PERITONITIS (MAXI/PN) 04/02 TREATMENTS: ID CONSULT 04/04 PERITONEAL FLUID/BLOOD CULTURE (03/31, 04/01) VANCOMYCIN IV ( 03/31-PRESENT) MEROPENEM IV (04/04-PRESENT) THANK YOU! DAWSON (This form is maintained as a part of the permanent medical record) 2014 [employer]. All Rights Reserved [email or web address] [phone] MTDD
--- NOTE | 2019-04-07 15:54 | PRG ---
DATE OF SERVICE: 04/07/2019 SUBJECTIVE: The patient is not in the room, probably having the procedure. His vital signs have been normal. He does have decrease in O2 saturations, around 93% on room air. The abdomen and pelvis CT with mild intrahepatic and extrahepatic biliary duct dilatation, small bilateral pleural effusions, diverticulosis and polycystic kidney with nonobstructing calculi in the upper collecting structures and low volume ascites. LABORATORY DATA: Sodium 136, creatinine 10.92. Liver profile normal. Alkaline phosphatase was 141, albumin 2.9. White cell count is down to 6.4, hemoglobin 8.1, platelets 136. ASSESSMENT AND DISCUSSION: Polycystic kidney disease, end-stage renal disease peritoneal dialysis, previous episodes of PD associated peritonitis. On the last episode, there was an abscess with polymicrobial denice including three different anaerobes and 2 different streptococci, now recrudescence of peritonitis with Klebsiella pneumoniae. Catheter has been removed and the patient will be started on hemodialysis. The CT did not show any obvious areas of compromise of the bowel and no obvious inflammatory changes. He did have some mild dilatation of biliary tree. The patient has been transitioned to Rocephin and eventually can be switched to oral quinolone for discharge planning. Total duration of therapy around 10 days. Job ID: [id number]
[2019-04-07] MEDS: cefTRIAXone\\ROCEPHIN 2 GM in Sodium Chloride 0.9% 100 ML IVPB SCH (16:19)
--- NOTE | 2019-04-07 17:53 | PDOC.HOSPP ---
- Subjective Encounter Date: 04/07/19 Encounter Time: 17:51 Subjective: Mr. Ribeiro was seen today in follow-up of peritonitis. He does not have any new complaints. He feels tired and weak. - Objective Vital Signs & Weight: Vital Signs (12 hours) Temp Pulse Resp BP BP Pulse Ox 04/07/19 16:34 97.6 F 81 18 100/65 100 04/07/19 12:02 97.5 F L 92 18 108/69 93 L 04/07/19 08:00 92 L 04/07/19 07:26 98.1 F 87 20 98/64 92 L Weight Admit Weight 217 lb Weight 217 lb 2.485 oz Most Recent Monitor Data Heart Rate from ECG 75 NIBP 126/77 NIBP BP-Mean 93 Respiration from ECG 19 SpO2 100 Result Diagrams: 04/07/19 06:00 04/07/19 06:00 Hospitalist ROS - Medication Medications: Active Medications Generic Name Dose Route Start Last Admin Trade Name Freq PRN Reason Stop Dose Admin Acetaminophen 650 mg 03/31/19 16:43 04/07/19 08:22 Tylenol PO 650 mg Q4H PRN Administration Headache/Fever/Mild Pain (1-3) Calcitriol 0.5 mcg 04/01/19 09:00 04/07/19 08:03 Rocaltrol PO 0.5 mcg DAILY JASBIR Administration Calcium Acetate 2,001 mg 03/31/19 17:00 04/07/19 17:25 Phoslo PO 2,001 mg TID-WM JASBIR Administration Cholecalciferol 2,000 units 04/01/19 09:00 04/07/19 08:04 Vitamin D3 PO 2,000 units DAILY JASBIR Administration Cinacalcet 30 mg 04/01/19 09:00 04/07/19 08:04 Sensipar PO 30 mg DAILY JASBIR Administration Epoetin Tanner-epbx 7,500 unit 04/01/19 09:00 04/01/19 09:55 Retacrit SC 7,500 unit Q7D JASBIR Administration Famotidine 20 mg 04/02/19 09:00 04/07/19 08:04 Pepcid PO 20 mg DAILY JASBIR Administration Ferrous Sulfate 325 mg 04/01/19 08:00 04/07/19 08:04 Feosol PO 325 mg QAM-WM JASBIR Administration Heparin Sodium (Porcine) 5,000 units 04/01/19 21:00 04/07/19 15:23 Heparin SC Not Given TID JASBIR Ceftriaxone Sodium 2 gm/ 100 mls @ 200 mls/hr 04/07/19 14:00 04/07/19 16:19 Sodium Chloride IVPB 100 mls Q24HR JASBIR Administration Loratadine 10 mg 04/01/19 09:00 04/07/19 08:04 Claritin PO 10 mg DAILY JASBIR Administration Ondansetron HCl 4 mg 03/31/19 16:43 04/03/19 09:01 Zofran IVP 4 mg Q6H PRN Administration Nausea/Vomiting Sevelamer Carbonate 2,400 mg 04/02/19 12:00 04/07/19 17:25 Renvela PO 2,400 mg TID-WM JASBIR Administration Vancomycin HCl 125 mg 03/31/19 23:00 04/07/19 17:24 First Vancomycin PO 125 mg 0500,1100,1700,2300 JASBIR Administration Vitamin B Complex/Vit C/Folic Acid 1 tab 04/01/19 09:00 04/07/19 08:04 Nephro-Sheryl Tablet PO 1 tab DAILY JASBIR Administration - Exam General Appearance: NAD Heart: RRR, no murmur, no gallops, no rubs, normal peripheral pulses Respiratory: CTAB, no wheezes, no rales, no ronchi, normal chest expansion, no tachypnea, normal percussion Gastrointestinal: soft, non-tender, non-distended, normal bowel sounds, no palpable masses Extremities: no cyanosis, no edema Hosp A/P (1) Peritoneal dialysis catheter dysfunction Code(s): T85.611A - BREAKDOWN OF INTRAPERITONEAL DIALYSIS CATHETER, INIT Status: Acute (2) Acute peritonitis Code(s): K65.0 - GENERALIZED (ACUTE) PERITONITIS Status: Acute (3) ESRD (end stage renal disease) on dialysis Code(s): N18.6 - END STAGE RENAL DISEASE; Z99.2 - DEPENDENCE ON RENAL DIALYSIS Status: Chronic (4) HTN (hypertension) Code(s): I10 - ESSENTIAL (PRIMARY) HYPERTENSION Status: Chronic - Plan * Acute peritonitis- ID recommendations noted- the patient has been transitioned to Rocephin * ESRD- continue HD for now- he may be transitioned back to PD- as per Nephrology * HTN- blood pressure is stable * Continue PT- * Possible discharge home soon?
--- NOTE | 2019-04-07 18:57 | PRG ---
DATE OF SERVICE: 04/07/2019 SUBJECTIVE: Mr. Ribeiro is a 58-year-old white male with ESRD and followed by the [facility]al [facility]. He was initially admitted for sepsis/peritonitis. In addition, PD catheter was nonfunctional and a cuffed dialysis catheter was placed with him. He also underwent emergent hemodialysis due to uremic signs and symptoms. Surgery has tried to revise his PD catheter. We will try low volume PD solution this tonight. This to check if the PD catheter is functional. No other complaints today. He is feeling better. OBJECTIVE: VITAL SIGNS: Blood pressure 100/65, heart rate 81, respiratory rate 18, temperature 97.6, and pulse oximetry 100%. GENERAL: The patient is noted to be awake, alert, comfortable, not in distress. SKIN: Adequate turgor. HEENT: Has a slightly pale conjunctivae. Anicteric sclerae. No neck mass. No carotid bruits. No JVD. CHEST: No deformities. LUNGS: Clear breath sounds. No wheezing. No crackles. HEART: Normal sinus rhythm. No murmurs, gallops, or rubs. ABDOMEN: Globular, soft, nontender. No masses. Positive for PD catheter. EXTREMITIES: No edema. No deformities. MEDICATIONS: Medications of April 07, 2019, were reviewed. LABORATORY DATA: Laboratories of April 07, 2019. White count 6.4 and hemoglobin 8.1. Sodium 136, potassium 4.1, chloride 98, carbon dioxide 23, BUN 78, creatinine 10.92, AST 20, ALT less than 7, and albumin is 2.9. Hemoglobin 8.1. ASSESSMENT AND PLAN: 1. Anemia. Continuing weekly Epogen and iron supplementation. P.r.n. blood transfusion. 2. End-stage renal disease, hemodialysis today. The patient was said to have tolerated the said dialysis regimen. 3. Hyperphosphatemia currently on phosphate binders. We will recheck another phosphorus level in a.m. 4. Sepsis/peritonitis, on IV antibiotics. ID is following. 5. Overall agree with current management. Job ID: [id number]
--- NOTE | 2019-04-07 19:04 | EKG ---
Test Reason : Blood Pressure : / mmHG Vent. Rate : 132 BPM Atrial Rate : 132 BPM P-R Int : 118 ms QRS Dur : 088 ms QT Int : 318 ms P-R-T Axes : 042 012 087 degrees QTc Int : 471 ms Sinus tachycardia anterio-septal ischemia Abnormal ECG When compared with ECG of 31-MAR-2019 12:52, (Unconfirmed) Sinus rhythm has replaced Junctional rhythm Vent. rate has increased BY [address] no longer elevated in Lateral leads T wave inversion now evident in Anterior leads Confirmed by GI RIOJAS, SDorothea ([id number]) on 04/07/2019 7:04:45 PM Referred By: PETER Confirmed By:DR. Susie ANGELO MD
[2019-04-07] MEDS: Terazosin HCl 1 MG CAP PO SCH (20:58)
[2019-04-08] MEDS: Vancomycin HCl 25 MG/ML Oral PO SCH ×5 (00:11→23:38)
[2019-04-08] MEDS: Cinacalcet HCl 30 MG TAB PO SCH (10:02)
[2019-04-08] MEDS: Famotidine 20 MG TAB PO SCH (10:02)
[2019-04-08] MEDS: Calcitriol 0.25 MCG CAP PO SCH (10:02)
[2019-04-08] MEDS: Calcium Acetate 667 MG CAP PO SCH ×3 (10:02→18:06)
[2019-04-08] MEDS: Heparin 5,000 UNITS/ML VIAL SC SCH ×3 (10:03→21:32)
[2019-04-08] MEDS: Folic Acid/Vit B Comp W-C PO SCH (10:03)
[2019-04-08] MEDS: Loratadine 10 MG TAB PO SCH (10:03)
[2019-04-08] MEDS: Ferrous Sulfate 325 MG TAB PO SCH (10:03)
[2019-04-08] MEDS: Sevelamer Carbonate 800 MG TAB PO SCH ×3 (10:03→18:06)
[2019-04-08] MEDS: Acetaminophen 325 MG TAB PO PRN ×2 (10:09→13:48)
--- NOTE | 2019-04-08 10:19 | PRG ---
DATE OF SERVICE: 04/08/2019 SUBJECTIVE: Mr. Ribeiro is a 58-year-old white male with ESRD, was admitted for uremia, sepsis/peritonitis. He is currently on IV antibiotics and doing well. The plan is eventually to convert him to p.o. antibiotics. He is undergoing hemodialysis. Last night, I attempted to use the peritoneal dialysis - CCPD regimen using low fill volume. He tolerated it and the PD catheter was partially functional. My plan is to again repeat CCPD using a bigger 2 L fill volume tonight. Hopefully, we can use the PD catheter and discontinue hemodialysis. No other complaints. He is feeling better. OBJECTIVE: VITAL SIGNS: Blood pressure 91/58, heart rate 89, respiratory rate 18, temperature 97.9, and pulse ox 92%. GENERAL: The patient is awake, alert, and comfortable, not in distress. SKIN: Adequate turgor. HEENT: Pinkish conjunctivae. Anicteric sclerae. NECK: No neck mass. No carotid bruits. No JVD. CHEST: No deformities. LUNGS: Clear breath sounds. HEART: Normal sinus rhythm. No murmur. No gallops. No rubs. ABDOMEN: Globular, soft, and nontender. No masses. Positive for PD catheter. EXTREMITIES: No edema. No deformities. LABORATORY DATA: Laboratories of April 07, 2019, white count 6.4 and hemoglobin 8.1. Sodium 136, potassium 4.1, chloride 98, carbon dioxide 23, BUN 78, creatinine 10.92, calcium is 9.3, and albumin 2.9. ASSESSMENT AND PLAN: 1. End-stage renal disease. Continuing current dialysis regimen - we will start a full peritoneal dialysis treatment using a 2 L fill volume. If it works, we will hold off hemodialysis tomorrow. 2. Anemia. Continuing weekly Epogen. 3. Peritonitis. Clinically much improved. Status post IV antibiotics. ID is following. Agree with current management. Job ID: [id number]
[2019-04-08 12:14] LABS: #Eosinphils 0.1 thou/uL (0.0-0.7); #Lymphocytes 0.7 thou/uL (1.20-3.40); #Monocytes 0.6 thou/uL (0.11-0.59); #Neutrophils 3.8 thou/uL (1.40-6.50); %Basophils 0.6 % (0.0-1.0); %Eosinophils 1.2 % (0.0-10.0); %Lymphocytes 13.8 % (21.0-51.0); %Monocytes 11.1 % (0.0-10.0); %Neutrophils 73.3 % (42.0-75.0); Hemoglobin 8.4 g/dL (14.0-18.0); Mean Corpuscular HGB CONC 32.1 g/dL (32.0-36.0); Mean Corpuscular Hemoglobin 31.2 pg (27.0-31.0); Mean Corpuscular Volume 97.4 fL (78.0-98.0); Mean Platelet Volume 8.6 fL (7.4-10.4); Platelet Count 162 thou/uL (130-400); RBC Distribution Width 11.9 % (11.5-14.5); White Blood Cell (WBC) Count 5.1 thou/uL (4.8-10.8)
[2019-04-08 12:41] LABS: Phosphorus 5.2 mg/dL (2.3-4.7)
[2019-04-08 12:42] LABS: Anion Gap 15 mmol/L (10-20); BUN (Urea Nitrogen) 33 mg/dL (8.4-25.7); Calc. Creatinine Clearance 15 mL/min (70-130); Calcium 9.3 mg/dL (7.8-10.44); Carbon Dioxide 29 mmol/L (22-29); Chloride 99 mmol/L (98-107); Estimated GFR-MDRD 8; Glucose 99 mg/dL (70-105); Potassium 3.6 mmol/L (3.5-5.1); Sodium 139 mmol/L (136-145)
--- NOTE | 2019-04-08 14:04 | PRG ---
DATE OF SERVICE: 04/08/2019 SUBJECTIVE: The patient has decided to retain the peritoneal dialysis catheter. He had a tunneled catheter in the right IJ position. He has no abdominal pain at the moment. OBJECTIVE: VITAL SIGNS: Temperature is normal. HEART: Clear. LUNGS: Clear. ABDOMEN: Soft. LABORATORY DATA: White cell count is 5.1, hemoglobin 8.4. Klebsiella oxytoca in 2 sets of blood cultures and the paracentesis fluid. ASSESSMENT AND DISCUSSION: Polycystic kidney disease, end-stage renal disease, on peritoneal dialysis. Previous episode of diverticulitis actually which was operated on by Dr. Regan. Now, the patient with more typical CAPD peritonitis. The patient has decided to retain the catheter and we will continue Cipro for 4 weeks. Once he completes the treatment for Clostridium difficile, then he will have to be on a single dose of vancomycin 125 mg daily for the duration of the ciprofloxacin therapy. Job ID: [id number]
--- NOTE | 2019-04-08 15:12 | PDOC.GSPN ---
Surgery Progress Note: Subj - Subjective Narrative: Feels okay, no pain with PD last night, no fever, WBC normal. Incisions look good. Will follow; if PD catheter not functioning well enough to transition back , patient is willing to consent to removal and placement of fistula. Dr Avila made aware that patient declined PD catheter removal, and he recommends extending duration of treatment in that case. Surgery Progress Note: Obj - Vital signs Vital signs: Vital Signs - Most Recent Temp Pulse Resp BP Pulse Ox 97.9 F 89 18 91/58 L 92 L 04/08/19 07:51 04/08/19 07:51 04/08/19 07:51 04/08/19 07:51 04/08/19 08:00 Surgery Progress Note: Results - Labs Result Diagrams: 04/08/19 11:47 04/08/19 11:47 Lab results: Laboratory Results - last 24 hr 04/08/19 04/08/19 04/08/19 11:47 11:47 11:47 WBC 5.1 RBC 2.70 L Hgb 8.4 L Hct 26.3 L MCV 97.4 MCH 31.2 H MCHC 32.1 RDW 11.9 Plt Count 162 MPV 8.6 Neutrophils % 73.3 Lymphocytes % 13.8 L Monocytes % 11.1 H Eosinophils % 1.2 Basophils % 0.6 Neutrophils # 3.8 Lymphocytes # 0.7 L Monocytes # 0.6 H Eosinophils # 0.1 Basophils # 0.0 Sodium 139 Potassium 3.6 Chloride 99 Carbon Dioxide 29 Anion Gap 15 BUN 33 H Creatinine 7.15 H Estimated GFR (MDRD) 8 Glucose 99 Calcium 9.3 Phosphorus 5.2 H Surgery Progress Note: A/P - Problem (1) ESRD (end stage renal disease) on dialysis Current Visit: No Code(s): N18.6 - END STAGE RENAL DISEASE; Z99.2 - DEPENDENCE ON RENAL DIALYSIS Status: Chronic (2) Peritoneal dialysis catheter dysfunction Current Visit: Yes Code(s): T85.611A - BREAKDOWN OF INTRAPERITONEAL DIALYSIS CATHETER, INIT Status: Acute (3) Acute peritonitis Current Visit: No Code(s): K65.0 - GENERALIZED (ACUTE) PERITONITIS Status: Acute
[2019-04-08] MEDS: cefTRIAXone\\ROCEPHIN 2 GM in Sodium Chloride 0.9% 100 ML IVPB SCH (15:34)
[2019-04-08] MEDS: EPOETIN ALFA-EPBX (ESRD) 4,000 UNIT/ML VIAL SC SCH (15:34)
--- NOTE | 2019-04-08 16:14 | PDOC.HOSPP ---
- Subjective Encounter Date: 04/08/19 Encounter Time: 16:12 Subjective: Mr. Ribeiro was seen today in follow-up of peritonitis, and ESRD. He does not have any complaints today - Objective Vital Signs & Weight: Vital Signs (12 hours) Temp Pulse Resp BP Pulse Ox 04/08/19 08:00 92 L 04/08/19 07:51 97.9 F 89 18 91/58 L 92 L Weight Admit Weight 217 lb Weight 217 lb 2.485 oz Most Recent Monitor Data Heart Rate from ECG 75 NIBP 126/77 NIBP BP-Mean 93 Respiration from ECG 19 SpO2 100 I&O: 04/07/19 04/08/19 04/09/19 06:59 06:59 06:59 Intake Total 1100 360 Balance 1100 360 Result Diagrams: 04/08/19 11:47 04/08/19 11:47 Hospitalist ROS - Medication Medications: Active Medications Generic Name Dose Route Start Last Admin Trade Name Freq PRN Reason Stop Dose Admin Acetaminophen 650 mg 03/31/19 16:43 04/08/19 13:48 Tylenol PO 650 mg Q4H PRN Administration Headache/Fever/Mild Pain (1-3) Calcitriol 0.5 mcg 04/01/19 09:00 04/08/19 10:02 Rocaltrol PO 0.5 mcg DAILY JASBIR Administration Calcium Acetate 2,001 mg 03/31/19 17:00 04/08/19 13:39 Phoslo PO 2,001 mg TID-WM JASBIR Administration Cholecalciferol 2,000 units 04/01/19 09:00 04/08/19 10:01 Vitamin D3 PO 2,000 units DAILY JASBIR Administration Cinacalcet 30 mg 04/01/19 09:00 04/08/19 10:02 Sensipar PO 30 mg DAILY JASBIR Administration Epoetin Tanner-epbx 7,500 unit 04/01/19 09:00 04/08/19 15:34 Retacrit SC 7,500 unit Q7D JASBIR Administration Famotidine 20 mg 04/02/19 09:00 04/08/19 10:02 Pepcid PO 20 mg DAILY JASBIR Administration Ferrous Sulfate 325 mg 04/01/19 08:00 04/08/19 10:03 Feosol PO 325 mg QAM-WM JASBIR Administration Heparin Sodium (Porcine) 5,000 units 04/01/19 21:00 04/08/19 15:34 Heparin SC 5,000 units TID JASBIR Administration Ceftriaxone Sodium 2 gm/ 100 mls @ 200 mls/hr 04/07/19 14:00 04/08/19 15:34 Sodium Chloride IVPB 100 mls Q24HR JASBIR Administration Loratadine 10 mg 04/01/19 09:00 04/08/19 10:03 Claritin PO 10 mg DAILY JASBIR Administration Ondansetron HCl 4 mg 03/31/19 16:43 04/03/19 09:01 Zofran IVP 4 mg Q6H PRN Administration Nausea/Vomiting Sevelamer Carbonate 2,400 mg 04/02/19 12:00 04/08/19 13:39 Renvela PO 2,400 mg TID-WM JASBIR Administration Terazosin HCl 4 mg 04/07/19 21:00 04/07/19 20:58 Hytrin PO 4 mg HS JASBIR Administration Vancomycin HCl 125 mg 03/31/19 23:00 04/08/19 11:39 First Vancomycin PO 125 mg 0500,1100,1700,2300 JASBIR Administration Vitamin B Complex/Vit C/Folic Acid 1 tab 04/01/19 09:00 04/08/19 10:03 Nephro-Sheryl Tablet PO 1 tab DAILY JASBIR Administration - Exam Eye: PERRL Heart: RRR, no murmur, no gallops, no rubs, normal peripheral pulses Respiratory: CTAB, no wheezes, no rales, no ronchi, normal chest expansion Gastrointestinal: soft, non-tender, non-distended, normal bowel sounds, no palpable masses, no hepatomegaly Extremities: no cyanosis, no edema Hosp A/P (1) Peritoneal dialysis catheter dysfunction Code(s): T85.611A - BREAKDOWN OF INTRAPERITONEAL DIALYSIS CATHETER, INIT Status: Acute (2) Acute peritonitis Code(s): K65.0 - GENERALIZED (ACUTE) PERITONITIS Status: Acute (3) ESRD (end stage renal disease) on dialysis Code(s): N18.6 - END STAGE RENAL DISEASE; Z99.2 - DEPENDENCE ON RENAL DIALYSIS Status: Chronic (4) HTN (hypertension) Code(s): I10 - ESSENTIAL (PRIMARY) HYPERTENSION Status: Chronic - Plan * Acute peritonitis- ID recommendations noted- he is currently on Rocephin and will need 4 weeks of Cipro upon discharge * ESRD- continue HD for now- he may be transitioned back to PD- as per Nephrology * HTN- blood pressure is stable * Continue PT- * Home when cleared by Nephrology
[2019-04-08] MEDS: Terazosin HCl 1 MG CAP PO SCH (21:30)
[2019-04-09] MEDS: Vancomycin HCl 25 MG/ML Oral PO SCH ×4 (05:17→22:38)
[2019-04-09 09:14] LABS: Anion Gap 16 mmol/L (10-20); BUN (Urea Nitrogen) 37 mg/dL (8.4-25.7); Calc. Creatinine Clearance 13 mL/min (70-130); Calcium 8.9 mg/dL (7.8-10.44); Carbon Dioxide 28 mmol/L (22-29); Chloride 100 mmol/L (98-107); Estimated GFR-MDRD 7; Glucose 97 mg/dL (70-105); Potassium 3.6 mmol/L (3.5-5.1); Sodium 140 mmol/L (136-145)
--- NOTE | 2019-04-09 09:38 | PRG ---
DATE OF SERVICE: 04/09/2019 SUBJECTIVE: Mr. Ribeiro is a 58-year-old white male, who was admitted for sepsis/peritonitis as well as uremia. He underwent emergent hemodialysis. In addition, he was started empirically on IV antibiotics and currently being shifted to p.o. antibiotics. His PD catheter was also not working. This was revised surgically by Dr. Regan. He did undergo CCPD last night and the PD was noted to be functional, but there was no fluid removed. My plan is to use a 2.5% PD solution tonight. We will hold off hemodialysis. No other complaints. OBJECTIVE: VITAL SIGNS: Blood pressure 95/51, heart rate 62, respiratory rate 16, temperature 97.8. GENERAL: Noted to be awake, alert, comfortable, not in distress. SKIN: Adequate turgor. HEENT: Slightly pale conjunctivae. Anicteric sclerae. NECK: No neck mass. No carotid bruits. No JVD. CHEST: No deformities. LUNGS: Clear breath sounds. HEART: Normal sinus rhythm. No murmur. No gallops. No rubs. ABDOMEN: Globular, soft, nontender. No masses. EXTREMITIES: No edema. No deformities. MEDICATIONS: Medications of April 09, 2019, reviewed. LABORATORY DATA: Laboratories of April 08, 2019, hemoglobin 8.4, white count 5.1. On April 09, 2019, sodium 140, potassium 3.6, chloride 100, carbon dioxide 28 , BUN 37, creatinine 8.25, glucose 140, calcium 8.9, phosphorus is 5.2. ASSESSMENT AND PLAN: 1. End-stage renal disease, stable. Hold off hemodialysis. Continue CCPD regimen. We will use a 2.5% PD solution alternating with 1.5% PD solution. I have also extended his PD time from 8 hours to 9 hours. We will use a 1.5% fill volume. 2. Peritonitis, clinically much improved. 3. Anemia, continuing weekly Epogen. Continue supportive care. Job ID: [id number] [facility]
[2019-04-09] MEDS: Folic Acid/Vit B Comp W-C PO SCH (10:54)
[2019-04-09] MEDS: Calcium Acetate 667 MG CAP PO SCH ×3 (10:54→16:38)
[2019-04-09] MEDS: Famotidine 20 MG TAB PO SCH (10:54)
[2019-04-09] MEDS: Ferrous Sulfate 325 MG TAB PO SCH (10:54)
[2019-04-09] MEDS: Sevelamer Carbonate 800 MG TAB PO SCH ×3 (10:54→16:38)
[2019-04-09] MEDS: Calcitriol 0.25 MCG CAP PO SCH (10:55)
[2019-04-09] MEDS: Cinacalcet HCl 30 MG TAB PO SCH (10:55)
[2019-04-09] MEDS: Heparin 5,000 UNITS/ML VIAL SC SCH ×3 (10:55→20:18)
[2019-04-09] MEDS: Loratadine 10 MG TAB PO SCH (10:55)
[2019-04-09] MEDS: cefTRIAXone\\ROCEPHIN 2 GM in Sodium Chloride 0.9% 100 ML IVPB SCH (15:30)
--- NOTE | 2019-04-09 16:04 | PDOC.HOSPP ---
- Subjective Encounter Date: 04/09/19 Encounter Time: 16:02 Subjective: Mr. Ribeiro was seen today in follow-up of peritonitis and malfunctioning PD catheter. He does not have any complaints. - Objective Vital Signs & Weight: Vital Signs (12 hours) Temp Pulse Resp BP Pulse Ox 04/09/19 08:00 99 04/09/19 07:47 97.8 F 82 16 95/51 L 99 Weight Admit Weight 217 lb Weight 217 lb 2.485 oz Most Recent Monitor Data Heart Rate from ECG 75 NIBP 126/77 NIBP BP-Mean 93 Respiration from ECG 19 SpO2 100 I&O: 04/08/19 04/09/19 04/10/19 06:59 06:59 06:59 Intake Total 1100 1200 360 Balance 1100 1200 360 Result Diagrams: 04/08/19 11:47 04/09/19 08:32 Hospitalist ROS - Medication Medications: Active Medications Generic Name Dose Route Start Last Admin Trade Name Freq PRN Reason Stop Dose Admin Acetaminophen 650 mg 03/31/19 16:43 04/08/19 13:48 Tylenol PO 650 mg Q4H PRN Administration Headache/Fever/Mild Pain (1-3) Calcitriol 0.5 mcg 04/01/19 09:00 04/09/19 10:55 Rocaltrol PO 0.5 mcg DAILY JASBIR Administration Calcium Acetate 2,001 mg 03/31/19 17:00 04/09/19 15:39 Phoslo PO Not Given TID-[facility] Cholecalciferol 2,000 units 04/01/19 09:00 04/09/19 10:55 Vitamin D3 PO 2,000 units DAILY JASBIR Administration Cinacalcet 30 mg 04/01/19 09:00 04/09/19 10:55 Sensipar PO 30 mg DAILY JASBIR Administration Epoetin Tanner-epbx 7,500 unit 04/01/19 09:00 04/08/19 15:34 Retacrit SC 7,500 unit Q7D JASBIR Administration Famotidine 20 mg 04/02/19 09:00 04/09/19 10:54 Pepcid PO 20 mg DAILY JASBIR Administration Ferrous Sulfate 325 mg 04/01/19 08:00 04/09/19 10:54 Feosol PO 325 mg QAM-WM [facility] Administration Heparin Sodium (Porcine) 5,000 units 04/01/19 21:00 04/09/19 10:55 Heparin SC 5,000 units TID JASBIR Administration Ceftriaxone Sodium 2 gm/ 100 mls @ 200 mls/hr 04/07/19 14:00 04/09/19 15:30 Sodium Chloride IVPB 100 mls Q24HR JASBIR Administration Loratadine 10 mg 04/01/19 09:00 04/09/19 10:55 Claritin PO 10 mg DAILY JASBIR Administration Ondansetron HCl 4 mg 03/31/19 16:43 04/03/19 09:01 Zofran IVP 4 mg Q6H PRN Administration Nausea/Vomiting Sevelamer Carbonate 2,400 mg 04/02/19 12:00 04/09/19 15:39 Renvela PO Not Given TID-WM JASBIR Terazosin HCl 4 mg 04/07/19 21:00 04/08/19 21:30 Hytrin PO 4 mg HS JASBIR Administration Vancomycin HCl 125 mg 03/31/19 23:00 04/09/19 13:05 First Vancomycin PO 125 mg 0500,1100,1700,2300 JASBIR Administration Vitamin B Complex/Vit C/Folic Acid 1 tab 04/01/19 09:00 04/09/19 10:54 Nephro-Sheryl Tablet PO 1 tab DAILY JASBIR Administration - Exam Eye: PERRL Respiratory: CTAB, no wheezes, no rales, no ronchi, no tachypnea, normal percussion Gastrointestinal: soft, non-tender, non-distended, normal bowel sounds, no palpable masses Extremities: no cyanosis, no clubbing, no edema Hosp A/P (1) Peritoneal dialysis catheter dysfunction Code(s): T85.611A - BREAKDOWN OF INTRAPERITONEAL DIALYSIS CATHETER, INIT Status: Acute (2) Acute peritonitis Code(s): K65.0 - GENERALIZED (ACUTE) PERITONITIS Status: Acute (3) ESRD (end stage renal disease) on dialysis Code(s): N18.6 - END STAGE RENAL DISEASE; Z99.2 - DEPENDENCE ON RENAL DIALYSIS Status: Chronic (4) HTN (hypertension) Code(s): I10 - ESSENTIAL (PRIMARY) HYPERTENSION Status: Chronic - Plan * Acute peritonitis- ID recommendations noted- will transition him to oral antibiotics * ESRD- he will have PD tonight- discussed with Dr. Pedraza * HTN- blood pressure is stable * Continue PT- * Anticipate home tomorrow
--- NOTE | 2019-04-09 16:18 | PDOC.GSPN ---
Surgery Progress Note: Subj - Subjective Narrative: Patient feels well. He denies abdominal pain. No leakage from his port sites with peritoneal dialysis. Incisions are healing well. Assessment/plan: Doing well status post laparoscopic washout and repositioning of peritoneal dialysis catheter. This appears to be functioning adequately for now. He can follow up in my clinic in 2 weeks' time. Please contact me if problems arise with the peritoneal dialysis catheter. Signing off for now. Surgery Progress Note: Obj - Vital signs Vital signs: Vital Signs - Most Recent Temp Pulse Resp BP Pulse Ox 97.8 F 82 16 95/51 L 99 04/09/19 07:47 04/09/19 07:47 04/09/19 07:47 04/09/19 07:47 04/09/19 08:00 Surgery Progress Note: Results - Labs Result Diagrams: 04/08/19 11:47 04/09/19 08:32 Lab results: Laboratory Results - last 24 hr 04/09/19 08:32 Sodium 140 Potassium 3.6 Chloride 100 Carbon Dioxide 28 Anion Gap 16 BUN 37 H Creatinine 8.25 H Estimated GFR (MDRD) 7 Glucose 97 Calcium 8.9 Surgery Progress Note: A/P - Problem (1) ESRD (end stage renal disease) on dialysis Current Visit: No Code(s): N18.6 - END STAGE RENAL DISEASE; Z99.2 - DEPENDENCE ON RENAL DIALYSIS Status: Chronic (2) Peritoneal dialysis catheter dysfunction Current Visit: Yes Code(s): T85.611A - BREAKDOWN OF INTRAPERITONEAL DIALYSIS CATHETER, INIT Status: Acute (3) Acute peritonitis Current Visit: No Code(s): K65.0 - GENERALIZED (ACUTE) PERITONITIS Status: Acute
[2019-04-09] MEDS: Cipro 250 MG TAB PO SCH (20:18)
[2019-04-09] MEDS: Terazosin HCl 1 MG CAP PO SCH (20:18)
[2019-04-10] MEDS: Cipro 250 MG TAB PO SCH ×2 (05:48→20:33)
[2019-04-10] MEDS: Vancomycin HCl 25 MG/ML Oral PO SCH ×4 (05:48→23:07)
[2019-04-10 06:10] LABS: #Eosinphils 0.1 thou/uL (0.0-0.7); #Lymphocytes 0.8 thou/uL (1.20-3.40); #Monocytes 0.5 thou/uL (0.11-0.59); #Neutrophils 2.2 thou/uL (1.40-6.50); %Basophils 1.4 % (0.0-1.0); %Eosinophils 1.8 % (0.0-10.0); %Lymphocytes 21.6 % (21.0-51.0); %Monocytes 12.8 % (0.0-10.0); %Neutrophils 62.4 % (42.0-75.0); Hemoglobin 7.7 g/dL (14.0-18.0); Mean Corpuscular HGB CONC 31.9 g/dL (32.0-36.0); Mean Corpuscular Hemoglobin 30.9 pg (27.0-31.0); Mean Platelet Volume 8.1 fL (7.4-10.4); Platelet Count 145 thou/uL (130-400); RBC Distribution Width 12.1 % (11.5-14.5); White Blood Cell (WBC) Count 3.5 thou/uL (4.8-10.8)
[2019-04-10 06:32] LABS: Anion Gap 13 mmol/L (10-20); BUN (Urea Nitrogen) 39 mg/dL (8.4-25.7); Calc. Creatinine Clearance 11 mL/min (70-130); Calcium 8.8 mg/dL (7.8-10.44); Carbon Dioxide 29 mmol/L (22-29); Chloride 101 mmol/L (98-107); Estimated GFR-MDRD 5; Glucose 95 mg/dL (70-105); Potassium 3.4 mmol/L (3.5-5.1); Sodium 140 mmol/L (136-145)
[2019-04-10] MEDS ORDERED: Potassium Chloride 20 MEQ TAB PO SCH (08:45)
--- NOTE | 2019-04-10 09:04 | PRG ---
DATE OF SERVICE: 04/10/2019 SUBJECTIVE: Mr. Ribeiro is a 58-year-old white male with ESRD, was admitted for sepsis/peritonitis. He was treated with IV antibiotics with improvement of said infection. In addition, his PD catheter was nonfunctional and this was revised by Dr. Regan. We are currently using a CCPD last night with this patient. The patient is also complaining of some mild tenderness on the belly. He denies any associated fever. OBJECTIVE: VITAL SIGNS: Blood pressure 103/70, heart rate 92, respiratory rate 20, temperature 98, and pulse ox 96%. GENERAL: Awake, alert, comfortable, obese, not in distress. SKIN: Adequate turgor. HEENT: Slightly pale conjunctivae. Anicteric sclerae. NECK: No neck mass. No carotid bruits. No JVD. CHEST: No deformities. Lungs clear breath sounds. No wheezing. No crackles. HEART: Normal sinus rhythm. No murmur. No gallops. No rubs. ABDOMEN: Mildly tender. Positive for PD catheter. EXTREMITIES: No edema. No deformities. MEDICATIONS: Medications of April 10, 2019, were reviewed. LABORATORY DATA: Laboratories of April 10, 2019; white count 3.5, hemoglobin 7.7, sodium 140, potassium 3.4, chloride 108, carbon dioxide 29, BUN 39, creatinine 9.79, calcium 8.8, phosphorus 5.2. ASSESSMENT AND PLAN: 1. End-stage renal disease, stable. The patient underwent CCPD last night. Fluid removal, about 150 mL was removed. Since the patient is still at two week to do his CAPD, we will place him on backup hemodialysis for the next 1-2 weeks. Once he is more stronger and can do his CAPD, we will resume back his peritoneal dialysis regimen. 2. Hyperphosphatemia, much improved with phosphorus 5.2. 3. Anemia. Continuing current Epogen regimen. 4. Mild hypokalemia. KCl 40 mEq one tablet will be given. 5. Peritonitis, resolved, currently on p.o. antibiotics. The plan is to discharge him today. I agree with current plan. We will follow him up at the dialysis unit. Job ID: [id number]
[2019-04-10] MEDS: Sevelamer Carbonate 800 MG TAB PO SCH ×3 (09:10→16:50)
[2019-04-10] MEDS: Acetaminophen 325 MG TAB PO PRN (09:10)
[2019-04-10] MEDS: Calcitriol 0.25 MCG CAP PO SCH (09:10)
[2019-04-10] MEDS: Calcium Acetate 667 MG CAP PO SCH ×3 (09:10→16:50)
[2019-04-10] MEDS: Ferrous Sulfate 325 MG TAB PO SCH (09:10)
[2019-04-10] MEDS: Folic Acid/Vit B Comp W-C PO SCH (09:10)
[2019-04-10] MEDS: Cinacalcet HCl 30 MG TAB PO SCH (09:11)
[2019-04-10] MEDS: Famotidine 20 MG TAB PO SCH (09:11)
[2019-04-10] MEDS: Loratadine 10 MG TAB PO SCH (09:11)
[2019-04-10] MEDS: Heparin 5,000 UNITS/ML VIAL SC SCH ×3 (09:11→20:33)
[2019-04-10 09:30] LABS: Hemoglobin 7.9 g/dL (14.0-18.0); Platelet Count 139 thou/uL (130-400)
--- NOTE | 2019-04-10 15:44 | PDOC.HOSPP ---
- Subjective Encounter Date: 04/10/19 Encounter Time: 15:42 Subjective: Mr. Collins was seen today in follow-up of peritonitis. He does not have any complaints. He denies abdominal pain. - Objective Vital Signs & Weight: Vital Signs (12 hours) Temp Pulse Resp BP Pulse Ox 04/10/19 11:49 97.6 F 93 18 106/69 97 04/10/19 08:11 97.4 F L 72 18 94/58 L 97 04/10/19 08:00 97 Weight Admit Weight 217 lb Weight 217 lb 2.485 oz Most Recent Monitor Data Heart Rate from ECG 75 NIBP 126/77 NIBP BP-Mean 93 Respiration from ECG 19 SpO2 100 I&O: 04/09/19 04/10/19 04/11/19 06:59 06:59 06:59 Intake Total 1200 600 Balance 1200 600 Result Diagrams: 04/10/19 09:05 04/10/19 05:50 Hospitalist ROS - Medication Medications: Active Medications Generic Name Dose Route Start Last Admin Trade Name Brittonq PRN Reason Stop Dose Admin Acetaminophen 650 mg 03/31/19 16:43 04/10/19 09:10 Tylenol PO 650 mg Q4H PRN Administration Headache/Fever/Mild Pain (1-3) Calcitriol 0.5 mcg 04/01/19 09:00 04/10/19 09:10 Rocaltrol PO 0.5 mcg DAILY JASBIR Administration Calcium Acetate 2,001 mg 03/31/19 17:00 04/10/19 12:28 Phoslo PO 2,001 mg TID- JASBIR Administration Cholecalciferol 2,000 units 04/01/19 09:00 04/10/19 09:11 Vitamin D3 PO 2,000 units DAILY JASBIR Administration Cinacalcet 30 mg 04/01/19 09:00 04/10/19 09:11 Sensipar PO 30 mg DAILY JASBIR Administration Ciprofloxacin 250 mg 04/09/19 20:00 04/10/19 05:48 Cipro PO 250 mg BID@0600,2000 JASBIR Administration Epoetin Tanner-epbx 7,500 unit 04/01/19 09:00 04/08/19 15:34 Retacrit SC 7,500 unit Q7D JASBIR Administration Famotidine 20 mg 04/02/19 09:00 04/10/19 09:11 Pepcid PO 20 mg DAILY JASBIR Administration Ferrous Sulfate 325 mg 04/01/19 08:00 04/10/19 09:10 Feosol PO 325 mg QAM-WM JASBIR Administration Heparin Sodium (Porcine) 5,000 units 04/01/19 21:00 04/10/19 09:11 Heparin SC 5,000 units TID JASBIR Administration Loratadine 10 mg 04/01/19 09:00 04/10/19 09:11 Claritin PO 10 mg DAILY JASBIR Administration Ondansetron HCl 4 mg 03/31/19 16:43 04/03/19 09:01 Zofran IVP 4 mg Q6H PRN Administration Nausea/Vomiting Sevelamer Carbonate 2,400 mg 04/02/19 12:00 04/10/19 12:28 Renvela PO 2,400 mg TID-WM JASBIR Administration Terazosin HCl 4 mg 04/07/19 21:00 04/09/19 20:18 Hytrin PO 4 mg HS JASBIR Administration Vancomycin HCl 125 mg 03/31/19 23:00 04/10/19 12:28 First Vancomycin PO 125 mg 0500,1100,1700,2300 JASBIR Administration Vitamin B Complex/Vit C/Folic Acid 1 tab 04/01/19 09:00 04/10/19 09:10 Nephro-Sheryl Tablet PO 1 tab DAILY JASBIR Administration - Exam Eye: PERRL Heart: RRR, no murmur, no gallops, no rubs, normal peripheral pulses Respiratory: CTAB, no wheezes, no rales, no ronchi, normal chest expansion Gastrointestinal: soft, non-tender, non-distended, normal bowel sounds, no palpable masses Extremities: no cyanosis, no clubbing, no edema Hosp A/P (1) Peritoneal dialysis catheter dysfunction Code(s): T85.611A - BREAKDOWN OF INTRAPERITONEAL DIALYSIS CATHETER, INIT Status: Acute (2) Acute peritonitis Code(s): K65.0 - GENERALIZED (ACUTE) PERITONITIS Status: Acute (3) ESRD (end stage renal disease) on dialysis Code(s): N18.6 - END STAGE RENAL DISEASE; Z99.2 - DEPENDENCE ON RENAL DIALYSIS Status: Chronic (4) HTN (hypertension) Code(s): I10 - ESSENTIAL (PRIMARY) HYPERTENSION Status: Chronic - Plan * Acute peritonitis-continue Cipro * ESRD- continue PD * HTN- blood pressure is stable * Anemia- suspect due to renal disease- his H&H has been trending down. possible from frequent blood draws- however will check stool for occult blood, and repeat his H&H in the AM * Continue PT- * Anticipate home tomorrow ( patient did not have a way home today )
[2019-04-10] MEDS ORDERED: HEPARIN FS SCH (17:30)
[2019-04-10] MEDS ORDERED: PERIT DIALYSIS NO 6 FS SCH (17:30)
[2019-04-10] MEDS ORDERED: DEX FS SCH (17:30)
[2019-04-10] MEDS: Terazosin HCl 1 MG CAP PO SCH (20:33)
[2019-04-11 04:49] VITALS: BP 103/65; TEMP 97.6
[2019-04-11] MEDS: Cipro 250 MG TAB PO SCH (05:24)
[2019-04-11] MEDS: Vancomycin HCl 25 MG/ML Oral PO SCH (05:24)
[2019-04-11 06:09] LABS: Hemoglobin 7.7 g/dL (14.0-18.0); Platelet Count 147 thou/uL (130-400)
[2019-04-11] MEDS: Ferrous Sulfate 325 MG TAB PO SCH (09:18)
[2019-04-11] MEDS: Cinacalcet HCl 30 MG TAB PO SCH (09:19)
[2019-04-11] MEDS: Folic Acid/Vit B Comp W-C PO SCH (09:19)
[2019-04-11] MEDS: Acetaminophen 325 MG TAB PO PRN (09:19)
[2019-04-11] MEDS: Loratadine 10 MG TAB PO SCH (09:19)
[2019-04-11] MEDS: Calcium Acetate 667 MG CAP PO SCH ×3 (09:19→18:12)
[2019-04-11] MEDS: Calcitriol 0.25 MCG CAP PO SCH (09:19)
[2019-04-11] MEDS: Sevelamer Carbonate 800 MG TAB PO SCH ×3 (09:19→18:12)
[2019-04-11] MEDS: Heparin 5,000 UNITS/ML VIAL SC SCH ×2 (09:20→16:46)
[2019-04-11] MEDS: Famotidine 20 MG TAB PO SCH (10:27)
--- NOTE | 2019-04-11 11:16 | PRG ---
DATE OF SERVICE: SUBJECTIVE: Mr. Ribeiro is a 58-year-old white male with ESRD and was seen for management of his ESRD. He came in initially septic from peritonitis. He was also uremic at that time. He underwent emergent hemodialysis. During the last several days, his PD catheter has been semi-functional and we are doing PD. He has no new complaints today. He is doing well. OBJECTIVE: VITAL SIGNS: Blood pressure 103/65, heart rate 90, respiratory rate 18, temperature 97.6, and pulse ox 100%. GENERAL: Awake, alert, and comfortable. SKIN: Adequate turgor. HEENT: Slightly pale conjunctivae. Anicteric sclerae. NECK: No neck mass. No carotid bruits. No JVD. CHEST: No deformities. LUNGS: Clear breath sounds. HEART: Normal sinus rhythm. ABDOMEN: Globular and soft. EXTREMITIES: No edema. MEDICATIONS: Medications of April 11, 2019, were reviewed. LABORATORY DATA: April 11, 2019, hemoglobin 7.7. April 07, 2019; BUN is 78 and creatinine 10.92. ASSESSMENT AND PLAN: 1. End-stage renal disease, stable. Continue current CCPD regimen. We are using a 1.5% fill volume with the patient. He is declining to use a 2 L fill volume. Continue current management for the moment. On discharge, he will be placed back on backup hemodialysis until the patient can regain full strength to do his own peritoneal dialysis - he usually does CAPD. 2. Anemia. Continuing weekly Epogen. Adjust Epogen as needed. No indication for any blood transfusion. Please note, stool cards were checked and were negative. 3. Status post sepsis/status post peritonitis, clinically much improved on p.o. antibiotics. Job ID: [id number]
--- NOTE | 2019-04-11 14:54 | PDOC.HOSPP ---
- Subjective Encounter Date: 04/11/19 Encounter Time: 14:53 Subjective: Mr. Ribeiro was seen today in follow-up of periotnitins. He does not have any complaints. - Objective Vital Signs & Weight: Vital Signs (12 hours) Temp Pulse Resp BP Pulse Ox 04/11/19 08:00 96 04/11/19 04:00 97.6 F 90 18 103/65 100 Weight Admit Weight 217 lb Weight 217 lb 2.485 oz Most Recent Monitor Data Heart Rate from ECG 75 NIBP 126/77 NIBP BP-Mean 93 Respiration from ECG 19 SpO2 100 I&O: 04/10/19 04/11/19 04/12/19 06:59 06:59 06:59 Intake Total 600 1000 Output Total 206 Balance 600 794 Result Diagrams: 04/11/19 05:50 04/10/19 05:50 Hospitalist ROS - Medication Medications: Active Medications Generic Name Dose Route Start Last Admin Trade Name Freq PRN Reason Stop Dose Admin Acetaminophen 650 mg 03/31/19 16:43 04/11/19 09:19 Tylenol PO 650 mg Q4H PRN Administration Headache/Fever/Mild Pain (1-3) Calcitriol 0.5 mcg 04/01/19 09:00 04/11/19 09:19 Rocaltrol PO 0.5 mcg DAILY JASBIR Administration Calcium Acetate 2,001 mg 03/31/19 17:00 04/11/19 12:21 Phoslo PO 2,001 mg TID-WM JASBIR Administration Cholecalciferol 2,000 units 04/01/19 09:00 04/11/19 09:18 Vitamin D3 PO 2,000 units DAILY JASBIR Administration Cinacalcet 30 mg 04/01/19 09:00 04/11/19 09:19 Sensipar PO 30 mg DAILY JASBIR Administration Ciprofloxacin 250 mg 04/09/19 20:00 04/11/19 05:24 Cipro PO 250 mg BID@0600,2000 JASBIR Administration Epoetin Tanner-epbx 7,500 unit 04/01/19 09:00 04/08/19 15:34 Retacrit SC 7,500 unit Q7D JASBIR Administration Famotidine 20 mg 04/02/19 09:00 04/11/19 10:27 Pepcid PO 20 mg DAILY JASBIR Administration Ferrous Sulfate 325 mg 04/01/19 08:00 04/11/19 09:18 Feosol PO 325 mg QAM-WM JASBIR Administration Heparin Sodium (Porcine) 5,000 units 04/01/19 21:00 04/11/19 09:20 Heparin SC 5,000 units TID JASBIR Administration Loratadine 10 mg 04/01/19 09:00 04/11/19 09:19 Claritin PO 10 mg DAILY JASIBR Administration Ondansetron HCl 4 mg 03/31/19 16:43 04/03/19 09:01 Zofran IVP 4 mg Q6H PRN Administration Nausea/Vomiting Sevelamer Carbonate 2,400 mg 04/02/19 12:00 04/11/19 12:22 Renvela PO 2,400 mg TID-WM JASBIR Administration Terazosin HCl 4 mg 04/07/19 21:00 04/10/19 20:33 Hytrin PO 4 mg HS JASBIR Administration Vitamin B Complex/Vit C/Folic Acid 1 tab 04/01/19 09:00 04/11/19 09:19 Nephro-Sheryl Tablet PO 1 tab DAILY JASBIR Administration - Exam Eye: PERRL Heart: RRR, no murmur, no gallops, no rubs, normal peripheral pulses Respiratory: CTAB, no wheezes, no rales, no ronchi, normal chest expansion, no tachypnea, normal percussion Gastrointestinal: soft, non-tender, non-distended, normal bowel sounds, no palpable masses Extremities: no edema Hosp A/P (1) Peritoneal dialysis catheter dysfunction Code(s): T85.611A - BREAKDOWN OF INTRAPERITONEAL DIALYSIS CATHETER, INIT Status: Acute (2) Acute peritonitis Code(s): K65.0 - GENERALIZED (ACUTE) PERITONITIS Status: Acute (3) ESRD (end stage renal disease) on dialysis Code(s): N18.6 - END STAGE RENAL DISEASE; Z99.2 - DEPENDENCE ON RENAL DIALYSIS Status: Chronic (4) HTN (hypertension) Code(s): I10 - ESSENTIAL (PRIMARY) HYPERTENSION Status: Chronic - Plan * Acute peritonitis-continue Cipro * ESRD- continue PD * HTN- blood pressure is stable * Anemia- occult blood was negative * Home today
--- NOTE | 2019-04-11 19:44 | DIS ---
DATE OF ADMISSION: 03/31/2019 DATE OF DISCHARGE: 04/11/2019 DISCHARGE DISPOSITION: Home. DISCHARGE DIAGNOSES: 1. Acute peritonitis. 2. End-stage renal disease, on peritoneal dialysis. 3. Hypertension. 4. History of polycystic kidney disease. 5. Anemia of renal disease. DISCHARGE MEDICATIONS: 1. Ciprofloxacin 250 mg one p.o. twice a day for 4 weeks. 2. Iron sulfate 325 mg daily. 3. Terazosin 2 mg at bedtime. 4. Potassium chloride 20 mEq daily. 5. Omeprazole 20 mg daily. 6. Multivitamin once a day. 7. Glucosamine chondroitin two tablets daily. 8. Fexofenadine 180 mg daily. 9. Iron sulfate 325 mg twice daily. 10. Sensipar 30 mg daily. 11. Vitamin D3 of 2000 units daily. 12. Coreg 12.5 mg twice a day. 13. Calcium acetate 2001 mg t.i.d. 14. Calcitriol 0.5 mcg p.o. daily. PROCEDURES: The patient had a right femoral temporary dialysis catheter placed. The patient also had revision of the PD catheter. The patient had initiation of hemodialysis temporarily while in the hospital. CODE STATUS: Full code. ALLERGIES: NO KNOWN DRUG ALLERGIES. HOSPITAL COURSE: Mr. Ribeiro is a pleasant 58-year-old gentleman, who was admitted to the hospital after having a nonfunctional peritoneal dialysis catheter. He was also having abdominal pain and was found to have peritonitis. He was started on IV antibiotics. General Surgery was consulted and he had revision of the PD catheter. He also had a temporary hemodialysis catheter placed and underwent hemodialysis during his hospital stay. He was seen also by Infectious Disease specialist and antibiotics were recommended for the peritonitis. There was an attempt to save the peritoneal catheter or the PD catheter, therefore, it is going to be left in. For this reason, the length of antibiotic therapy has been extended to 4 weeks postdischarge and he will be on ciprofloxacin for this. He also will be transitioned temporarily to hemodialysis and then transitioned back to peritoneal dialysis. The patient is to follow up with his primary care physician in 1 week and also with Nephrology as instructed. Job ID: [id number]
== END 2019-04-11 18:20 | disposition home or self-care (01) | DRG 907 ==
LOC: ERS 12:34 → CCU 15:28 → T4-B 04-02 16:02
PROVIDERS: ADMIT Hospitalist; ATTEND Hospitalist
PROC: 02HV33Z Insertion of Infusion Device into Superior Vena Cava, Percutaneous Approach (ICD-10-PCS; 2019-03-31)
PROC: 5A1D70Z Performance of Urinary Filtration, Intermittent, Less than 6 Hours Per Day (ICD-10-PCS; 2019-04-01)
PROC: 0WWG43Z Revision of Infusion Device in Peritoneal Cavity, Percutaneous Endoscopic Approach (ICD-10-PCS; principal; 2019-04-04)
PROC: 0JH63XZ Insertion of Tunneled Vascular Access Device into Chest Subcutaneous Tissue and Fascia, Percutaneous Approach (ICD-10-PCS; 2019-04-04)
PROC: 02HV33Z Insertion of Infusion Device into Superior Vena Cava, Percutaneous Approach (ICD-10-PCS; 2019-04-04)
PROC: B518ZZA Fluoroscopy of Superior Vena Cava, Guidance (ICD-10-PCS; 2019-04-04)
PROC: B548ZZA Ultrasonography of Superior Vena Cava, Guidance (ICD-10-PCS; 2019-04-04)
PROC: 3E1M39Z Irrigation of Peritoneal Cavity using Dialysate, Percutaneous Approach (ICD-10-PCS; 2019-04-07)
DX: T85.71XA Infection and inflammatory reaction due to peritoneal dialysis catheter, initial encounter (principal); N18.6 End stage renal disease; A41.59 Other Gram-negative sepsis; K65.0 Generalized (acute) peritonitis; A04.72 Enterocolitis due to Clostridium difficile, not specified as recurrent; E87.2 Acidosis; Q61.2 Polycystic kidney, adult type; N25.81 Secondary hyperparathyroidism of renal origin; N17.9 Acute kidney failure, unspecified; G93.49 Other encephalopathy; Y83.1 Surgical operation with implant of artificial internal device as the cause of abnormal reaction of the patient, or of later complication, without mention of misadventure at the time of the procedure; N40.0 Benign prostatic hyperplasia without lower urinary tract symptoms; I10 Essential (primary) hypertension; D63.1 Anemia in chronic kidney disease; E87.5 Hyperkalemia; T85.611A Breakdown (mechanical) of intraperitoneal dialysis catheter, initial encounter; E83.39 Other disorders of phosphorus metabolism; E87.6 Hypokalemia; Z99.2 Dependence on renal dialysis; Z79.899 Other long term (current) drug therapy; Z87.891 Personal history of nicotine dependence
CPT/HCPCS: 36415; 36556; 71045; 74177; 76705; 80048; 80053; 80069; 80076; 82274; 82550; 82553; 83605; 83690; 83735; 84100; 84443; 84484; 85014; 85018; 85025; 85049; 85060; 87040; 87070; 87077; 87149; 87186; 87205; 87324; 87340; 87449; 89051; 90935; 93005; 93010; 93970; 96361; 96365; 96367; 96375; C1752; C1769; G0257; G0365; J0692; J0696; J1642; J1644; J1650; J2001; J2185; J2405; J2704; J2997; J3010; J3370; J3490; J7050; J7070; P9047; Q5105; Q9967; S0020

== ENCOUNTER 2019-07-21 15:50 | Emergency (ER) | payer MEDICARE, OTHER ==
[2019-07-22 11:35] LABS: SARS-CoV-2 MS2 Positive; SARS-CoV-2 N Gene Negative; SARS-CoV-2 S Gene Negative; SARS-CoV-2 orf1ab Negative
== END 2019-07-21 17:29 | disposition home or self-care (01) ==
LOC: ERS 15:50
DX: R50.9 Fever, unspecified (principal); I12.0 Hypertensive chronic kidney disease with stage 5 chronic kidney disease or end stage renal disease; N18.6 End stage renal disease; Z20.828 Contact with and (suspected) exposure to other viral communicable diseases; Z87.891 Personal history of nicotine dependence; Z79.899 Other long term (current) drug therapy
CPT/HCPCS: 99283; U0003; 87635

== ENCOUNTER 2019-11-14 12:01 | Outpatient (CLI) | payer MEDICARE ==
--- NOTE | 2019-11-14 15:42 | ULT ---
Exam: Vein mapping for dialysis access HISTORY: End-stage renal disease. TECHNIQUE: Multiplanar grayscale and color Doppler images were obtained in a bilateral upper extremit y venous ultrasound. Spectral analysis of the Doppler waveforms of the vessels were performed. FINDINGS: The bilateral internal jugular and axillary veins demonstrate normal luminal compressibilit y and flow. Normal flow is seen in the bilateral subclavian veins. Right brachial artery 5.0 mm Right radial artery 2.1 mm Right ulnar artery 2.8 mm Left brachial artery 2.7 mm Left radial artery 2.2 mm Left ulnar artery 2. mm RIGHT CEPHALIC VEIN in millimeters 1.4 -- Shoulder 0.8 -- Upper arm 0.8 -- Mid upper arm 1.2-- Just proximal to the elbow 1.6 -- Just distal to the elbow 0.9 -- Forearm 0.5 -- Wrist RIGHT BASILIC VEIN in millimeters 2.7 -- Shoulder 2.6 -- Upper arm 1.8 -- Mid upper arm 2.6 -- Just proximal to the elbow 0.7 -- Just distal to the elbow 0.7 -- Forearm 0.4 -- Wrist LEFT CEPHALIC VEIN in millimeters 1.0 -- Shoulder 1.0 -- Upper arm 1.3 -- Mid upper arm 1.3 -- Just proximal to the elbow 0.6 -- Just distal to the elbow 0.6 -- Forearm 0.9 -- Wrist LEFT BASILIC VEIN in millimeters 1.3 -- Shoulder 1.5 -- Upper arm 0.7 -- Mid upper arm 1.1 -- Just proximal to the elbow 0.5 -- Just distal to the elbow 0.8 -- Forearm 0.3 -- Wrist IMPRESSION: Vein mapping for dialysis access as above
--- NOTE | 2019-11-14 15:51 | ULT ---
EXAM: US Arterial Dopper Upper Ext PROVIDED CLINICAL HISTORY: End-stage renal disease on hemodialysis. Peripheral vascular disease. COMPARISON: None FINDINGS: Grayscale, color-flow, Doppler evaluation, and spectral analysis of the bilateral upper extremity art erial vessels is performed with 2-D imaging. Triphasic arterial waveforms are seen within the bilateral subclavian, axillary, brachial, and radial arteries. Triphasic waveform is seen in the right ulnar artery, but there is a monophasic waveform in the left ulnar artery. Mildly diminished peak systolic velocities are seen in the left axillary, b rachial, and radial artery compared to the contralateral right upper extremity. This is overall nonspecific but suggests possibility of more proximal narrowing on the left. However, no significantl y elevated peak systolic velocities are seen within the left subclavian artery. IMPRESSION: Triphasic waveforms seen throughout the bilateral upper extremity arterial vessels; however, there is a monophasic waveform in the left ulnar artery with diminished peak systolic velocity suggesting atherosclerotic disease in this vessel. There is also mild asymmetric and decreased peak systolic blas ocities in the left axillary and brachial artery compared to the contralateral right upper extremity.
== END 2019-11-14 12:02 | disposition home or self-care (01) ==
LOC: ULT 12:01
PROVIDERS: ATTEND Surgery
DX: Z01.818 Encounter for other preprocedural examination (principal); I73.9 Peripheral vascular disease, unspecified; N18.6 End stage renal disease
CPT/HCPCS: 93923; G0365; 93970

== ENCOUNTER 2019-12-29 06:30 | Outpatient (CLI) | payer MEDICARE, OTHER ==
[2019-12-30 11:34] LABS: SARS-CoV-2 MS2 Positive; SARS-CoV-2 N Gene Negative; SARS-CoV-2 S Gene Negative; SARS-CoV-2 by NAA Not Detected (NotDetected); SARS-CoV-2 orf1ab Negative
== END 2019-12-29 06:31 | disposition home or self-care (01) ==
LOC: LABBT 06:30
PROVIDERS: ATTEND Surgery
DX: N18.6 End stage renal disease (principal); Z20.828 Contact with and (suspected) exposure to other viral communicable diseases
CPT/HCPCS: 87635; U0003

== ENCOUNTER 2020-01-02 06:06 | Day surgery (SDC) | payer MEDICARE ==
[2020-01-01 10:34] VITALS: BMI 34.7
[2020-01-02] MEDS ORDERED: Protamine Sulfate 50 MG/5 ML VIAL ONE (06:35)
[2020-01-02] MEDS ORDERED: Bupivacaine/Epinephrine 0.25% 30 ML VIAL ONE (06:35)
[2020-01-02] MEDS ORDERED: Heparin 5,000 UNITS/ML VIAL ONE (06:35)
[2020-01-02] MEDS ORDERED: Midazolam HCl 2 mg/2 ml Vial ONE ×3 (06:48→08:05)
[2020-01-02] MEDS ORDERED: Propofol 1,000 MG/100 ML VIAL IV ONE (06:48)
[2020-01-02] MEDS ORDERED: Fentanyl 100 MCG/2 ML VIAL ONE ×3 (06:48→07:51)
[2020-01-02 07:03] LABS: #Eosinphils 0.3 thou/uL (0.0-0.7); #Monocytes 0.8 thou/uL (0.11-0.59); #Neutrophils 4.8 thou/uL (1.40-6.50); %Basophils 0.7 % (0.0-1.0); %Eosinophils 4.1 % (0.0-10.0); %Lymphocytes 14.1 % (21.0-51.0); %Monocytes 11.6 % (0.0-10.0); %Neutrophils 69.5 % (42.0-75.0); Hemoglobin 12.4 g/dL (14.0-18.0); Mean Corpuscular HGB CONC 32.5 g/dL (32.0-36.0); Mean Corpuscular Hemoglobin 29.8 pg (27.0-31.0); Mean Corpuscular Volume 91.8 fL (78.0-98.0); Mean Platelet Volume 7.2 fL (7.4-10.4); Platelet Count 137 thou/uL (130-400); RBC Distribution Width 14.8 % (11.5-14.5); Red Blood Cell (RBC) Count 4.15 mill/uL (4.70-6.10); White Blood Cell (WBC) Count 6.9 thou/uL (4.8-10.8)
[2020-01-02 07:34] LABS: Anion Gap 16 mmol/L (10-20); BUN (Urea Nitrogen) 36 mg/dL (8.4-25.7); Calc. Creatinine Clearance 14 mL/min (70-130); Calcium 9.4 mg/dL (7.8-10.44); Carbon Dioxide 26 mmol/L (23-31); Chloride 98 mmol/L (98-107); Estimated GFR-MDRD 7; Glucose 88 mg/dL (80-115); Potassium 4.2 mmol/L (3.5-5.1); Sodium 136 mmol/L (136-145)
[2020-01-02] MEDS ORDERED: Lidocaine 2% Jelly 5 ML TUBE ONE (07:50)
[2020-01-02] MEDS ORDERED: PHENYLEPHRINE-NS 100 MCG/ML 10 ML SYRINGE ONE (10:39)
[2020-01-02] MEDS ORDERED: Heparin 1,000 UNITS/ML VIAL ONE (11:38)
--- NOTE | 2020-01-02 15:31 | PDOC.OP ---
Operative Note - Operative Note Operative Note: DATE OF PROCEDURE: PROCEDURE: Left Iftikhar AV fistula removal of peritoneal dialysis catheter. SURGEON: Ezio Regan M.D. PREOPERATIVE DIAGNOSIS: End-stage renal failure. POSTOPERATIVE DIAGNOSIS: End-stage renal failure. HISTORY: Patient with end-stage renal failure who requires permanent access for ongoing hemodialysis. After reviewing vein mapping the right side was found to be preferable, but the patient was unwilling to consider AV fistula placement on the right. For that reason the decision was made to proceed with a primary fistula on the left, excepting a higher rate of failure and higher risk of steal. PROCEDURE: After informed consent was obtained and appropriate preoperative antibiotics administered, the patient was taken to the operating room and was placed in supine position and general anesthesia was administered. A preoperative block had been placed by anesthesia and adequacy confirmed. The patient's arm was prepped and draped in standard sterile fashion. The palpable cephalic vein and radial artery were marked on the skin. An incision was made between these 2 structures and dissection carried down to the cephalic vein. This was felt to be of adequate caliber and quality to support an AV fistula. The vein was interrogated with cardiac dilators and easily accepted up to a 5 mm dilator. The vein was flushed with heparinized saline and clamped. A second incision was made over the radial artery and the vein tunneled subcutaneously to this incision taking care to avoid twisting the vein. The radial artery was identified and dissected free and was found to be relatively small but of good quality with no calcifications or atherosclerotic changes. This was dissected free. Heparin was administered systemically and allowed to circulate for 3 minutes. After the heparin had circulated for 3 minutes, the radial artery was clamped proximally and distally. An anterior arteriotomy was created with an 11 blade and extended with Thomason scissors. The vein was spatulated and an end-to-side anastomosis was created with excellent technical result. Prior to tying down the anastomosis, the arterial inflow was released flushing the anastomosis. The anastomosis was then secured and hemostasis was verified. Flow was established first through the fistula following which flow was restored through the artery. The patient had a good Doppler signal to the level of the antecubital fossa. The wound was irrigated and examined for hemostasis was again confirmed to be excellent. The subcutaneous tissues were reapproximated with a running 3-0 Monocryl sutures and the skin was closed with running 4-0 subcuticular Monocryl suture. Dermabond dressings were placed. Attention was then turned to removal of the tunneled peritoneal dialysis catheter. The abdomen had been prepped and draped sterilely and local anesthesia was infused the skin and subcutaneous tissue surrounding the subcutaneous cuff. The skin was excised at the exit site and the subcutaneous cuff dissected free. The catheter was traced down to the rectus sheath which was incised and the intramuscular cuff dissected free and the entire peritoneal dialysis catheter removed and confirmed to be intact. This was discarded. The anterior rectus sheath was closed with a 0 Vicryl suture under direct vision and the subcutaneous tissues were reapproximated with 3-0 Monocryl suture. The skin incision was partially closed with 4-0 Monocryl suture and sterile gauze packing placed into the subcutaneous tissues and the dressing secured with Tegaderm. The patient was instructed postoperatively to remove the gauze and Tegaderm in 3 days and to cover the area with a Band-Aid. The patient was taken to recovery in good condition. Estimated blood loss was minimal. There were no complications. There were no specimens.
--- NOTE | 2020-01-04 12:02 | EKG ---
Test Reason : PREOP Blood Pressure : / mmHG Vent. Rate : 095 BPM Atrial Rate : 095 BPM P-R Int : 136 ms QRS Dur : 084 ms QT Int : 354 ms P-R-T Axes : 057 -27 031 degrees QTc Int : 444 ms Normal sinus rhythm Normal ECG No previous ECGs available Confirmed by LAYTON ANDRADE (2) on 01/04/2020 12:01:53 PM Referred By: BRENDA Confirmed By:LAYTON ANDRADE
== END 2020-01-02 12:15 | disposition home or self-care (01) ==
LOC: SDC 06:06
PROVIDERS: ATTEND Surgery
PROC: 031B0ZF Bypass Right Radial Artery to Lower Arm Vein, Open Approach (ICD-10-PCS; principal; 2020-01-02)
PROC: 03P Upper Arteries, Removal (ICD-10-PCS; 2020-01-02)
DX: I12.0 Hypertensive chronic kidney disease with stage 5 chronic kidney disease or end stage renal disease (principal); N18.6 End stage renal disease; E78.49 Other hyperlipidemia; I25.10 Atherosclerotic heart disease of native coronary artery without angina pectoris; Q61.3 Polycystic kidney, unspecified; Z79.82 Long term (current) use of aspirin; Z79.899 Other long term (current) drug therapy; Z95.1 Presence of aortocoronary bypass graft
CPT/HCPCS: 80048; 85025; 93005; 93010; J0690; J1644; J2250; J2704; J2720; J3010

== ENCOUNTER 2020-06-08 15:01 | Emergency (ER) | payer MEDICARE ==
[2020-06-08] MEDS ORDERED: Sodium Bicarb 50 MEQ/50 ML Abboject 8.4% SYRINGE ONE (17:21)
[2020-06-08] MEDS ORDERED: EPINEPHrine 1 MG/10 ML Abboject SYRINGE ONE ×2 (17:21→19:03)
[2020-06-08] MEDS ORDERED: Atropine Sulfate 1 mg/10 ml Syringe ONE (17:21)
[2020-06-08] MEDS ORDERED: Calcium Chloride 1 GM/10 ML Abboject SYRINGE ONE (17:21)
[2020-06-08] MEDS ORDERED: Aspirin Chewable 81 MG TAB ONE (17:24)
[2020-06-08] MEDS ORDERED: Norepinephrine 4 MG/4 ML VIAL ONE ×2 (18:35→18:37)
[2020-06-08 19:04] LABS: Hemoglobin 9.8 g/dL (14.0-18.0); Mean Corpuscular HGB CONC 29.2 g/dL (32.0-36.0); Mean Corpuscular Hemoglobin 26.5 pg (27.0-31.0); Mean Corpuscular Volume 90.8 fL (78.0-98.0); RBC Distribution Width 15.1 % (11.5-14.5); White Blood Cell (WBC) Count 18.6 thou/uL (4.8-10.8)
[2020-06-08 19:23] LABS: ALT (SGPT) 49 U/L (8-55); AST (SGOT) 68 U/L (5-34); Albumin 2.8 g/dL (3.4-4.8); Alkaline Phosphatase 107 U/L (40-110); Anion Gap 37 mmol/L (10-20); BUN (Urea Nitrogen) 57 mg/dL (8.4-25.7); Bilirubin, Total 0.7 mg/dL (0.2-1.2); Calc. Creatinine Clearance 0 mL/min (70-130); Calcium 11.2 mg/dL (7.8-10.44); Carbon Dioxide 11 mmol/L (23-31); Chloride 98 mmol/L (98-107); Globulin 3.8 g/dL (2.4-3.5); Glucose 131 mg/dL (80-115); Potassium 5.5 mmol/L (3.5-5.1); Protein, Total 6.6 g/dL (5.8-8.1); Sodium 140 mmol/L (136-145)
[2020-06-08 19:27] LABS: Band 24 % (5-11); Burr Cells SLIGHT = 2-5 cells (100X) (0-1/hpf); Hypochromia SLIGHT = 6-15 cells (100X) (0-5/hpf); Lymphocytes 8 % (21-51); MDiff Complete? YES; Mean Platelet Volume 9.9 fL (7.4-10.4); Monocytes 2 % (0-10); Neutrophil 62 % (42-75); Ovalocytes SLIGHT = 2-5 cells (100X) (0-1/hpf); Platelet Count 107 thou/uL (130-400); Platelet Morphology Comment Appears Decreased; Polychromasia SLIGHT = 2-3 cells (100X) (0-2/hpf); Reactive Lymphocytes 4 % (0-10)
[2020-06-08 19:55] LABS: CKMB 5.8 ng/mL (0-6.6)
== END 2020-06-08 19:05 | disposition expired ==
LOC: ERS 15:01
DX: I46.9 Cardiac arrest, cause unspecified (principal); I12.0 Hypertensive chronic kidney disease with stage 5 chronic kidney disease or end stage renal disease; N18.6 End stage renal disease; Z99.2 Dependence on renal dialysis; Z87.891 Personal history of nicotine dependence
CPT/HCPCS: 31500; 71045; 80053; 82553; 83880; 84484; 85025; 92950; 93005; 94002; 96365; 96374; 96375; 96376; J0171; J0461